=== PATIENT | male | born 1965 | race Caucasian/White ===

== ENCOUNTER 2019-05-09 04:26 | Observation (INO) | payer MEDICARE, OTHER ==
[2019-05-09 05:49] LABS: Anisocytosis Slight; HCT 40.7 % (39.0-53.0); HGB 13.9 gm/dL (13.0-17.5); MCH 30.9 pg (25.0-35.0); MCHC 34.2 g/dL (31.0-37.0); MCV 90.1 fL (80.0-100.0); Mean Platelet Volume 9.5; Poikilocytosis Slight; RBC 4.51 m/uL (4.30-5.90); RDW 16.6 % (11.5-15.5); WBC 6.9 k/uL (3.8-10.6)
[2019-05-09 05:51] LABS: ALT 21 U/L (21-72); AST 24 U/L (17-59); African American GFR (CKD) >90 (>60 ml/min/1.73 sqM); Albumin 4.3 g/dL (3.5-5.0); Alkaline Phosphatase 132 U/L (38-126); Anion Gap 19 mmol/L; Blood Urea Nitrogen 14 mg/dL (9-20); Carbon Dioxide 20 mmol/L (22-30); Chloride 96 mmol/L (98-107); Glucose 87 mg/dL (74-99); Magnesium 1.8 mg/dL (1.6-2.3); Potassium 3.7 mmol/L (3.5-5.1); Sodium 135 mmol/L (137-145); Total Bilirubin 2.3 mg/dL (0.2-1.3); Total Protein 7.3 g/dL (6.3-8.2)
[2019-05-09 05:58] LABS: INR 1.2 (<1.2); Partial Thromboplastin Time 31.3 sec (22.0-30.0); Prothrombin Time 12.1 sec (9.0-12.0)
--- NOTE | 2019-05-09 06:59 | CT ---
EXAM: CT Head Without Intravenous Contrast CLINICAL HISTORY: ITS.REASON CT Reason: right sided weakness x3 days TECHNIQUE: Axial computed tomography images of the head/brain without intravenous contrast. CTDI is 11.1 mGy and DLP is 474.2 mGy-cm. This CT exam was performed using one or more of the following dose reduction techniques: automated exposure control, adjustment of the mA and/or kV according to patient size, and/or use of iterative reconstruction technique. COMPARISON: None. FINDINGS: Brain: No abnormal extra-axial collection is noted. No hemorrhage. Midline shift: No midline shift or mass-effect Ventricles: The ventricular system is unremarkable. Bones/joints: Unremarkable. No acute fracture. Soft tissues: Unremarkable. Sinuses: Unremarkable as visualized. No acute sinusitis. Mastoid air cells: Unremarkable as visualized. No mastoid effusion. IMPRESSION: No acute intracranial pathology. If there is concern for etiology such as early acute lacunar infarct, magnetic resonance imaging of the brain with diffusion-weighted sequences should be performed for follow-up.
--- NOTE | 2019-05-09 07:05 | CT ---
EXAM: CT Angiography Chest With Intravenous Contrast CLINICAL HISTORY: Chest pain. Evaluate for pulmonary embolism. TECHNIQUE: Axial computed tomographic angiography images of the chest with intravenous contrast using pulmonary embolism protocol. CTDI is 11.1 mGy and DLP is 474.2 mGy-cm. This CT exam was performed using one or more of the following dose reduction techniques: automated exposure control, adjustment of the mA and/or kV according to patient size, and/or use of iterative reconstruction technique. MIP reconstructed images were created and reviewed. COMPARISON: None. FINDINGS: Pulmonary arteries: No central pulmonary embolism. Evaluation of the peripheral branch of the pulmonary arteries is limited but grossly unremarkable. Aorta: The thoracic aorta is unremarkable. No thoracic aortic aneurysm. Lungs: Evaluation of the right pulmonary parenchyma reveals subsegmental atelectasis at the right lung base. Left pulmonary parenchyma is unremarkable. No mass. Pleural space: Small right pleural effusion is noted. No pneumothorax. Heart: Unremarkable. No cardiomegaly. No significant pericardial effusion. No evidence of RV dysfunction. Bones/joints: Moderate degenerative disc disease of the thoracic spine is noted. No acute fracture. No dislocation. Soft tissues: Unremarkable. Lymph nodes: Unremarkable. No enlarged lymph nodes. Spleen: Evaluation of bone window images reveals findings of moderate degenerative disc disease. Small hiatal hernia is noted. Evaluation of upper abdominal viscera revealed splenomegaly. Small quantity of ascites is noted surrounding the spleen. IMPRESSION: No pulmonary embolism. Splenomegaly. Ascites. Small hiatal hernia.
[2019-05-09 08:35] LABS: Platelet Count 86 k/uL (150-450)
[2019-05-09] MEDS ORDERED: NALOXONE 0.4 MG/ML 1 ML VIAL IV PRN (08:36)
--- NOTE | 2019-05-09 08:36 | ED ---
Chest Pain HPI - General Chief Complaint: Chest Pain Stated Complaint: chest pain Time Seen by Provider: 05/09/19 04:35 Source: patient Mode of arrival: ambulatory Limitations: no limitations - History of Present Illness Initial Comments: The patient is a 54-year-old male presents to emergency room with reported chest pain. The patient states the pain has been going on for the past 3 days. He describes it as a pleuritic chest pain which is located over the left side of his chest. It is not reproducible with movement. No history of similar in the past. Denies a history of DVT or PE. No unilateral calf pain or swelling. Denies any lower extremity edema. Denies any hormone use, recent surgeries or sedentary lifestyle. The patient denies a history of cardiac disease. He has not seen a physician in 25 years. He admits to associated nausea, diaphoresis. States that he feels short of breath. He denies any fevers or chills. Does admit to a chronic cough as he does have COPD. States that he smokes a pack of cigarettes per day. The patient also reports to numbness and tingling in his right fingers and toes. He denies any headaches or visual changes. No slurred speech or confusion. The symptoms started 3 days ago as well. Admits to generalized weakness. Denies any unilateral weakness. No ripping or tearing sensation to his back. Denies a history of cardiac disease. No vomiting. Denies any changes in his bowel or bladder habits. There are no other alleviating, precipitating or modifying factors - Related Data Previous Rx's Medication Instructions Recorded Albuterol Nebulized [Ventolin 2.5 mg INHALATION RT-QID PRN nebu 05/11/19 Nebulized] Allergies Allergy/AdvReac Type Severity Reaction Status Date / Time No Known Allergies Allergy Verified 05/09/19 07:55 Review of Systems ROS Statement: Those systems with pertinent positive or pertinent negative responses have been documented in the HPI. ROS Other: All systems not noted in ROS Statement are negative. EKG Findings - EKG Comments: EKG Findings:: EKG demonstrates sinus tachycardia with a ventricular rate of 109. DC interval 142. QRS 86. QTC 441. There are ST depressions and T-wave inversions in V3 through V6. No acute ST segment elevations present Past Medical History Past Medical History: No Reported History History of Any Multi-Drug Resistant Organisms: None Reported Past Surgical History: No Surgical Hx Reported Past Psychological History: Bipolar, Depression Smoking Status: Current every day smoker Past Alcohol Use History: Occasional Past Drug Use History: Marijuana - Past Family History Mother Family Medical History: Cancer Father Additional Family Medical History / Comment(s): staph infection General Exam Limitations: no limitations General appearance: alert, in no apparent distress Head exam: Present: atraumatic, normocephalic, normal inspection Eye exam: Present: normal appearance, PERRL, EOMI. Absent: scleral icterus, conjunctival injection, periorbital swelling ENT exam: Present: normal exam, mucous membranes moist Neck exam: Present: normal inspection. Absent: tenderness, meningismus, lymphadenopathy Respiratory exam: Present: normal lung sounds bilaterally. Absent: respiratory distress, wheezes, rales, rhonchi, stridor Cardiovascular Exam: Present: regular rate, normal rhythm, normal heart sounds. Absent: systolic murmur, diastolic murmur, rubs, gallop, clicks GI/Abdominal exam: Present: soft, normal bowel sounds. Absent: distended, tenderness, guarding, rebound, rigid Extremities exam: Present: normal inspection, full ROM, normal capillary refill. Absent: tenderness, pedal edema, joint swelling, calf tenderness Back exam: Present: normal inspection Neurological exam: Present: alert, oriented X3, CN II-XII intact Psychiatric exam: Present: normal affect, normal mood Skin exam: Present: warm, dry, intact, other (jaundice). Absent: rash Course Vital Signs 05/09/19 05/09/19 05/09/19 04:32 04:35 04:50 Temperature 98.0 F Pulse Rate 61 Pulse Rate [ 101 H Clinical Trial Data Manager ] Respiratory 18 Rate Blood Pressure 134/88 144/94 O2 Sat by Pulse 100 99 Oximetry 05/09/19 05/09/19 05/09/19 05:20 05:50 06:20 Temperature Pulse Rate 102 H 102 H 101 H Pulse Rate [ Clinical Trial Data Manager ] Respiratory Rate Blood Pressure 113/70 111/68 125/70 O2 Sat by Pulse 98 97 98 Oximetry 05/09/19 07:35 Temperature Pulse Rate 91 Pulse Rate [ Clinical Trial Data Manager ] Respiratory 16 Rate Blood Pressure 118/69 O2 Sat by Pulse 97 Oximetry Chest Pain MDM - MDM Upon arrival the patient is placed into room 16. He is hooked up to continuous pulse ox and cardiac monitoring. A thorough history and physical exam was performed. Peripheral IV was established. The patient was given 4 mg of morphine for his pain. I also provided him with 324 mg of chewable aspirin. I did recommend laboratory studies and a CT of the patient's chest because it is pleuritic chest pain. The patient did agree to this. Laboratory studies demonstrated a platelet count of 86. PT 12.1, INR 1.2, PTT 31.3, d-dimer of 1.36, sodium 135, chloride 96, alk phos 132, bilirubin 2.3. First troponin is 0.012. BNP is 312. CT of the patient's brain demonstrates no acute pathology. CT of the patient's chest demonstrates no pulmonary embolism, splenomegaly, ascites and small hiatal hernia. . I did discuss his results with the patient. He continues to have chest pain. Because of the patient's chest pain with abnormal EKG I did recommend hospital admission. I did call discuss case with Dr. Prado who did accept admission for the patient. I did inform him of his possible neurologic symptoms however within negative CT of the brain and negative stroke scale with Dr. Prado did accept admission at this hospital. The patient agreed to the treatment plan and was transported to the floor in stable condition Disposition Clinical Impression: Chest pain, Abnormal EKG Disposition: ADMITTED IP TO THIS [facility] Condition: Serious Is patient prescribed a controlled substance at d/c from ED?: No Decision to Admit Reason: Admit from EC Decision Date: 05/09/19 Decision Time: 08:36
[2019-05-09 08:42] LABS: Band Neutrophils % 3 %; Lymphocytes # (M) 0.55 k/uL (1.0-4.8); Metamyelocytes # (M) 0.41 k/uL (0); Metamyelocytes % 6 %; Monocytes # (M) 2.35 k/uL (0-1.0); Myelocytes # (M) 0.14 k/uL (0); Myelocytes % 2 %; Neutrophils % (M) 49 %; Nucleated Red Blood Cells 0 /100 WBC (0-0); Total Cells Counted 200
[2019-05-09] MEDS ORDERED: ASPIRIN 81 MG PO STA (08:42)
[2019-05-09] MEDS: MORPHINE SULFATE 4 MG/ML SYRINGE IV PRN ×2 (09:04→21:20)
--- NOTE | 2019-05-09 09:43 | P.CRDCN ---
History of Present Illness Consult date: 05/09/19 History of present illness: This is a 54-year-old gentleman who claims that his is disabled because of bipolar disorder. Patient. He is to use of marijuana and also alcohol. Currently used to get chest pains in the right side of the chest below the breast intermittently. The pains usually last a day and then subside. This time the pains did not subside and he came to the hospital. He claims he did not eat anything for a few days. He lives by himself. The pain is clearly located on the right side of the chest below the breast. The pain increases on deep breathing and also movements of the chest. He also has some tenderness in that area. Blood work shows abnormal d-dimer. Computed tomography scan of the chest was negative. EKG apparently showed some abnormal findings but at this time I cannot locate it. However, his pains are very atypical and noncardiac. We'll follow his cardiac enzymes. We'll also get an echocardiogram. If the enzymes are negative and echocardiogram is normal, no further cardiac workup is necessary. As an outpatient stress test could be considered later. Review of Systems As per the chart Past Medical History Past Medical History: No Reported History History of Any Multi-Drug Resistant Organisms: None Reported Past Surgical History: No Surgical Hx Reported Past Psychological History: Bipolar, Depression Smoking Status: Current every day smoker Past Alcohol Use History: Occasional Past Drug Use History: Marijuana Medications and Allergies Home Medications Medication Instructions Recorded Confirmed Type No Known Home Medications 05/09/19 05/09/19 History Allergies Allergy/AdvReac Type Severity Reaction Status Date / Time No Known Allergies Allergy Verified 05/09/19 07:55 Physical Exam Vitals: Vital Signs Temp Pulse Pulse Pulse Resp BP BP 05/09/19 09:26 98.0 F 89 16 119/75 05/09/19 07:35 91 16 118/69 05/09/19 06:20 101 H 125/70 05/09/19 05:50 102 H 111/68 05/09/19 05:20 102 H 113/70 05/09/19 04:50 144/94 05/09/19 04:35 101 H 05/09/19 04:32 98.0 F 61 18 134/88 Pulse Ox 05/09/19 09:26 96 05/09/19 07:35 97 05/09/19 06:20 98 09/21/19 05:50 97 05/09/19 05:20 98 05/09/19 04:50 99 05/09/19 04:35 05/09/19 04:32 100 Intake and Output 05/08/19 05/09/19 05/09/19 22:59 06:59 14:59 Other: Weight 102.058 kg GENERAL EXAM: Patient is alert and oriented and doesn't appear to be in any acute distress HEENT: Normocephalic. Normal reaction of pupils, equal size, normal range of extraocular motion. No erythema or exudates in the throat. NECK: No masses, no nuchal rigidity. CHEST: No chest wall deformity. LUNGS: Equal air entry with no crackles or wheeze. HEART: S1 and S2 normal with no audible mumurs or gallops. Regular rhythm, femorals equal on both sides.. ABDOMEN: No hepatosplenomegaly, normal bowel sounds, no guarding or rigidity. SKIN: No rashes CENTRAL NERVOUS SYSTEM: No focal deficits. EXTREMITIES: No cyanosis, clubbing or edema. Results 05/09/19 05:22 05/09/19 05:22 Cardiac Enzymes 05/09/19 05/09/19 Range/Units 05:22 05:22 AST 24 (17-59) U/L Troponin I <0.012 (0.000-0.034) ng/mL Coagulation 05/09/19 Range/Units 05:22 PT 12.1 H (9.0-12.0) sec APTT 31.3 H (22.0-30.0) sec CBC 05/09/19 Range/Units 05:22 WBC 6.9 (3.8-10.6) k/uL RBC 4.51 (4.30-5.90) m/uL Hgb 13.9 (13.0-17.5) gm/dL Hct 40.7 (39.0-53.0) % Plt Count 86 L (150-450) k/uL Comprehensive Metabolic Panel 05/09/19 Range/Units 05:22 Sodium 135 L (137-145) mmol/L Potassium 3.7 (3.5-5.1) mmol/L Chloride 96 L (98-107) mmol/L Carbon Dioxide 20 L (22-30) mmol/L BUN 14 (9-20) mg/dL Creatinine 0.91 (0.66-1.25) mg/dL Glucose 87 (74-99) mg/dL Calcium 9.0 (8.4-10.2) mg/dL AST 24 (17-59) U/L ALT 21 (21-72) U/L Alkaline Phosphatase 132 H (38-126) U/L Total Protein 7.3 (6.3-8.2) g/dL Albumin 4.3 (3.5-5.0) g/dL Current Medications Generic Name Dose Route Start Last Admin Trade Name Freq PRN Reason Stop Dose Admin Morphine Sulfate 4 mg 05/09/19 08:36 05/09/19 09:04 Morphine Sulfate (Inj) IV 4 mg Q4HR PRN Administration Severe Pain Naloxone HCl 0.2 mg 05/09/19 08:36 Narcan IV Q2M PRN Opioid Reversal Intake and Output 05/08/19 05/09/19 05/09/19 22:59 06:59 14:59 Other: Weight 102.058 kg 05/09/19 05:22 05/09/19 05:22 Assessment and Plan (1) Chest pain Current Visit: Yes Status: Acute Code(s): R07.9 - CHEST PAIN, UNSPECIFIED SNOMED Code(s): 19732263 (2) Abnormal EKG Current Visit: Yes Status: Acute Code(s): R94.31 - ABNORMAL ELECTROC ARDIOGRAM [ECG] [EKG] SNOMED Code(s): 767586498 Plan: Patient chest pains are very atypical and muscular skeletal. EKG is not available pertain to get copy of that. We'll get an echocardiogram and follow cardiac enzymes. If the enzymes are negative and echo is normal, patient could be discharged
[2019-05-09 09:57] LABS: Bilirubin, Delta 0.9 mg/dL (0.0-0.2); Bilirubin,Unconjugated 1.4 mg/dL (0.0-1.1); Total Bilirubin 2.3 mg/dL (0.2-1.3)
--- NOTE | 2019-05-09 19:40 | P.HPIM ---
History of Present Illness H&P Date: 05/09/19 Chief Complaint: Chest pain Mr. Hansen is a 54-year-old gentleman with a past medical history of smoking and alcohol abuse coming into the hospital with a chief complaint of right-sided chest pain. He states that the pain started yesterday and is worse on taking a deep breath. Patient denies having any cough or difficulty in breathing. He denies having any fevers chills or rigors. No sick contacts. Patient also mentions that he has mild tenderness in that area. Patient has history of smoking almost 1 pack per day for the past 35-40 years. He also mentions that h e drinks every day. Patient denies having any orthopnea PND or lower extremity swelling. In the emergency department patient had CTA of the chest that was negative for PE. EKG and troponins within normal limits. So he has been admitted to the observation unit. In the observation unit the patient mentioned to the nurse that he has been having suicidal ideation and he has not been eating anything for the past 2 weeks. As per the discussion with the nursing staff patient had an idea of putting her posterior in the bathtub and jumping into it. Patient mentions that he has been feeling like this for the past couple of weeks because of personal issues that he does not want to disclose to me. Patient also reports feeling low for the past couple of weeks. He has low energy. He did not eat for the past 2 weeks. He lost interest in his surroundings. Patient does not have a primary care physician and he was last seen by a doctor 10 years back. He denies any past medical history is and does not take any medications on a regular basis. Review of Systems REVIEW OF SYSTEMS: PSYCH: As per HPI NEURO:No c/o weakness of the extremties, No facial droop, No speech abnormalities. VASCULAR: Peripheral nervous system within the normal limits no edema HEMATOLOGIC: No history of easy bleeding and bruising . No recent infections . RESPIRATORY: No cough, No SOB, No chest discomfort. IMMUNE: No infections INTEGUMENT: no rashes OPHTHALMOLOGIC: No blurry vision and no eye discharge : No dysuria or hematuria CARDIAC: As per HPI MUSCULOSKELETAL : No Aches or pains in the joints or muscles. GI: No abdominal pain, Nausea or vomiting. No constipation or diarrhea. All 13 review of systems are negative except for the ones mentioned above Past Medical History Past Medical History: No Reported History Additional Past Medical History / Comment(s): blindness, chronic back History of Any Multi-Drug Resistant Organisms: None Reported Past Surgical History: No Surgical Hx Reported Past Anesthesia/Blood Transfusion Reactions: No Reported Reaction Past Psychological History: Bipolar, Depression Smoking Status: Current every day smoker Past Alcohol Use History: Occasional Past Drug Use History: Marijuana - Past Family History Mother Family Medical History: Cancer Father Additional Family Medical History / Comment(s): staph infection Medications and Allergies Home Medications Medication Instructions Recorded Confirmed Type No Known Home Medications 05/09/19 05/09/19 History Allergies Allergy/AdvReac Type Severity Reaction Status Date / Time No Known Allergies Allergy Verified 05/09/19 07:55 Physical Exam Vitals: Vital Signs Temp Pulse Pulse Pulse Resp BP BP 05/09/19 16:00 102 H 145/87 05/09/19 11:10 97 123/74 05/09/19 09:26 98.0 F 89 16 119/75 05/09/19 07:35 91 16 118/69 05/09/19 06:20 101 H 125/70 05/09/19 05:50 102 H 111/68 05/09/19 05:20 102 H 113/70 05/09/19 04:50 144/94 05/09/19 04:35 101 H 05/09/19 04:32 98.0 F 61 18 134/88 Pulse Ox 05/09/19 16:00 96 05/09/19 11:10 93 L 05/09/19 09:26 96 05/09/19 07:35 97 05/09/19 06:20 98 05/09/19 05:50 97 05/09/19 05:20 98 05/09/19 04:50 99 05/09/19 04:35 05/09/19 04:32 100 Intake and Output 05/09/19 05/09/19 05/09/19 06:59 14:59 22:59 Intake Total 480 Balance 480 Intake: Oral 480 Other: Weight 102.058 kg GEN. APPEARANCE: alert, in no apparent distress HEAD EXAM: atraumatic, normocephalic, normal inspection EYE EXAM: normal appearance, PERRL, EOMI. Absent: scleral icterus, conjunctival injection, periorbital swelling ENT EXAM: normal exam, mucous membranes moist NECK EXAM: normal inspection. Absent: tenderness, meningismus, full ROM, lymphadenopathy RESPIRATORY EXAM: Bilateral breath sounds are positive. No wheezes or crackles. CARDIOVASCULAR EXAM: regular rate, normal rhythm, normal heart sounds. Absent: systolic murmur, diastolic murmur, rubs, gallop, clicks GI/ABDOMINAL EXAM: soft, normal bowel sounds. Absent: distended, tenderness, guarding, rebound, rigid EXTREMITIES EXAM: normal inspection, full ROM, normal capillary refill. Absent: tenderness, pedal edema, joint swelling, calf tenderness NEUROLOGICAL EXAM: alert, oriented X3, CN II-XII intact, motor sensory deficit PSYCHIATRIC EXAM: Patient is actively suicidal Results CBC & Chem 7: 05/09/19 05:22 05/09/19 05:22 Labs: Abnormal Lab Results - Last 24 Hours (Table) 05/09/19 05/09/19 05/09/19 Range/Units 05:22 05:22 05:22 RDW 16.6 H (11.5-15.5) % Plt Count 86 L (150-450) k/uL Lymphocytes # (Manual) 0.55 L (1.0-4.8) k/uL Monocytes # (Manual) 2.35 H (0-1.0) k/uL Metamyelocytes # (Man) 0.41 H (0) k/uL Myelocytes # (Manual) 0.14 H (0) k/uL PT 12.1 H (9.0-12.0) sec INR 1.2 H (<1.2) APTT 31.3 H (22.0-30.0) sec D-Dimer (<0.60) mg/L FEU Sodium 135 L (137-145) mmol/L Chloride 96 L (98-107) mmol/L Carbon Dioxide 20 L (22-30) mmol/L Total Bilirubin 2.3 H (0.2-1.3) mg/dL Unconjugated Bilirubin (0.0-1.1) mg/dL Delta Bilirubin (0.0-0.2) mg/dL Alkaline Phosphatase 132 H (38-126) U/L 05/09/19 05/09/19 Range/Units 05:22 09:29 RDW (11.5-15.5) % Plt Count (150-450) k/uL Lymphocytes # (Manual) (1.0-4.8) k/uL Monocytes # (Manual) (0-1.0) k/uL Metamyelocytes # (Man) (0) k/uL Myelocytes # (Manual) (0) k/uL PT (9.0-12.0) sec INR (<1.2) APTT (22.0-30.0) sec D-Dimer 1.36 H (<0.60) mg/L FEU Sodium (137-145) mmol/L Chloride (98-107) mmol/L Carbon Dioxide (22-30) mmol/L Total Bilirubin 2.3 H (0.2-1.3) mg/dL Unconjugated Bilirubin 1.4 H (0.0-1.1) mg/dL Delta Bilirubin 0.9 H (0.0-0.2) mg/dL Alkaline Phosphatase (38-126) U/L Thrombosis Risk Factor Assmnt - Choose All That Apply Any of the Below Risk Factors Present?: Yes Each Factor Represents 1 point: Age 41-60 years, Obesity (BMI >25) Other congenital or acquired thrombophilia - If yes, enter type in comment: No Thrombosis Risk Factor Assessment Total Risk Factor Score: 2 Thrombosis Risk Factor Assessment Level: Low Risk Assessment and Plan Assessment: ASSESSMENT Chest pain- rule out ACS Depression with active suicidal ideation Nicotine dependence Alcohol dependence Marijuana use PLAN: Patient had CT of the chest that was negative for PE. EKGs and troponins 3 within normal limits. Cardiology is clear the patient. Patient has chest pain on taking a deep breath, unlikely it would be cardiac. He doesn't have any fevers or cough. So it would most likely be a musculoskeletal chest pain. The patient has active suicidal ideation so psychiatric services has been consulted. Patient has a sitter at the bedside. Patient has been petitioned. Further recommendations to follow depending on the progress of the patient.
[2019-05-10 06:01] LABS: HCT 38.6 % (39.0-53.0); HGB 13.3 gm/dL (13.0-17.5); MCH 31.6 pg (25.0-35.0); MCHC 34.4 g/dL (31.0-37.0); Mean Platelet Volume 9.1; RDW 15.1 % (11.5-15.5); WBC 5.1 k/uL (3.8-10.6)
[2019-05-10 06:10] LABS: African American GFR (CKD) >90 (>60 ml/min/1.73 sqM); Anion Gap 8 mmol/L; Blood Urea Nitrogen 12 mg/dL (9-20); Calcium 8.8 mg/dL (8.4-10.2); Carbon Dioxide 32 mmol/L (22-30); Chloride 96 mmol/L (98-107); Glucose 85 mg/dL (74-99); Potassium 3.5 mmol/L (3.5-5.1); Sodium 136 mmol/L (137-145)
[2019-05-10 06:13] LABS: Platelet Count 76 k/uL (150-450)
[2019-05-10] MEDS: MORPHINE SULFATE 4 MG/ML SYRINGE IV PRN ×2 (08:19→20:20)
--- NOTE | 2019-05-10 13:21 | P.PN ---
Subjective Progress Note Date: 05/10/19 Principal diagnosis: Suicidal ideation Mr. Hansen is a 54-year-old gentleman with a past medical history of smoking and alcohol abuse coming into the hospital with a chief complaint of right-sided chest pain. In the emergency department patient had CTA of the chest that was negative for PE. EKG and troponins within normal limits. So he has been admitted to the observation unit. In the observation unit the patient mentioned to the nurse that he has been having suicidal ideation and he has not been eating anything for the past 2 weeks. As per the discussion with the nursing staff patient had an idea of putting her posterior in the bathtub and jumping into it. Patient mentions that he has been feeling like this for the past couple of weeks because of personal issues that he does not want to disclose to me. On 05/10/2019- patient is in the room with a sitter at the bedside. He still reports that he has suicidal ideation. He does have an active plan, he does not want to disclose that to me. He also complains of pain in the right side of the chest below his ribs or taking a deep breath. He states that morphine has been helping him with the pain. Patient denies having any fever or chest pain. No difficulty in breathing. No palpitations. He denies having abdominal pain nausea vomiting or diarrhea. No dysuria or hematuria. No joint aches or swellings. Active Medications Morphine Sulfate (Morphine Sulfate (Inj)) 4 mg IV Q4HR PRN PRN Reason: Severe Pain Last Admin: 05/10/19 08:19 Dose: 4 mg Documented by: Naloxone HCl (Narcan) 0.2 mg IV Q2M PRN PRN Reason: Opioid Reversal Objective - Vital Signs Vital signs: Vital Signs Temp 98.2 F 05/10/19 11:55 Pulse 85 05/10/19 11:55 Resp 16 05/10/19 11:55 BP 99/59 05/10/19 11:55 Pulse Ox 97 05/10/19 11:55 Intake & Output 05/09/19 05/10/19 05/10/19 18:59 06:59 18:59 Intake Total 480 180 Balance 480 180 Weight 88 kg Intake: Oral 480 180 Other: # Voids 2 2 - Exam GEN. APPEARANCE: alert, in no apparent distress HEAD EXAM: atraumatic, normocephalic, normal inspection EYE EXAM: No pallor. No distress. ENT EXAM: normal exam, mucous membranes moist NECK EXAM: No thyromegaly. No JVD. RESPIRATORY EXAM: Bilateral breath sounds are positive. No wheezes or crackles. CARDIOVASCULAR EXAM: S1 and S2. Nausea and sounds. GI/ABDOMINAL EXAM: soft, normal bowel sounds. Absent: distended, tenderness, guarding, rebound, rigid EXTREMITIES EXAM: No pedal edema. NEUROLOGICAL EXAM: alert, oriented X3, no focal neurological deficits PSYCHIATRIC EXAM: Patient is actively suicidal - Labs CBC & Chem 7: 05/10/19 04:57 05/10/19 04:57 Labs: Abnormal Lab Results - Last 24 Hours (Table) 05/10/19 05/10/19 Range/Units 04:57 04:57 RBC 4.20 L (4.30-5.90) m/uL Hct 38.6 L (39.0-53.0) % Plt Count 76 L (150-450) k/uL Sodium 136 L (137-145) mmol/L Chloride 96 L (98-107) mmol/L Carbon Dioxide 32 H (22-30) mmol/L Assessment and Plan Assessment: ASSESSMENT Chest pain- rule out ACS Depression with active suicidal ideation Nicotine dependence Alcohol dependence Marijuana use PLAN: Patient had CT of the chest that was negative for PE. EKGs and troponins 3 within normal limits. Patient has chest pain on taking a deep breath, unlikely it would be cardiac. He doesn't have any fevers or cough. So it would most likely be a musculoskeletal chest pain. He mentions that morphine has been helping him with the pain. Patient's labs have been reviewed and within normal limits. The patient has active suicidal ideation so psychiatric services has been consulted. Patient has a sitter at the bedside. Patient has been petitioned. Further recommendations to follow depending on the progress of the patient. Awaiting for inpatient psychiatric placement.
[2019-05-11] MEDS: MORPHINE SULFATE 4 MG/ML SYRINGE IV PRN (08:38)
[2019-05-11 08:43] VITALS: RESP 16
[2019-05-11] MEDS ORDERED: ALBUTEROL NEBULIZED 2.5 MG/3 ML INHALATION PRN (10:45)
--- NOTE | 2019-05-11 13:58 | XR ---
EXAMINATION TYPE: XR chest 1V DATE OF EXAM: 05/11/2019 COMPARISON: NONE HISTORY: 54-year-old male with chest pain TECHNIQUE: Single frontal view of the chest is obtained. FINDINGS: Heart normal size. Aorta and pulmonary vasculature within normal limits. Some strandy right mid lung atelectasis. No significant pleural effusion. IMPRESSION: Some strandy atelectasis at the right midlung. Otherwise, no acute process seen.
[2019-05-11 14:42] VITALS: BP 104/67; PULSE 89; TEMP 98.8
--- NOTE | 2019-05-11 16:02 | P.DS ---
Providers Date of admission: 05/09/19 08:36 Expected date of discharge: 05/11/19 Attending physician: Renee Prado Consults: 05/09/19 08:37 Consult Physician Urgent Consulting Provider: [facility] Consult Reason/Comments: acute chest pain, abn ekg Do you want consulting provider notified?: Yes 05/09/19 10:42 Consult Physician Urgent Consulting Provider: Vasquez Meyer Consult Reason/Comments: suicide ideation Do you want consulting provider notified?: Yes Primary care physician: Stated None Hospital Course: Mr. Hansen is a 54-year-old gentleman with a past medical history of smoking and alcohol abuse coming into the hospital with a chief complaint of right-sided chest pain. He states that the pain started yesterday and is worse on taking a deep breath. Patient denies having any cough or difficulty in breathing. He denies having any fevers chills or rigors. No sick contacts. Patient also mentions that he has mild tenderness in that area. Patient has history of smoking almost 1 pack per day for the past 35-40 years. He also mentions that he drinks every day. Patient denies having any orthopnea PND or lower extremity swelling. Patient does not have a primary care physician and he was last seen by a doctor 10 years back. He denies any past medical history is and does not take any medications on a regular basis. In the emergency department patient had CTA of the chest that was negative for PE. EKG and troponins within normal limits. So he has been admitted to the observation unit. In the observation unit the patient mentioned to the nurse that he has been having suicidal ideation and he has not been eating anything for the past 2 weeks. As per the discussion with the nursing staff patient had an idea of putting her posterior in the bathtub and jumping into it. Patient mentions that he has been feeling like this for the past couple of weeks because of personal issues that he does not want to disclose to me. Patient also reports feeling low for the past couple of weeks. He has low energy. He did not eat for the past 2 weeks. He lost interest in his surroundings. Hospital course- because of his suicidal ideation and active suicidal intention, he had a sitter at bedside. He was put on suicide precautions. He was petitioned. As the patient was complaining of right-sided chest pain chest x- ray was obtained on the day of discharge. It showed some right lung atelectasis. Patient was given couple of breathing treatments and he felt better. Patient was advised to stop smoking. He was advised to continue using incentive spirometry. Patient had an inpatient psychiatric hospital availability and so he is being transferred there in stable condition. Patient's vitals and labs within normal limits. Vital Signs 05/11/19 05/11/19 10:34 13:10 Temperature 97.9 F 98.8 F Pulse Rate [ 85 89 Pulse Oximetery ] Respiratory 16 16 Rate Blood Pressure 94/56 104/67 [Left Arm] O2 Sat by Pulse 95 96 Oximetry GEN. APPEARANCE: alert, in no apparent distress HEAD EXAM: atraumatic, normocephalic, normal inspection EYE EXAM: No pallor. No distress. ENT EXAM: normal exam, mucous membranes moist NECK EXAM: No thyromegaly. No JVD. RESPIRATORY EXAM: Bilateral breath sounds are positive. No wheezes or crackles. CARDIOVASCULAR EXAM: S1 and S2. Nausea and sounds. GI/ABDOMINAL EXAM: soft, normal bowel sounds. Absent: distended, tenderness, guarding, rebound, rigid EXTREMITIES EXAM: No pedal edema. NEUROLOGICAL EXAM: alert, oriented X3, no focal neurological deficits PSYCHIATRIC EXAM: Patient is actively suicidal DISCHARGE DIAGNOSIS Chest pain- rule out ACS Depression with active suicidal ideation Nicotine dependence Alcohol dependence Marijuana use PLAN: Patient is being transferred to an inpatient Psychiatric facility. Patient Condition at Discharge: Serious Plan - Discharge Summary Discharge Rx Participant: Yes New Discharge Prescriptions: New Albuterol Nebulized [Ventolin Nebulized] 2.5 mg INHALATION RT-QID PRN nebu PRN Reason: Shortness Of Breath Or Wheezing Discharge Medication List Albuterol Nebulized [Ventolin Nebulized] 2.5 mg INHALATION RT-QID PRN nebu 05/11/19 [Rx] Follow up Appointment(s)/Referral(s): None,Stated [Primary Care Provider] - 1-2 days Discharge Disposition: TRANSFER TO PSYCH HOSP/UNIT
== END 2019-05-11 17:22 ==
LOC: EC 04:26 → 1SOBS 08:36 → 3SCARD 11:02 → 4MS4W 05-11 10:01
PROVIDERS: ADMIT Internal Medicine; ATTEND Internal Medicine
DX: R07.89 Other chest pain (principal); R45.851 Suicidal ideations; R17 Unspecified jaundice; R18.8 Other ascites; J98.11 Atelectasis; R53.1 Weakness; R61 Generalized hyperhidrosis; R11.0 Nausea; J44.9 Chronic obstructive pulmonary disease, unspecified; R20.0 Anesthesia of skin; R20.2 Paresthesia of skin; R94.31 Abnormal electrocardiogram [ECG] [EKG]; F31.9 Bipolar disorder, unspecified; F10.20 Alcohol dependence, uncomplicated; F12.90 Cannabis use, unspecified, uncomplicated; F17.210 Nicotine dependence, cigarettes, uncomplicated; E66.9 Obesity, unspecified; Z68.26 Body mass index [BMI] 26.0-26.9, adult; H54.7 Unspecified visual loss; K44.9 Diaphragmatic hernia without obstruction or gangrene; Z83.1 Family history of other infectious and parasitic diseases; Z80.9 Family history of malignant neoplasm, unspecified
CPT/HCPCS: 96376 ×3; 96374; 99285; 36415; 94760; 93005; 85379; 83880; 80053; 80048; 82248; 83735; 84484; 85025; 85027; 85610; 85730; 71045; 70450; 71275; G0378 ×4; J2270 ×3; Q9967

== ENCOUNTER 2020-08-30 10:45 | Inpatient (IN) | payer MEDICARE, OTHER ==
--- NOTE | 2020-08-30 11:17 | ED ---
General Adult HPI - General Chief complaint: Chest Pain Stated complaint: chest & abd pain Time Seen by Provider: 08/30/20 10:58 Source: patient, RN notes reviewed, old records reviewed Mode of arrival: ambulatory Limitations: no limitations - History of Present Illness Initial comments: 55-year-old male presenting with multiple complaints including chest pain, abdominal pain, abdominal distention and nausea. He states he has no medical problems admits to previous alcohol consumption but states that he has been abstinent for the past one year. He admits to current smoking. He is not on any daily medications. He's had symptoms for at least 2 weeks including increased abdominal distention, generalized abdominal pain, chest pain and no dyspnea. He denies fever. He does report lower extremity edema which is also chronic in nature. - Related Data Home Medications Medication Instructions Recorded Confirmed No Known Home Medications 08/30/20 08/30/20 Allergies Allergy/AdvReac Type Severity Reaction Status Date / Time No Known Allergies Allergy Verified 08/30/20 12:13 Review of Systems ROS Statement: Those systems with pertinent positive or pertinent negative responses have been documented in the HPI. ROS Other: All systems not noted in ROS Statement are negative. Past Medical History Past Medical History: No Reported History Additional Past Medical History / Comment(s): blindness, chronic back History of Any Multi-Drug Resistant Organisms: None Reported Past Surgical History: No Surgical Hx Reported Past Anesthesia/Blood Transfusion Reactions: No Reported Reaction Past Psychological History: Bipolar, Depression Past Alcohol Use History: Occasional Past Drug Use History: Marijuana - Past Family History Mother Family Medical History: Cancer Father Additional Family Medical History / Comment(s): staph infection General Exam Limitations: no limitations General appearance: alert, in no apparent distress Head exam: Present: atraumatic, normocephalic Eye exam: Present: normal appearance ENT exam: Present: normal exam, mucous membranes moist Respiratory exam: Present: rales, decreased breath sounds. Absent: respiratory distress Cardiovascular Exam: Present: regular rate, normal rhythm GI/Abdominal exam: Present: distended, tenderness (Minimally tender), organomeg gia. Absent: guarding, rebound Extremities exam: Present: pedal edema Neurological exam: Present: alert. Absent: motor sensory deficit Skin exam: Present: warm, dry, intact Course Vital Signs 08/30/20 08/30/20 08/30/20 10:46 12:06 13:00 Temperature 97.8 F 97.5 F L Pulse Rate 102 H 98 107 H Respiratory 18 16 22 Rate Blood Pressure 116/78 110/70 110/70 O2 Sat by Pulse 98 99 97 Oximetry EKG Findings - EKG Comments: EKG Findings:: EKG: Sinus tachycardia, rate of 101, IN interval 150, QRS duration 90, QTC 459 T-wave inversion throughout the precordium. Medical Decision Making - Medical Decision Making 55-year-old with severe abdominal distention, minimal pain, this is being to compromise the patient's breathing. He states this has progressed over the course of weeks. No reported fever. He's afebrile in the emergency department with stable blood pressure. Chest x-ray showing some mild bilateral effusions, ultrasound of the abdomen shows no organomegaly and moderate to severe ascites. He does have a white blood cell count 19.9, sodium 126, elevated creatinine elevated BNP. He is given pain control and diuresis in the emergency department additionally started on Rocephin although I have a very low suspicion for spo ntaneous bacterial peritonitis. He's admitted with both gastroenterology and interventional radiology on consult. Case is been discussed with Dr. Prado who will admit. - Lab Data Result diagrams: 08/30/20 11:25 08/30/20 11:25 Lab Results 08/30/20 08/30/20 08/30/20 Range/Units 11:25 11:25 11:25 WBC 19.9 H (3.8-10.6) k/uL RBC 5.63 (4.30-5.90) m/uL Hgb 15.0 (13.0-17.5) gm/dL Hct 45.6 (39.0-53.0) % MCV 81.0 (80.0-100.0) fL MCH 26.7 (25.0-35.0) pg MCHC 32.9 (31.0-37.0) g/dL RDW 16.3 H (11.5-15.5) % Plt Count 126 L (150-450) k/uL MPV 8.3 Neutrophils % (Manual) 65 % Band Neuts % (Manual) 1 % Lymphocytes % (Manual) 5 % Monocytes % (Manual) 29 % Myelocytes % 1 % Neutrophils # (Manual) 13.10 H (1.3-7.7) k/uL Lymphocytes # (Manual) 1.00 (1.0-4.8) k/uL Monocytes # (Manual) 5.77 H (0-1.0) k/uL Myelocytes # (Manual) 0.20 H (0) k/uL Nucleated RBCs 0 (0-0) /100 WBC Manual Slide Review Performed Poikilocytosis Moderate Poikilocytosis (manual Present Anisocytosis Slight PT 13.2 H (9.0-12.0) sec INR 1.3 H (<1.2) APTT 24.5 (22.0-30.0) sec Sodium 126 L (137-145) mmol/L Potassium 5.2 H (3.5-5.1) mmol/L Chloride 93 L (98-107) mmol/L Carbon Dioxide 18 L (22-30) mmol/L Anion Gap 15 mmol/L BUN 38 H (9-20) mg/dL Creatinine 1.96 H (0.66-1.25) mg/dL Est GFR (CKD-EPI)AfAm 43 (>60 ml/min/1.73 sqM) Est GFR (CKD-EPI)NonAf 37 (>60 ml/min/1.73 sqM) Glucose 96 (74-99) mg/dL Calcium 8.5 (8.4-10.2) mg/dL Magnesium 2.4 H (1.6-2.3) mg/dL Total Bilirubin 4.3 H (0.2-1.3) mg/dL AST 38 (17-59) U/L ALT 19 (4-49) U/L Alkaline Phosphatase 117 (38-126) U/L Ammonia (<30) umol/L Troponin I (0.000-0.034) ng/mL NT-Pro-B Natriuret Pep pg/mL Total Protein 7.6 (6.3-8.2) g/dL Albumin 3.4 L (3.5-5.0) g/dL Lipase 182 (23-300) U/L 08/30/20 08/30/20 08/30/20 Range/Units 11:25 11:25 12:06 WBC (3.8-10.6) k/uL RBC (4.30-5.90) m/uL Hgb (13.0-17.5) gm/dL Hct (39.0-53.0) % MCV (80.0-100.0) fL MCH (25.0-35.0) pg MCHC (31.0-37.0) g/dL RDW (11.5-15.5) % Plt Count (150-450) k/uL MPV Neutrophils % (Manual) % Band Neuts % (Manual) % Lymphocytes % (Manual) % Monocytes % (Manual) % Myelocytes % % Neutrophils # (Manual) (1.3-7.7) k/uL Lymphocytes # (Manual) (1.0-4.8) k/uL Monocytes # (Manual) (0-1.0) k/uL Myelocytes # (Manual) (0) k/uL Nucleated RBCs (0-0) /100 WBC Manual Slide Review Poikilocytosis Poikilocytosis (manual Anisocytosis PT (9.0-12.0) sec INR (<1.2) APTT (22.0-30.0) sec Sodium (137-145) mmol/L Potassium (3.5-5.1) mmol/L Chloride (98-107) mmol/L Carbon Dioxide (22-30) mmol/L Anion Gap mmol/L BUN (9-20) mg/dL Creatinine (0.66-1.25) mg/dL Est GFR (CKD-EPI)AfAm (>60 ml/min/1.73 sqM) Est GFR (CKD-EPI)NonAf (>60 ml/min/1.73 sqM) Glucose (74-99) mg/dL Calcium (8.4-10.2) mg/dL Magnesium (1.6-2.3) mg/dL Total Bilirubin (0.2-1.3) mg/dL AST (17-59) U/L ALT (4-49) U/L Alkaline Phosphatase (38-126) U/L Ammonia 12 (<30) umol/L Troponin I <0.012 (0.000-0.034) ng/mL NT-Pro-B Natriuret Pep 3580 pg/mL Total Protein (6.3-8.2) g/dL Albumin (3.5-5.0) g/dL Lipase (23-300) U/L Disposition Clinical Impression: Abdominal ascites, Liver failure Disposition: ADMITTED IP TO THIS HOSP Condition: Stable Is patient prescribed a controlled substance at d/c from ED?: No Referrals: None,Stated [Primary Care Provider] - 1-2 days Decision to Admit Reason: Admit from EC Decision Date: 08/30/20 Decision Time: 14:05
[2020-08-30 12:25] LABS: INR 1.3 (<1.2); Partial Thromboplastin Time 24.5 sec (22.0-30.0); Prothrombin Time 13.2 sec (9.0-12.0)
[2020-08-30 12:28] LABS: Albumin 3.4 g/dL (3.5-5.0); Calcium 8.5 mg/dL (8.4-10.2); Magnesium 2.4 mg/dL (1.6-2.3); Potassium 5.2 mmol/L (3.5-5.1); Total Bilirubin 4.3 mg/dL (0.2-1.3); Total Protein 7.6 g/dL (6.3-8.2)
[2020-08-30 12:29] LABS: Anisocytosis Slight; HCT 45.6 % (39.0-53.0); MCH 26.7 pg (25.0-35.0); MCHC 32.9 g/dL (31.0-37.0); Mean Platelet Volume 8.3; Platelet Count 126 k/uL (150-450); Poikilocytosis Moderate; RBC 5.63 m/uL (4.30-5.90); RDW 16.3 % (11.5-15.5); WBC 19.9 k/uL (3.8-10.6)
--- NOTE | 2020-08-30 12:49 | XR ---
EXAMINATION TYPE: XR chest 2V DATE OF EXAM: 08/30/2020 COMPARISON: Chest x-ray 05/11/2019, CT 05/09/2019 HISTORY: Chest pain TECHNIQUE: Frontal and lateral views of the chest are obtained. FINDINGS: The patient is rotated. There is increased AP diameter of the chest. There is blunting of t he posterior costophrenic angles. Suspect some paravertebral density on the frontal exam. The cardiac silhouette size is within normal limits. The osseous structures are intact, there is thoracic spon dylosis. IMPRESSION: Suspect bilateral pleural effusions and associated atelectasis, correlate to exclude pne umonia. Hiatal hernia.
[2020-08-30 13:01] LABS: Band Neutrophils % 1 %; Monocytes # (M) 5.77 k/uL (0-1.0); Myelocytes % 1 %; Neutrophils % (M) 65 %; Nucleated Red Blood Cells 0 /100 WBC (0-0); Total Cells Counted 200
[2020-08-30 13:02] LABS: Poikilocytosis (M) Present
--- NOTE | 2020-08-30 13:38 | US ---
EXAMINATION TYPE: US abdomen complete DATE OF EXAM: 08/30/2020 COMPARISON: NONE CLINICAL HISTORY: 55-year-old male with abdominal pain and distention. TECHNIQUE: Multiple sonographic images of the abdomen are obtained. FINDINGS: EXAM MEASUREMENTS: Liver Length: 20.2 cm Gallbladder Wall: 0.2 cm CBD: 0.4 cm Spleen: 26.1 cm Right Kidney: 11.3 x 4.0 x 4.8 cm Left Kidney: 11.0 x 4.5 x 4.8 cm Silo Painter notes:Difficult and limited study due to abdominal distension and overlying bowel gas Pancreas: obscured by overlying midline bowel gas Liver: enlarged. Some images suggest slight nodular hepatic contour. No focal lesion is seen. Gallbladder: wnl Evidence for sonographic Peterson's sign: no CBD: visualized portions wnl, limited by overlying bowel gas Spleen: enlarged Right Kidney: wnl Left Kidney: wnl Upper IVC: wnl Abd Aorta: obscured by overlying midline bowel gas Moderate to large amount of abdominal ascites seen in all 4 quadrants IMPRESSION: 1. Moderate to large abdominal ascites throughout the abdomen. 2. Hepatomegaly (20.2 cm) with cirrhotic morphology of the liver. No focal lesion identified. 3. No gallstones or biliary ductal dilatation. 4. Note severe splenomegaly at 26.1 cm.
[2020-08-30] MEDS ORDERED: FUROSEMIDE 10 MG/ML 4 ML VIAL IV STA (13:46)
[2020-08-30] MEDS ORDERED: ASPIRIN 325 MG TAB PO STA (13:47)
[2020-08-30] MEDS ORDERED: NALOXONE 0.4 MG/ML 1 ML VIAL IV PRN (13:47)
[2020-08-30] MEDS: MORPHINE SULFATE 4 MG/ML SYRINGE IV PRN (14:32)
[2020-08-30] MEDS: ALBUMIN HUMAN 25% 50 ML in EMPTY BAG 1 BAG IVPB SCH ×4 (16:48→17:46)
--- NOTE | 2020-08-30 17:51 | US ---
EXAMINATION TYPE: US paracentesis abd w/image DATE OF EXAM: 08/30/2020 COMPARISON: NONE HISTORY: Ascites. PROCEDURE: Maximal barrier technique was utilized. The skin overlying a suitable pocket of fluid was localized with ultrasound and the overlying skin was prepped and draped. Ultrasound was utilized with sterile technique. Lidocaine was used for local anesthesia and a skin arie made with a scalpel. Catheter was advanced under direct ultrasound guidance into a suitable pocket of fluid and approximately 8.7 liter s of serous fluid were removed. Catheter was withdrawn and hemostasis achieved. There is no immedia te complication; the patient is discharged in stable condition. IMPRESSION: STATUS POST ULTRASOUND GUIDED PARACENTESIS FOR PALLIATION OF ASCITES. THIS PROCEDURE WA S PERFORMED BY THE UNDERSIGNED.
[2020-08-30 21:42] LABS: Appearance,BF Clear; Color,BF Yellow; Nucleated Cells, Body Fluid 275 /uL; RBC, Body Fluid 2105 /uL
[2020-08-30] MEDS: FUROSEMIDE 10 MG/ML 4 ML VIAL IV SCH (22:03)
[2020-08-30 22:39] LABS: Mononuclear WBC,Body Fluid 86 %; Polynuclear WBC,Body Fluid 14 %
[2020-08-31] MEDS: MORPHINE SULFATE 4 MG/ML SYRINGE IV PRN ×2 (01:12→08:38)
[2020-08-31 04:16] LABS: Total Protein, Body Fluid 2450 mg/dL
[2020-08-31 04:34] LABS: Glucose, BF Source Ascites; Glucose, Body Fluid 56 mg/dL; LDH, Body Fluid Source Ascites
[2020-08-31 07:24] LABS: Albumin 2.3 g/dL (3.5-5.0); Calcium 7.7 mg/dL (8.4-10.2); Potassium 4.9 mmol/L (3.5-5.1); Total Bilirubin 2.5 mg/dL (0.2-1.3); Total Protein 5.2 g/dL (6.3-8.2)
[2020-08-31 07:31] LABS: Anisocytosis Slight; HCT 34.9 % (39.0-53.0); MCH 26.5 pg (25.0-35.0); MCHC 32.7 g/dL (31.0-37.0); MCV 81.2 fL (80.0-100.0); Mean Platelet Volume 8.8; Poikilocytosis Moderate; RDW 16.4 % (11.5-15.5)
[2020-08-31 07:41] LABS: HGB 11.4 gm/dL (13.0-17.5); Platelet Count 99 k/uL (150-450)
[2020-08-31] MEDS: FUROSEMIDE 10 MG/ML 4 ML VIAL IV SCH (08:38)
[2020-08-31 10:03] LABS: Eosinophils # (M) 0.15 k/uL (0-0.7); Lymphocytes # (M) 1.05 k/uL (1.0-4.8); Metamyelocytes # (M) 0.15 k/uL (0); Metamyelocytes % 1 %; Myelocytes % 2 %; Neutrophils # (M) 6.45 k/uL (1.3-7.7); Neutrophils % (M) 43 %; Nucleated Red Blood Cells 0 /100 WBC (0-0); Promyelocytes % 2 %; Total Cells Counted 200
--- NOTE | 2020-08-31 10:52 | P.HPIM ---
History of Present Illness H&P Date: 08/30/20 Chief Complaint: Increased abdominal girth Patient is a 55-year-old male with a known history of alcohol abuse currently not drinking, everyday smoker, blindness and chronic back pain presents ER with complaints of shortness of breath, abdominal pain and increased girth. Patient was drinking heavily and has been abstinent for the past 1 year. Denied any complaints of fever or chills. No chest pain. No recent illnesses. Patient is also complaining of increased lower action to swelling. Chest x-ray showed suspected bilateral pleural effusions and associated atelectasis, correlate to exclude pneumonia. Hyperlipidemia. Ultrasound of the abdomen showed moderate to large abdominal ascites throughout the abdomen. Hepatomegaly with cirrhotic morphology of the liver. No focal lesion identified. No gallstones or biliary ductal dilatation. Severe splenomegaly. Laboratory data showed no obesity 19.9, hemoglobin 15.0 and platelets 126 INR 1.3 Sodium 126, potassium 5.2, chloride 93, BUN 38 and creatinine 1.96 ProBNP 3480, all within 3.4 Patient is status post paracentesis with 8.9 L of fluid removal. Patient was given a dose of ceftriaxone in the ER. Ascites fluid analysis showed 275 nucleated cells with 14 polynuclear WBCs. Review of Systems Constitutional: Patient denies any fever or chills . No generalized weakness or weight loss. Abdomen: Patient denied nausea vomiting and diarrhea and abdominal pain. Patient does have increased abdominal girth. Cardiovascular: Patient denies any chest pain or short of breath no palpitations. Respiratory: patient denied any cough is from production. Positive shortness of breath Neurologic: Patient denied any numbness or tingling headache. Musculoskeletal: Patient denies any complaints of joint swelling or deformity. Skin: Negative Psychiatric: Negative Endocrine: No heat or cold intolerance. No recent weight gain. Genitourinary: No dysuria or hematuria. All other 14 point ROS negative except the above Past Medical History Past Medical History: No Reported History Additional Past Medical History / Comment(s): blindness, chronic back History of Any Multi-Drug Resistant Organisms: None Reported Past Surgical History: No Surgical Hx Reported Past Anesthesia/Blood Transfusion Reactions: No Reported Reaction Smoking Status: Current every day smoker - Past Family History Mother Family Medical History: Cancer Father Additional Family Medical History / Comment(s): staph infection Medications and Allergies Home Medications Medication Instructions Recorded Confirmed Type No Known Home Medications 08/30/20 08/30/20 History Allergies Allergy/AdvReac Type Severity Reaction Status Date / Time No Known Allergies Allergy Verified 08/30/20 12:13 Physical Exam Vitals: Vital Signs Temp Pulse Pulse Resp BP BP Pulse Ox 08/30/20 18:05 97.3 F L 100 20 91/53 100 08/30/20 17:00 98.3 F 93 20 99/62 100 08/30/20 16:31 98.0 F 96 20 98/52 99 08/30/20 16:10 99 16 93/63 99 08/30/20 15:51 101 H 16 101/62 99 08/30/20 15:28 99 18 104/64 99 08/30/20 15:15 98 16 104/68 100 08/30/20 15:00 104 H 20 122/78 99 08/30/20 14:50 99 16 110/74 100 08/30/20 14:00 96 20 110/70 98 08/30/20 13:00 107 H 22 110/70 97 08/30/20 12:06 97.5 F L 98 16 110/70 99 08/30/20 10:46 97.8 F 102 H 18 116/78 98 Intake and Output 08/30/20 08/30/20 08/30/20 06:59 14:59 22:59 Intake Total 240 Balance 240 Intake: Oral 240 Other: Weight 117.934 kg 117.934 kg PHYSICAL EXAMINATION: Patient is lying in the bed comfortably, no acute distress, awake alert and oriented.. HEENT: Normocephalic. Neck is supple. Pupils reactive. Nostrils clear. Oral cavity is moist. Ears reveal no drainage. Neck reveals no JVD, carotid bruits, or thyromegaly. CHEST EXAMINATION: Trachea is central. Symmetrical expansion. Bibasilar diminished air entry, no wheezing.. CARDIAC: Normal S1, S2 with no gallops. No murmurs ABDOMEN: Soft. Severely distended with ascites and fluid thrill, nontender. Bowel sounds present. Organomegaly could not be assessed. No abdominal bruits. Extremities: 3+ bilateral pedal edema. No clubbing or cyanosis Neurologically awake, alert, oriented x3 with well-coordinated movements. No focal deficits noted Skin: No rash or skin lesions. Psychiatric: Coperative. Nonsuicidal Musculoskeletal: No joint swelling or deformity. Normal range of motion. Results CBC & Chem 7: 08/31/20 06:38 08/31/20 06:38 Labs: Abnormal Lab Results - Last 24 Hours (Table) 08/30/20 08/30/20 08/30/20 Range/Units 11:25 11:25 11:25 WBC 19.9 H (3.8-10.6) k/uL RDW 16.3 H (11.5-15.5) % Plt Count 126 L (150-450) k/uL Neutrophils # (Manual) 13.10 H (1.3-7.7) k/uL Monocytes # (Manual) 5.77 H (0-1.0) k/uL Myelocytes # (Manual) 0.20 H (0) k/uL PT 13.2 H (9.0-12.0) sec INR 1.3 H (<1.2) Sodium 126 L (137-145) mmol/L Potassium 5.2 H (3.5-5.1) mmol/L Chloride 93 L (98-107) mmol/L Carbon Dioxide 18 L (22-30) mmol/L BUN 38 H (9-20) mg/dL Creatinine 1.96 H (0.66-1.25) mg/dL Magnesium 2.4 H (1.6-2.3) mg/dL Total Bilirubin 4.3 H (0.2-1.3) mg/dL Albumin 3.4 L (3.5-5.0) g/dL Thrombosis Risk Factor Assmnt - DVT/VTE Prophylaxis DVT/VTE Prophylaxis: Mechanical Prophylaxis ordered - Choose All That Apply Each Factor Represents 1 point: Age 41-60 years Thrombosis Risk Factor Assessment Total Risk Factor Score: 1 Thrombosis Risk Factor Assessment Level: Low Risk Assessment and Plan Assessment: Shortness of breath secondary to tense ascites Ascites status post paracentesis with 8.9 L fluid removal. Leukocytosis History of severe alcohol abuse and has been abstinent for the past 1 year Liver cirrhosis likely alcoholic Hypervolemic hyponatremia Acute kidney injury with possible underlying CK D/hepatorenal syndrome Hypoalbuminemia Thrombocytopenia due to liver cirrhosis Severe splenomegaly DVT prophylaxis Plan: Patient is status post paracentesis and fluid removal. Continue to monitor blood pressure and patient was started on Lasix IV twice daily and will add Aldactone as blood pressure tolerates. Monitor renal function. Gastroenterology was consulted. We will check hepatitis panel and Alpha fetoprotein level. Follow-up fluid culture report. Prognosis is guarded at this time. Time with Patient: Greater than 30
[2020-08-31] MEDS: PANTOPRAZOLE 40 MG/10 ML VIAL IVP SCH ×2 (12:42→21:13)
[2020-08-31] MEDS: ONDANSETRON 4 MG/2 ML VIAL IVP PRN ×2 (12:51→17:48)
[2020-08-31 13:29] LABS: Hepatitis A Antibody IgM Non-Reactive (Non-Reactive); Hepatitis B Core IgM Non-Reactive (Non-Reactive); Hepatitis B Surface Antigen Non-Reactive (Non-Reactive); Hepatitis C IgG Antibody Non-Reactive (Non-Reactive)
[2020-08-31] MEDS ORDERED: SODIUM CHLORIDE 0.9% 500 ML 500 ML IV ONE ×3 (14:19→23:06)
[2020-08-31] MEDS: SODIUM CHLORIDE 0.9% 1,000 ML IV SCH ×2 (15:13→23:10)
[2020-08-31 16:16] LABS: Alpha Fetoprotein, Tumor Mkr 5.1 ng/mL (0.0-7.9)
[2020-08-31] MEDS ORDERED: traMADol 50 MG TAB PO PRN (20:34)
[2020-08-31] MEDS: LACTULOSE 20 GM/30 ML CUP PO SCH ×2 (21:13→22:52)
--- NOTE | 2020-08-31 22:04 | P.PN ---
Subjective Progress Note Date: 08/31/20 Principal diagnosis: Ascites Patient is a 55-year-old male with a known history of alcohol abuse currently not drinking, everyday smoker, blindness and chronic back pain presents ER with complaints of shortness of breath, abdominal pain and increased girth. Patient was drinking heavily and has been abstinent for the past 1 year. Denied any complaints of fever or chills. No chest pain. No recent illnesses. Patient is also complaining of increased lower action to swelling. Chest x-ray showed suspected bilateral pleural effusions and associated atelectasis, correlate to exclude pneumonia. Hyperlipidemia. Ultrasound of the abdomen showed moderate to large abdominal ascites throughout the abdomen. Hepatomegaly with cirrhotic morphology of the liver. No focal lesion identified. No gallstones or biliary ductal dilatation. Severe splenomegaly. Laboratory data showed no obesity 19.9, hemoglobin 15.0 and platelets 126 INR 1.3 Sodium 126, potassium 5.2, chloride 93, BUN 38 and creatinine 1.96 ProBNP 3480, all within 3.4 Patient is status post paracentesis with 8.9 L of fluid removal. Patient was given a dose of ceftriaxone in the ER. Ascites fluid analysis showed 275 nucleated cells with 14 polynuclear WBCs. 08/31/2020 Patient is currently lying in the bed. Complains of generalized weakness and dizzy. SBP in the 80s. Patient was given 500 cc of normal saline fluid bolus. Patient has been afebrile. No complaints of chest pain. Shortness of breath is better. Laboratory data showed WBC 15.0 improved from 9.9 yesterday. Hemoglobin 11.4 and platelets 99 Sodium level dropped to 121 and chloride 91, BUN 48 and increase it to creatinine 2.84. Lasix has been discontinued. Patient has been afebrile. No nausea or vomiting. Started on low-salt diet. GI is following. Current medications reviewed. Objective - Vital Signs Vital signs: Vital Signs Temp 97.5 F L 08/31/20 04:00 Pulse 93 08/31/20 17:17 Resp 16 08/31/20 17:17 BP 86/50 08/31/20 17:17 Pulse Ox 98 08/31/20 17:17 Intake & Output 08/30/20 08/31/20 08/31/20 18:59 06:59 18:59 Intake Total 240 480 Output Total 100 Balance 240 -100 480 Weight 117.934 kg 98.7 kg Intake: Oral 240 480 Output: Urine 100 Other: Voiding Method Toilet Toilet Urinal Urinal # Voids 2 1 - Exam PHYSICAL EXAMINATION: Patient is lying in the bed comfortably, no acute distress, awake alert and oriented.. HEENT: Normocephalic. Neck is supple. Pupils reactive. Nostrils clear. Oral cavity is moist. Ears reveal no drainage. Neck reveals no JVD, carotid bruits, or thyromegaly. CHEST EXAMINATION: Trachea is central. Symmetrical expansion. Bibasilar diminished air entry, no wheezing.. CARDIAC: Normal S1, S2 with no gallops. No murmurs ABDOMEN: Soft. Severely distended with ascites and fluid thrill, nontender. Bowel sounds present. Organomegaly could not be assessed. No abdominal bruits. Extremities: 3+ bilateral pedal edema. No clubbing or cyanosis Neurologically awake, alert, oriented x3 with well-coordinated movements. No focal deficits noted Skin: No rash or skin lesions. Psychiatric: Coperative. Nonsuicidal Musculoskeletal: No joint swelling or deformity. Normal range of motion. - Labs CBC & Chem 7: 08/31/20 06:38 08/31/20 06:38 Labs: Abnormal Lab Results - Last 24 Hours (Table) 08/31/20 08/31/20 Range/Units 06:38 06:38 WBC 15.0 H (3.8-10.6) k/uL Hgb 11.4 L D (13.0-17.5) gm/dL Hct 34.9 L (39.0-53.0) % RDW 16.4 H (11.5-15.5) % Plt Count 99 L (150-450) k/uL Monocytes # (Manual) 6.90 H (0-1.0) k/uL Metamyelocytes # (Man) 0.15 H (0) k/uL Myelocytes # (Manual) 0.30 H (0) k/uL Promyelocytes # (Man) 0.30 H (0) k/uL Sodium 121 L (137-145) mmol/L Chloride 91 L (98-107) mmol/L Carbon Dioxide 21 L (22-30) mmol/L BUN 48 H (9-20) mg/dL Creatinine 2.84 H (0.66-1.25) mg/dL Calcium 7.7 L (8.4-10.2) mg/dL Total Bilirubin 2.5 H (0.2-1.3) mg/dL Total Protein 5.2 L (6.3-8.2) g/dL Albumin 2.3 L (3.5-5.0) g/dL Microbiology - Last 24 Hours (Table) 08/30/20 15:15 Gram Stain - Preliminary Ascites Fluid Body Fluid Culture - Preliminary 08/30/20 15:15 Anaerobic Culture - Preliminary Ascites Fluid Assessment and Plan Assessment: Shortness of breath secondary to tense ascites Ascites status post paracentesis with 8.9 L fluid removal. Leukocytosis. Possible SBP History of severe alcohol abuse and has been abstinent for the past 1 year Liver cirrhosis likely alcoholic Hypervolemic hyponatremia Acute kidney injury with possible underlying CK D/hepatorenal syndrome Hypoalbuminemia Thrombocytopenia due to liver cirrhosis Severe splenomegaly DVT prophylaxis Plan: Patient is status post paracentesis and fluid removal. Continue to monitor blood pressure and Gentle IV hydration.. Monitor renal function. Gastroenterology and Nephrology was consulted. negative hepatitis panel. ordered Alpha fetoprotein level. Follow-up fluid culture report. Prognosis is guarded at this time. Time with Patient: Greater than 30
[2020-09-01 01:27] LABS: Glucose,Whole Blood 120 mg/dL (75-99)
[2020-09-01] MEDS: NOREPINEPHRINE 4 MG in SODIUM CHLORIDE 0.9% 250 ML IV SCH ×4 (01:40→17:36)
[2020-09-01] MEDS: ONDANSETRON 4 MG/2 ML VIAL IVP PRN ×2 (03:32→10:14)
[2020-09-01] MEDS: MORPHINE SULFATE 4 MG/ML SYRINGE IV PRN ×2 (03:43→10:41)
[2020-09-01 05:11] LABS: Anisocytosis Slight; HCT 32.8 % (39.0-53.0); HGB 11.4 gm/dL (13.0-17.5); MCH 28.3 pg (25.0-35.0); MCHC 34.7 g/dL (31.0-37.0); MCV 81.5 fL (80.0-100.0); Mean Platelet Volume 9.3; Poikilocytosis Moderate; RBC 4.02 m/uL (4.30-5.90); RDW 16.3 % (11.5-15.5)
[2020-09-01 05:12] LABS: Platelet Count 84 k/uL (150-450)
[2020-09-01 05:19] LABS: INR 1.3 (<1.2); Prothrombin Time 13.2 sec (9.0-12.0)
[2020-09-01 05:21] LABS: Albumin 2.4 g/dL (3.5-5.0); Calcium 7.6 mg/dL (8.4-10.2); Potassium 5.1 mmol/L (3.5-5.1); Total Bilirubin 2.3 mg/dL (0.2-1.3); Total Protein 5.3 g/dL (6.3-8.2)
--- NOTE | 2020-09-01 06:52 | XR ---
EXAMINATION TYPE: XR chest 1V portable DATE OF EXAM: 09/01/2020 CLINICAL HISTORY: Difficulty breathing progress study. TECHNIQUE: Single AP portable upright view of the chest is obtained. COMPARISON: Chest x-ray from 2 days earlier and older studies FINDINGS: Tiny bilateral pleural effusions are felt to remain present and associated bibasilar atele ctasis and/or infiltrate. Upper lungs remain clear. Background low lung volumes redemonstrated. Cardi ac silhouette size stable and within normal limits. Underlying scoliotic curvature. IMPRESSION: Low lung volumes with small tiny bilateral pleural effusions and associated patchy bibasi lar atelectasis and/or infiltrate. No significant change from most recent x-ray.
[2020-09-01] MEDS: LACTULOSE 20 GM/30 ML CUP PO SCH ×2 (08:20→21:46)
[2020-09-01] MEDS: PANTOPRAZOLE 40 MG/10 ML VIAL IVP SCH ×2 (08:20→21:46)
--- NOTE | 2020-09-01 09:49 | US ---
EXAMINATION TYPE: US abdomen limited DATE OF EXAM: 09/01/2020 COMPARISON: Ultrasound abdomen Limited 2 days ago CLINICAL HISTORY: please assess for fluid pocket. Ascites Large amount of fluid visualized. IMPRESSION: Moderate to large amount of intraperitoneal ascites redemonstrated on 3 images saved.
--- NOTE | 2020-09-01 10:35 | P.CNPUL ---
History of Present Illness Consult date: 09/01/20 Reason for consult: other Chief complaint: Hypotension, weakness. History of present illness: 55-year-old male who apparently does not see a doctor on a regular basis. The patient presented to the emergency room on August 30 at 1045, with multiple complaints including chest pain, abdominal pain, abdominal distention, nausea, lower extremity edema, and shortness of breath. The patient is a recovering alcoholic and states she's not had anything to drink in one year. He does admit to smoking on a daily basis. He apparently does not take any medications on a regular basis although one point, he was on Abilify, and Zoloft. He has not been feeling well for a couple weeks or so prior to this admission. On this admission, he was seen by interventional radiology and had a high volume paracentesis. On August 30, 8 L was removed. He did have albumin replacement therapy. The patient came to the intensive care unit on August 31 for low blood pressure. An "A" was called last night and the patient was transferred down after one of the ICU nurses, Teresa Beckett, evaluated the patient. Currently, the patient is on O2 at 2 L by nasal cannula saline at 75 mL an hour, and norepinephrine at 13 mcg/m. We will ask interventional radiology to repeat the paracentesis. His transduced bladder pressure was 13. Currently, he apparently takes no medications at home. Review of Systems REVIEW OF SYSTEMS: CONSTITUTIONAL: Weakness. NEUROLOGIC: [ Negative.] HEENT: [ Negative.] CARDIAC: [Negative.] PULMONARY: Shortness of breath. GI: Abdominal distention, abdominal pain, and nausea. : [Negative.] RHEUMATOLOGIC: [ Negative.] IMMUNOLOGIC: [ Negative.] ENDOCRINE: [Negative. ] DERMATOLOGIC: [Negative.] Past Medical History Past Medical History: No Reported History Additional Past Medical History / Comment(s): blindness, chronic back History of Any Multi-Drug Resistant Organisms: None Reported Past Surgical History: No Surgical Hx Reported Past Anesthesia/Blood Transfusion Reactions: No Reported Reaction Smoking Status: Current every day smoker - Past Family History Mother Family Medical History: Cancer Father Additional Family Medical History / Comment(s): staph infection Medications and Allergies Home Medications Medication Instructions Recorded Confirmed Type No Known Home Medications 08/30/20 08/30/20 History Allergies Allergy/AdvReac Type Severity Reaction Status Date / Time No Known Allergies Allergy Verified 08/30/20 12:13 Physical Exam Osteopathic Statement: *. No significant issues noted on an osteopathic structural exam other than those noted in the History and Physical/Consult. Vitals: Vital Signs Temp Pulse Pulse Resp BP BP Pulse Ox 09/01/20 09:30 98 16 92/50 98 09/01/20 09:15 96 13 91/52 98 09/01/20 09:00 95 18 92/52 97 09/01/20 08:45 98 13 82/62 98 09/01/20 08:30 96 23 95/50 99 09/01/20 08:15 90 14 95/55 99 09/01/20 08:00 98 20 99/55 98 09/01/20 07:45 97.8 F 95 16 91/53 99 09/01/20 07:30 93 12 96/50 98 09/01/20 07:15 92 11 L 91/58 98 09/01/20 07:00 90 12 93/55 97 09/01/20 06:50 89 15 93/55 99 09/01/20 06:40 90 15 97/59 98 09/01/20 06:30 98 21 102/59 97 09/01/20 06:20 96 19 102/59 98 09/01/20 06:10 96 20 89/51 99 09/01/20 06:00 96 11 L 96/59 97 09/01/20 05:50 94 11 L 96/59 97 09/01/20 05:40 96 18 91/50 98 09/01/20 05:30 91 10 L 89/55 98 09/01/20 05:20 85 11 L 89/55 97 09/01/20 05:10 97 16 93/59 97 09/01/20 05:00 95 15 88/54 98 09/01/20 04:50 98 17 98 09/01/20 04:40 92 11 L 90/56 97 09/01/20 04:30 86 13 90/47 98 09/01/20 04:20 91 18 90/47 98 09/01/20 04:10 93 12 97/60 98 09/01/20 04:00 98.6 F 102 H 96 25 H 92/55 97 09/01/20 03:50 100 21 92/55 98 09/01/20 03:40 95 10 L 98/47 99 09/01/20 03:30 92 25 H 99 09/01/20 03:20 94 26 H 98 09/01/20 03:10 89 18 93/52 98 09/01/20 03:00 91 15 84/52 99 09/01/20 02:50 89 18 84/52 98 09/01/20 02:40 90 12 88/52 97 09/01/20 02:30 17 101/79 98 09/01/20 02:20 91 22 101/79 97 09/01/20 02:10 85 19 88/47 98 09/01/20 02:00 86 25 H 89/51 97 09/01/20 01:50 92 15 89/51 98 09/01/20 01:40 96 22 96 09/01/20 01:30 100 23 98 09/01/20 01:23 88 17 09/01/20 00:59 73/44 09/01/20 00:51 80/40 09/01/20 00:45 88/53 09/01/20 00:33 74/36 09/01/20 00:28 81/41 09/01/20 00:15 76/48 09/01/20 00:06 81/42 08/31/20 23:59 97.4 F L 91 19 77/41 99 08/31/20 23:45 83/53 08/31/20 23:33 83/44 08/31/20 23:22 76/38 08/31/20 23:17 85/45 08/31/20 23:13 77/43 08/31/20 23:07 82/45 08/31/20 23:00 59/27 08/31/20 22:54 75/50 08/31/20 22:51 85/49 08/31/20 22:46 77/38 08/31/20 20:00 97.6 F 96 18 93/57 99 08/31/20 17:17 93 16 86/50 98 08/31/20 16:00 90 17 90/50 98 08/31/20 14:00 93 16 08/31/20 12:00 94 16 82/49 94 L Intake and Output 08/31/20 09/01/20 09/01/20 22:59 06:59 14:59 Intake Total 1540 1000 150 Output Total 10 53 Balance 1540 990 97 Intake: IV 300 150 .9 @ 75mL/hr 300 150 Intake, IV Titration 1300 650 Amount Sodium Chloride 0.9% 1, 200 150 000 ml @ 75 mls/hr IV . [id number] [facility] Rx#:[id number] Sodium Chloride 0.9% 500 500 ml 500 ml @ 999 mls/hr IV .Q31M ONE Rx#:[id number] Sodium Chloride 0.9% 500 500 ml 500 ml @ 999 mls/hr IV .Q31M ONE Rx#:[id number] Sodium Chloride 0.9% 500 500 ml 500 ml @ 999 mls/hr IV .Q31M ONE Rx#:[id number] cefTRIAXone 1 gm In 100 Sodium Chloride 0.9% 50 ml @ 100 mls/hr IVPB Q24HR [facility] Rx#:[id number] Oral 240 50 Output: Urine 10 53 Other: Voiding Method Indwelling Catheter Indwelling Catheter Indwelling Catheter # Voids 1 Weight 101.7 kg No acute distress, oriented 3. Nasal O2 in place. The patient appears pale. HEENT examination is grossly unremarkable. Mucous membranes are moist. No oral lesions. Neck supple. Full range of motion. No adenopathy thyromegaly or neck vein distention. Cardiovascular examination reveals regular rhythm rate. S1-S2 normal. No S3 or S4. No discernible murmur noted. Heart rate is 98 bpm. Lungs reveal clear breath sounds. Her sounds are equal bilaterally. No adventitious lung sounds including wheezes rhonchi or crackles. Abdomen is tender on palpation. Abdomen is quite distended. There appears to be a fluid wave. No masses. Extremities reveal 1-2+ edema. No cyanosis or clubbing. Skin is without rash or lesion. Neurologic examination is brief but nonfocal. Results - Laboratory Findings CBC and BMP: 09/01/20 04:50 09/01/20 04:50 PT/INR, D-dimer PT 13.2 sec (9.0-12.0) H 09/01/20 04:50 INR 1.3 (<1.2) H 09/01/20 04:50 Abnormal lab findings: Abnormal Labs 08/30/20 08/30/20 08/30/20 11:25 11:25 11:25 WBC 19.9 H RBC Hgb Hct RDW 16.3 H Plt Count 126 L Neutrophils # (Manual) 13.10 H Monocytes # (Manual) 5.77 H Metamyelocytes # (Man) Myelocytes # (Manual) 0.20 H Promyelocytes # (Man) PT 13.2 H INR 1.3 H Sodium 126 L Potassium 5.2 H Chloride 93 L Carbon Dioxide 18 L BUN 38 H Creatinine 1.96 H Glucose POC Glucose (mg/dL) Calcium Magnesium 2.4 H Total Bilirubin 4.3 H Total Protein Albumin 3.4 L 08/31/20 08/31/20 09/01/20 06:38 06:38 01:25 WBC 15.0 H RBC Hgb 11.4 L D Hct 34.9 L RDW 16.4 H Plt Count 99 L Neutrophils # (Manual) Monocytes # (Manual) 6.90 H Metamyelocytes # (Man) 0.15 H Myelocytes # (Manual) 0.30 H Promyelocytes # (Man) 0.30 H PT INR Sodium 121 L Potassium Chloride 91 L Carbon Dioxide 21 L BUN 48 H Creatinine 2.84 H Glucose POC Glucose (mg/dL) 120 H Calcium 7.7 L Magnesium Total Bilirubin 2.5 H Total Protein 5.2 L Albumin 2.3 L 09/01/20 09/01/20 09/01/20 04:50 04:50 04:50 WBC 23.0 H RBC 4.02 L Hgb 11.4 L Hct 32.8 L RDW 16.3 H Plt Count 84 L Neutrophils # (Manual) Monocytes # (Manual) Metamyelocytes # (Man) Myelocytes # (Manual) Promyelocytes # (Man) PT 13.2 H INR 1.3 H Sodium 123 L Potassium Chloride 96 L Carbon Dioxide 17 L BUN 55 H Creatinine 3.73 H Glucose 108 H POC Glucose (mg/dL) Calcium 7.6 L Magnesium Total Bilirubin 2.3 H Total Protein 5.3 L Albumin 2.4 L - Diagnostic Findings CT scan - chest: image reviewed Assessment and Plan Assessment: Chronic alcoholic liver disease with alcoholic cirrhosis. Previous history of heavy alcohol consumption, although patient states he has not had anything to drink in one year. Severe abdominal ascites, status post high volume paracentesis on 08/30/2020. Anemia of chronic disease. 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 Mild alcohol induced coagulopathy. Hyponatremia. Chronic kidney disease. Non-anion gap metabolic acidosis. Hyperbilirubinemia. Chronic constipation. Plan: Plan dated 09/01/2020. The patient remains on norepinephrine at 13 mcg/m. The patient may have a component of abdominal compartment syndrome. His transduced bladder pressure was not particularly high. The patient will have interventional radiology see him again today for another high-volume paracentesis. The patient apparently has not had anything to drink for year. He will also be seen by gastroenterology. His prognosis is poor. Additional recommendations and suggestions are forthcoming. I will add some midodrine to improve his blood pressure at 10 mg 3 times a day. Time with Patient: Greater than 30
[2020-09-01] MEDS: MIDODRINE 5 MG TAB PO SCH ×2 (12:12→17:35)
--- NOTE | 2020-09-01 13:43 | P.CONS ---
History of Present Illness - Reason for Consult Consult date: 08/31/20 Ascites, cirrhosis Requesting physician: Renee Prado - Chief Complaint Abdominal distention, decreased oral and - History of Present Illness 55-year-old male with a medical history significant for alcohol abuse in the past, tobacco abuse, visual impairment and chronic back pain who presented to the hospital complaints of abdominal pain and distention and shortness of breath. The patient was found to have a large amount of ascites and is status post paracentesis with 8.6 L of ascitic fluid removed from the abdomen. He reports symptoms of abdominal pain and distention which has been worsening over the past month. He reports decreased oral intake secondary to this. He's had episodes of vomiting in association with his symptoms and reports that he has felt short of breath. He is a long-standing history of daily alcohol use for 40 years but has been sober for 1 year. Patient denies any prior history of hepatic encephalopathy, GI bleed or a ascites or paracentesis. No prior colonoscopy or EGD. He denies any signs or symptoms of GI bleeding. On pres entation patient had elevated creatinine at 2.8 with total bilirubin 2.5, alkaline phosphatase 62, AST 23 and ALTs 13. Lipase 182, amylase 12. Platelet count 99,000 with WBC of 15, hemoglobin 11.4 and INR 1.3. Patient's sodium was markedly depressed. Review of Systems REVIEW OF SYSTEMS: CONSTITUTIONAL: Denies any fevers, chills, weight change or fatigue. CARDIOVASCULAR: Denies any chest pain, palpitations high or low blood pressures RESPIRATORY: Denies any shortness of breath, hemoptysis or cough, shortness of breath improved after paracentesis. GENITOURINARY: No dysuria or hematuria. MUSCULOSKELETAL: No weakness reported. SKIN: Denies any new rashes or lesions, jaundice or pallor. PSYCHIATRIC: Denies any depression or anxiety. NEUROLOGY: Denies headache, denies any new focal deficits. EARS/NOSE/THROAT: No recent hearing change, congestion, nasal discharge or sore throat. EYES: No pain in eyes, discharge or change in vision. GASTROINTESTINAL: As per HPI. Past Medical History Past Medical History: No Reported History Additional Past Medical History / Comment(s): blindness, chronic back History of Any Multi-Drug Resistant Organisms: None Reported Past Surgical History: No Surgical Hx Reported Past Anesthesia/Blood Transfusion Reactions: No Reported Reaction Smoking Status: Current every day smoker - Past Family History Mother Family Medical History: Cancer Father Additional Family Medical History / Comment(s): staph infection Medications and Allergies Home Medications Medication Instructions Recorded Confirmed Type No Known Home Medications 08/30/20 08/30/20 History Allergies Allergy/AdvReac Type Severity Reaction Status Date / Time No Known Allergies Allergy Verified 08/30/20 12:13 Physical Exam Vitals: Vital Signs Temp Pulse Pulse Resp BP BP Pulse Ox 08/31/20 04:00 97.5 F L 97 17 87/51 100 08/31/20 02:00 17 08/31/20 00:00 97.4 F L 87 17 92/58 100 08/30/20 20:00 97.6 F 87 18 87/55 100 08/30/20 18:05 97.3 F L 100 20 91/53 100 08/30/20 17:00 98.3 F 93 20 99/62 100 08/30/20 16:31 98.0 F 96 20 98/52 99 08/30/20 16:10 99 16 93/63 99 08/30/20 15:51 101 H 16 101/62 99 08/30/20 15:28 99 18 104/64 99 08/30/20 15:15 98 16 104/68 100 08/30/20 15:00 104 H 20 122/78 99 08/30/20 14:50 99 16 110/74 100 Intake and Output 08/30/20 08/31/20 08/31/20 22:59 06:59 14:59 Intake Total 240 120 Output Total 100 Balance 140 120 Intake: Oral 240 120 Output: Urine 100 Other: Voiding Method Toilet Toilet Urinal Urinal # Voids 2 Weight 117.934 kg 98.7 kg On physical examination, patient appears comfortable in no apparent distress. HEAD: Normocephalic, atraumatic. EYES: No scleral icterus. No conjunctival injection. MOUTH: No lesions, tongue midline. NECK: Trachea midline, no gross abnormalities. CHEST: Clear to auscultation with no wheezing or rhonchi appreciated. HEART: Regular rate and rhythm. ABDOMEN: Soft, moderately distended with positive fluid wave. Bowel sounds are positive. No organomegaly. No guarding or rigidity. EXTREMITIES: Bilateral pedal edema. SKIN: No rashes, no jaundice. NEUROLOGIC: Alert and oriented x3. Results CBC & Chem 7: 09/01/20 04:50 09/01/20 04:50 Labs: Abnormal Lab Results - Last 24 Hours (Table) 08/31/20 08/31/20 Range/Units 06:38 06:38 WBC 15.0 H (3.8-10.6) k/uL Hgb 11.4 L D (13.0-17.5) gm/dL Hct 34.9 L (39.0-53.0) % RDW 16.4 H (11.5-15.5) % Plt Count 99 L (150-450) k/uL Monocytes # (Manual) 6.90 H (0-1.0) k/uL Metamyelocytes # (Man) 0.15 H (0) k/uL Myelocytes # (Manual) 0.30 H (0) k/uL Promyelocytes # (Man) 0.30 H (0) k/uL Sodium 121 L (137-145) mmol/L Chloride 91 L (98-107) mmol/L Carbon Dioxide 21 L (22-30) mmol/L BUN 48 H (9-20) mg/dL Creatinine 2.84 H (0.66-1.25) mg/dL Calcium 7.7 L (8.4-10.2) mg/dL Total Bilirubin 2.5 H (0.2-1.3) mg/dL Total Protein 5.2 L (6.3-8.2) g/dL Albumin 2.3 L (3.5-5.0) g/dL Microbiology - Last 24 Hours (Table) 08/30/20 15:15 Gram Stain - Preliminary Ascites Fluid Body Fluid Culture - Preliminary 08/30/20 15:15 Anaerobic Culture - Preliminary Ascites Fluid US - abdomen: report reviewed (Ultrasound-guided paracentesis of the abdomen with a 0.7 L of ascitic fluid removed.) Assessment and Plan (1) Decompensated hepatic cirrhosis Narrative/Plan: 55-year-old male with a medical history significant for significant alcohol abuse for 40 years for which she has been sober for 1 year presented to the hospital due to abdominal distention, decreased oral intake and shortness of breath. Paracentesis was performed with 8.7 L of ascitic fluid removed. Suspicion is for decompensated alcoholic cirrhosis of the liver with new onset ascites. No prior history of encephalopathy or GI bleed. Patient's care is somewhat complicated as he is hyponatremic with elevated creatinine. Current Visit: Yes Status: Acute Code(s): K72.90 - HEPATIC FAILURE, UNSPECIFIED WITHOUT COMA; K74.60 - UNSPECIFIED CIRRHOSIS OF LIVER SNOMED Code(s): 242725189 (2) Abdominal ascites Current Visit: Yes Status: Acute Code(s): R18.8 - OTHER ASCITES SNOMED Code(s): 435227550 Plan: Supportive care Okay for sodium restricted diet as tolerated Continue alcohol abstinence Currently patient is receiving Lasix twice daily, however in the setting of elevated creatinine and hyponatremia this may need to be discontinued and nephrology has been consult for further management and help in the care of this patient Sodium restricted diet discussed with the patient at length This patient has further paracentesis will need albumin if greater than 5 L are removed Patient will need continued follow up with GI after discharge Lactulose has been started empirically, ammonia normal, as the patient does report some difficulty sleeping Continue empiric ceftriaxone although fluid studies were not suggestive of SBP Thank you for allowing us to participate in the care of the patient
[2020-09-01] MEDS ORDERED: ALBUMIN HUMAN 25% 50 ML in EMPTY BAG 1 BAG IVPB ONE (14:39)
[2020-09-01] MEDS: OCTREOTIDE 100 MCG/ML INJ SQ SCH (15:09)
--- NOTE | 2020-09-01 15:57 | US ---
Ultrasound-guided paracentesis. DATE OF EXAM: 09/01/2020 CLINICAL HISTORY: Ascites The procedure was discussed with the patient. The risks, complications, benefits, and alternatives we re discussed and any questions were answered. Informed consent was obtained. The patient was placed s upine on the ultrasound table and prepped and draped in the usual sterile fashion. All elements of maximal barrier technique were utilized. Under ultrasound guidance, access into the left lower quadrant was obtained, via the paracentesis catheter system and direct ultrasound guidance . Approximately 12 liters of straw-colored fluid was removed. The patient was stable throughout the pro cedure and remained stable upon discharge from Department of Radiology. IMPRESSION: Successful paracentesis under ultrasound guidance.
[2020-09-01] MEDS ORDERED: FUROSEMIDE 10 MG/ML 4 ML VIAL IV STA (16:11)
[2020-09-01 16:15] LABS: Appearance,Urine Turbid (Clear); Bacteria,Urine Few /hpf; Bilirubin,Urine 1+ (Negative); Blood,Urine Large (Negative); Color,Urine Light Red; Glucose,Urine (UA) Negative (Negative); Granular Casts,Urine 8 /lpf (0); Hyaline Casts,Urine 148 /lpf (0-2); Ketones,Urine Negative (Negative); Leukocyte Esterase,Urine Large (Negative); Mucus,Urine Few /hpf; Nitrite,Urine Negative (Negative); Protein,Urine 2+ (Negative); RBC,Urine >182 /hpf (0-5); Specific Gravity,Urine 1.018 (1.001-1.035); Sperm,Urine Moderate /hpf; Squamous Epithelial Cell,Urine 2 /hpf (0-4); Urobilinogen,Urine <2.0 mg/dL (<2.0); WBC,Urine 111 /hpf (0-5)
[2020-09-01] MEDS: ALBUMIN HUMAN 25% 50 ML in EMPTY BAG 1 BAG IVPB SCH ×4 (16:15→18:00)
--- NOTE | 2020-09-01 16:24 | CONS ---
CONSULTATION REASON FOR CONSULT: Hyponatremia and acute kidney injury. HISTORY OF PRESENT ILLNESS: Patient is a 55-year-old male with history of chronic liver disease secondary to EtOH abuse. He was admitted to the hospital with abdominal pain and discomfort, worsening abdominal distention, increased weakness. He denied any fever, chills or cough. The patient developed significant hypotension after paracentesis which was done on 08/30/2020. He had about 8 L of fluid removed. The patient was subsequently transferred to the ICU and has been maintained on Levophed. Currently, Levophed is at about 13 mcg. Serum creatinine was 1.96 on initial admission. It has increased to 3.73 today. Urine output at about 30 mL an hour. The patient is scheduled for paracentesis again today. Serum sodium was 126 on initial admission, it decreased to 121 and today it is at 123. The patient received a couple of liters of normal saline bolus yesterday when he was hypotensive and is currently maintained on normal saline at 75 mL an hour. Previous sodium on 05/10/2019 was 136. The patient received a dose of Lasix as well post admission. At home, he was not on any specific medications. Patient states he has not been eating much for about 4 weeks now as he feels full and has been nauseated. AST, ALT are not elevated. Total bilirubin is 2.5. No active GI bleed noted at this time. PAST MEDICAL HISTORY: Significant for chronic liver disease, recently diagnosed. MEDICATIONS: No medications at home. SOCIAL HISTORY: Positive for smoking. No history of drug abuse. Patient has history of EtOH abuse. However, he has been sober for about a year. MEDICATIONS: None. ALLERGIES: None. REVIEW OF SYSTEMS: As per HPI. Other systems negative. PHYSICAL EXAMINATION: Patient is awake, comfortable. His blood pressure is on the lower side about 92/50, heart rate is 98 per minute. Patient is afebrile. EXAMINATION OF THE HEART: S1, S2. EXAMINATION OF LUNGS: Decreased breath sounds at bases. Abdomen is distended with ascites, nontender. Examination of lower extremities shows chronic skin changes with chronic edema about 2+ bilaterally. [employer]MAIL [employer] exam grossly intact. LABS: Labs show sodium 123, potassium 5.1, CO2 of 17, BUN 55 serum creatinine 3.73, albumin 2.4. UA is not available. Hemoglobin was 11.4, white cell count 23. ASSESSMENT: 1. Acute kidney injury, currently nonoliguric. Urine output is borderline. It is decreasing possible hepatorenal syndrome. I will maintain patient on midodrine. He will be given albumin and we will also add Sandostatin. 2. Hyponatremia which is hypervolemic. Patient has significant edema however he is severely hypotensive, particularly given the large volume paracentesis. He is maintained on IV fluids. Sodium has not worsened. However, I will check another serum sodium this afternoon. I will probably give him a dose of IV Lasix depending on his sodium this afternoon. Continue with the pressors for now. 3. Portal hypertension, ascites secondary to liver cirrhosis. 4. Liver cirrhosis, most likely alcoholic, being followed by GI. 5. Gastroesophageal reflux disease, maintained on Protonix. 6. Metabolic acidosis associated with renal failure. PLAN: Repeat sodium this evening, add IV Lasix depending on the repeat sodium. If his acidosis worsens, I will change the IV fluids to bicarb drip, add albumin. Continue with the midodrine and add Sandostatin as well for possible hepatorenal syndrome. Repeat labs in a.m. Overall prognosis is guarded. Thank you for this consultation. Will continue to follow the patient with you during his hospitalization. MMODL / IJN: [id number] /
--- NOTE | 2020-09-01 17:40 | P.PN ---
Subjective Progress Note Date: 09/01/20 Principal diagnosis: Abdominal distention, decreased oral intake, Ascites Patient was seen and examined sitting up in bed in the ICU. He did not appear in any acute distress at this time. He was transferred to the ICU through the middle of the night for hypotensive events. He is currently on Levaquin 5. He continues to complain of abdominal discomfort with abdominal distention. He is status post paracentesis 2 days ago with removal of 8.6 L of fluid. Fluid studies were not consistent with spontaneous bacterial peritonitis. Objective - Vital Signs Vital signs: Vital Signs Temp 97.8 F 09/01/20 07:45 Pulse 98 09/01/20 11:00 Resp 10 L 09/01/20 11:00 BP 89/45 09/01/20 11:00 Pulse Ox 98 09/01/20 11:00 Intake & Output 08/31/20 09/01/20 09/01/20 18:59 06:59 18:59 Intake Total 1900 1000 517.899 Output Total 10 135 Balance 1900 990 382.899 Weight 101.7 kg Intake: IV 300 375 .9 @ 75mL/hr 300 375 Intake, IV Titration 1300 650 142.899 Amount Norepinephrine 4 mg In 142.899 Sodium Chloride 0.9% 250 ml @ 0.05 MCG/KG/MIN 18. 802 mls/hr IV .[id number] [facility] Rx#:[id number] Sodium Chloride 0.9% 1, 200 150 000 ml @ 75 mls/hr IV . [id number] [facility] Rx#:[id number] Sodium Chloride 0.9% 500 500 ml 500 ml @ 999 mls/hr IV .Q31M ONE Rx#:[id number] Sodium Chloride 0.9% 500 500 ml 500 ml @ 999 mls/hr IV .Q31M ONE Rx#:[id number] Sodium Chloride 0.9% 500 500 ml 500 ml @ 999 mls/hr IV .Q31M ONE Rx#:[id number] cefTRIAXone 1 gm In 100 Sodium Chloride 0.9% 50 ml @ 100 mls/hr IVPB Q24HR [facility] Rx#:[id number] Oral 600 50 Output: Urine 10 135 Other: Voiding Method Toilet Indwelling Catheter Indwelling Catheter Urinal # Voids 1 - Exam General appearance: The patient is alert, oriented, in no acute distress. HET: Head is normocephalic and atraumatic. Conjunctiva pink. Sclera anicteric. Neck: Supple without lymphadenopathy. Abdomen: Diffuse tenderness, Distended with bowel sounds. No guarding or rigidity. Extremities: Normal skin color and turgor. Bilateral lower extremity pitting edema. Neurological: No focal deficits. Alert and oriented 3. - Labs CBC & Chem 7: 09/01/20 04:50 09/01/20 14:37 Labs: Abnormal Lab Results - Last 24 Hours (Table) 09/01/20 09/01/20 09/01/20 Range/Units 01:25 04:50 04:50 WBC 23.0 H (3.8-10.6) k/uL RBC 4.02 L (4.30-5.90) m/uL Hgb 11.4 L (13.0-17.5) gm/dL Hct 32.8 L (39.0-53.0) % RDW 16.3 H (11.5-15.5) % Plt Count 84 L (150-450) k/uL PT 13.2 H (9.0-12.0) sec INR 1.3 H (<1.2) Sodium (137-145) mmol/L Chloride (98-107) mmol/L Carbon Dioxide (22-30) mmol/L BUN (9-20) mg/dL Creatinine (0.66-1.25) mg/dL Glucose (74-99) mg/dL POC Glucose (mg/dL) 120 H (75-99) mg/dL Calcium (8.4-10.2) mg/dL Total Bilirubin (0.2-1.3) mg/dL Total Protein (6.3-8.2) g/dL Albumin (3.5-5.0) g/dL 09/01/20 Range/Units 04:50 WBC (3.8-10.6) k/uL RBC (4.30-5.90) m/uL Hgb (13.0-17.5) gm/dL Hct (39.0-53.0) % RDW (11.5-15.5) % Plt Count (150-450) k/uL PT (9.0-12.0) sec INR (<1.2) Sodium 123 L (137-145) mmol/L Chloride 96 L (98-107) mmol/L Carbon Dioxide 17 L (22-30) mmol/L BUN 55 H (9-20) mg/dL Creatinine 3.73 H (0.66-1.25) mg/dL Glucose 108 H (74-99) mg/dL POC Glucose (mg/dL) (75-99) mg/dL Calcium 7.6 L (8.4-10.2) mg/dL Total Bilirubin 2.3 H (0.2-1.3) mg/dL Total Protein 5.3 L (6.3-8.2) g/dL Albumin 2.4 L (3.5-5.0) g/dL Microbiology - Last 24 Hours (Table) 08/30/20 14:45 Blood Culture - Preliminary Blood No Growth after 24 hours 08/30/20 14:30 Blood Culture - Preliminary Blood No Growth after 24 hours 08/30/20 15:15 Gram Stain - Preliminary Ascites Fluid Body Fluid Culture - Preliminary Assessment and Plan (1) Decompensated hepatic cirrhosis Narrative/Plan: Is is a 55-year-old male with a past medical history with significant alcohol abuse for over 40 years for which he states he was drinking a case of beer to a fifth a day. He now states that he has been sober for 1 year. He presented to the hospital due to abdominal distention, decreased oral intake and shortness of breath. A paracentesis was performed with 8.7 L of ascitic fluid removed. Suspicious is for decompensated alcoholic cirrhosis of the liver with new onset ascites. No prior history of encephalopathy or GI bleed. Patient's care somewhat complicated as he is hyponatremic with elevated creatinine. Nephrology is on consult. Patient is scheduled for repeat paracentesis today. Current Visit: Yes Status: Acute Code(s): K72.90 - HEPATIC FAILURE, UNSPECIFIED WITHOUT COMA; K74.60 - UNSPECIFIED CIRRHOSIS OF LIVER SNOMED Code(s): 676993571 (2) Abdominal ascites Current Visit: Yes Status: Acute Code(s): R18.8 - OTHER ASCITES SNOMED Code(s): 214966871 Plan: Supportive care Daily CBC and BMP Low-sodium diet Continue alcohol abstinence Nephrology on consult for recommendation of diuretics related to elevated creatinine and hyponatremia Patient is status post paracentesis, paracentesis ordered for today and would recommend albumin for greater than 5 L removed Continue lactulose titrate to have no more than 2-3 bowel movements a day Continue empiric ceftriaxone We'll continue to follow closely, and patient will need close follow-up with gastroenterology after discharge. Dr. Bradford I agree with the dictator's note, documented as a scribe by Monique Roman.
[2020-09-02] MEDS: MORPHINE SULFATE 4 MG/ML SYRINGE IV PRN ×4 (01:55→19:58)
[2020-09-02] MEDS: OCTREOTIDE 100 MCG/ML INJ SQ SCH ×3 (01:56→17:00)
[2020-09-02 05:33] LABS: Anisocytosis Slight; HCT 33.3 % (39.0-53.0); Hypochromasia Slight; MCHC 33.1 g/dL (31.0-37.0); MCV 84.4 fL (80.0-100.0); Mean Platelet Volume 9.2; Poikilocytosis Slight; RBC 3.94 m/uL (4.30-5.90); RDW 16.6 % (11.5-15.5); WBC 33.9 k/uL (3.8-10.6)
[2020-09-02 05:43] LABS: Albumin 2.5 g/dL (3.5-5.0); Calcium 7.4 mg/dL (8.4-10.2); Potassium 5.2 mmol/L (3.5-5.1); Total Bilirubin 2.6 mg/dL (0.2-1.3); Total Protein 5.2 g/dL (6.3-8.2)
[2020-09-02 05:57] LABS: Platelet Count 91 k/uL (150-450)
[2020-09-02 06:24] LABS: Basophils # (M) 0.34 k/uL (0-0.2); Eosinophils # (M) 0.34 k/uL (0-0.7); Lymphocytes # (M) 0.68 k/uL (1.0-4.8); Metamyelocytes % 5 %; Monocytes # (M) 12.54 k/uL (0-1.0); Myelocytes # (M) 1.36 k/uL (0); Myelocytes % 4 %; Neutrophils # (M) 16.61 k/uL (1.3-7.7); Neutrophils % (M) 49 %; Nucleated Red Blood Cells 0 /100 WBC (0-0); Promyelocytes # (M) 0.34 k/uL (0); Promyelocytes % 1 %; Total Cells Counted 100
[2020-09-02 06:25] LABS: Polychromasia Present; Toxic Vacuolation Present
[2020-09-02 06:30] LABS: Albumin, Fluid Source Ascites
[2020-09-02] MEDS: SODIUM CHLORIDE 0.9% 1,000 ML IV SCH ×3 (07:02→20:00)
--- NOTE | 2020-09-02 07:14 | XR ---
EXAMINATION TYPE: XR chest 1V portable DATE OF EXAM: 09/02/2020 Comparison: 09/01/2020 Clinical History: 55-year-old male continued ICU management Findings: Heart borderline in size. Mild interstitial prominence is unchanged. Some strandy right basilar atele ctasis. Mild patchy density at the peripheral left base persists. Prominent skin folds projecting ove r both hemithoraces. Impression: Strandy bibasilar atelectasis. Prominent skinfolds projecting over both sides of the chest. Continue d trace effusion suspected.
[2020-09-02] MEDS: NOREPINEPHRINE 4 MG in SODIUM CHLORIDE 0.9% 250 ML IV SCH ×3 (08:12→21:16)
[2020-09-02] MEDS ORDERED: HYDROCORTISONE SUCCINATE 100 MG/2 ML VIAL IV STA (08:13)
[2020-09-02] MEDS: PANTOPRAZOLE 40 MG/10 ML VIAL IVP SCH (08:19)
[2020-09-02] MEDS: ONDANSETRON 4 MG/2 ML VIAL IVP PRN ×2 (08:19→21:46)
[2020-09-02] MEDS: ALBUMIN HUMAN 25% 50 ML in EMPTY BAG 1 BAG IVPB SCH ×2 (09:06→19:58)
[2020-09-02] MEDS: MIDODRINE 5 MG TAB PO SCH ×3 (09:06→17:00)
--- NOTE | 2020-09-02 10:22 | P.PN ---
Subjective Progress Note Date: 09/02/20 Principal diagnosis: Liver failure 55-year-old male who apparently does not see a doctor on a regular basis. The patient presented to the emergency room on August 30 at 1045, with multiple complaints including chest pain, abdominal pain, abdominal distention, nausea, lower extremity edema, and shortness of breath. The patient is a recovering alcoholic and states she's not had anything to drink in one year. He does admit to smoking on a daily basis. He apparently does not take any medications on a regular basis although one point, he was on Abilify, and Zoloft. He has not been feeling well for a couple weeks or so prior to this admission. On this admission, he was seen by interventional radiology and had a high volume paracentesis. On August 30, 8 L was removed. He did have albumin replacement therapy. The patient came to the intensive care unit on August 31 for low blood pressure. An "A" was called last night and the patient was transferred down after one of the ICU nurses, Teresa Beckett, evaluated the patient. Currently, the patient is on O2 at 2 L by nasal cannula saline at 75 mL an hour, and norepinephrine at 13 mcg/m. We will ask interventional radiology to repeat the paracentesis. His transduced bladder pressure was 13. Currently, he bhaskar arently takes no medications at home. Progress note dated 09/02/2020. 55-year-old male who is a recovering alcoholic. The patient has alcoholic liver disease and liver cirrhosis. He came into the hospital on August 30, complaining of chest pain, abdominal pain, abdominal distention, nausea, april rtness of breath, and lower extremity edema. On August 30, he had a large- volume paracentesis, with 8.7 L removed. Yesterday, he also had another paracentesis abdominis, with 12 L removed. Currently, the patient remains on norepinephrine for hypotension at 21 mcg/m. He is getting saline at 75 mL an hour. The patient will get 1 dose of hydrocortisone today. It will be 100 mg, IV push. His cortisol level was 38. TSH was normal. In addition, we'll increase his fluids up to 150 mL an hour, and given 12-1/2 g of 25% albumin for a couple of days. He is hyponatremic. We believe he has hypovolemic hyponatremia. We'll hoping that the albumin and increased saline will expand his intravascular volume. Currently, his white count is 33.9, hemoglobin 11, hematocrit 33.3, and platelet count 91,000. His sodium is 123, potassium 5.2, chloride 95, CO2 17, anion gap 11, BUN and creatinine 58 and 3.60. His albumin is only 2.5. Objective - Vital Signs Vital signs: Vital Signs Temp 97.4 F L 09/02/20 08:00 Pulse 90 09/02/20 10:00 Resp 16 09/02/20 10:00 BP 100/54 09/02/20 10:00 Pulse Ox 99 09/02/20 10:00 Intake & Output 09/01/20 09/02/20 09/02/20 18:59 06:59 18:59 Intake Total 1426.842 903 7568.744 Output Total 359 690 520 Balance 1067.091 285 491.744 Weight 97.6 kg Intake: IV 825 975 625 .9 @ 75mL/hr 675 825 75 Albumin Human 25% 50 ml 150 150 50 In Empty Bag 1 bag @ 50 mls/hr IVPB ONCE ONE Rx#: [id number] Sodium Chloride 0.9% 1, 450 000 ml @ 150 mls/hr IV . Q6H40M [facility] Rx#:[id number] cefTRIAXone 1 gm In 50 Sodium Chloride 0.9% 50 ml @ 100 mls/hr IVPB Q24HR [facility] Rx#:[id number] Intake, IV Titration 601.091 386.744 Amount Norepinephrine 4 mg In 601.091 386.744 Sodium Chloride 0.9% 250 ml @ 0.05 MCG/KG/MIN 18. 802 mls/hr IV .[id number] [facility] Rx#:[id number] Output: Urine 359 690 520 Other: Voiding Method Indwelling Catheter Indwelling Catheter - Exam No acute distress, oriented 3. Patient on nasal O2 at 2 L/m. HEENT examination is grossly unremarkable. Mucous membranes are moist. No oral lesions. Neck supple. Full range of motion. No adenopathy thyromegaly or neck vein distention. Cardiovascular examination reveals regular rhythm rate. S1-S2 normal. No S3 or S4. No discernible murmur noted. Heart sounds are distant. Heart rate 90 bpm. Lungs reveal clear breath sounds. Her sounds are equal bilaterally. No adventitious lung sounds including wheezes rhonchi or crackles. Abdomen distended, but less so than yesterday. Bowel sounds are not noted. No tenderness. No mass. Extremities are intact. No cyanosis or clubbing. There is 1+ edema. It is pitting. Skin is without rash or lesion. Neurologic examination is brief but nonfocal. - Labs CBC & Chem 7: 09/02/20 05:14 09/02/20 05:14 Labs: Abnormal Lab Results - Last 24 Hours (Table) 09/01/20 09/01/20 09/01/20 Range/Units 14:37 16:00 19:57 WBC (3.8-10.6) k/uL RBC (4.30-5.90) m/uL Hgb (13.0-17.5) gm/dL Hct (39.0-53.0) % RDW (11.5-15.5) % Plt Count (150-450) k/uL Neutrophils # (Manual) (1.3-7.7) k/uL Lymphocytes # (Manual) (1.0-4.8) k/uL Monocytes # (Manual) (0-1.0) k/uL Basophils # (Manual) (0-0.2) k/uL Metamyelocytes # (Man) (0) k/uL Myelocytes # (Manual) (0) k/uL Promyelocytes # (Man) (0) k/uL Sodium 124 L 123 L (137-145) mmol/L Potassium (3.5-5.1) mmol/L Chloride (98-107) mmol/L Carbon Dioxide (22-30) mmol/L BUN (9-20) mg/dL Creatinine (0.66-1.25) mg/dL Glucose (74-99) mg/dL Calcium (8.4-10.2) mg/dL Total Bilirubin (0.2-1.3) mg/dL Total Protein (6.3-8.2) g/dL Albumin (3.5-5.0) g/dL Urine Protein 2+ H (Negative) Urine Blood Large H (Negative) Urine Bilirubin 1+ H (Negative) Ur Leukocyte Esterase Large H (Negative) Urine RBC >182 H (0-5) /hpf Urine WBC 111 H (0-5) /hpf Urine Bacteria Few H (None) /hpf Hyaline Casts 148 H (0-2) /lpf Urine Mucus Few H (None) /hpf Urine Sperm Moderate H (None) /hpf 09/02/20 09/02/20 Range/Units 05:14 05:14 WBC 33.9 H (3.8-10.6) k/uL RBC 3.94 L (4.30-5.90) m/uL Hgb 11.0 L (13.0-17.5) gm/dL Hct 33.3 L (39.0-53.0) % RDW 16.6 H (11.5-15.5) % Plt Count 91 L (150-450) k/uL Neutrophils # (Manual) 16.61 H (1.3-7.7) k/uL Lymphocytes # (Manual) 0.68 L (1.0-4.8) k/uL Monocytes # (Manual) 12.54 H (0-1.0) k/uL Basophils # (Manual) 0.34 H (0-0.2) k/uL Metamyelocytes # (Man) 1.70 H (0) k/uL Myelocytes # (Manual) 1.36 H (0) k/uL Promyelocytes # (Man) 0.34 H (0) k/uL Sodium 123 L (137-145) mmol/L Potassium 5.2 H (3.5-5.1) mmol/L Chloride 95 L (98-107) mmol/L Carbon Dioxide 17 L (22-30) mmol/L BUN 58 H (9-20) mg/dL Creatinine 3.60 H (0.66-1.25) mg/dL Glucose 107 H (74-99) mg/dL Calcium 7.4 L (8.4-10.2) mg/dL Total Bilirubin 2.6 H (0.2-1.3) mg/dL Total Protein 5.2 L (6.3-8.2) g/dL Albumin 2.5 L (3.5-5.0) g/dL Urine Protein (Negative) Urine Blood (Negative) Urine Bilirubin (Negative) Ur Leukocyte Esterase (Negative) Urine RBC (0-5) /hpf Urine WBC (0-5) /hpf Urine Bacteria (None) /hpf Hyaline Casts (0-2) /lpf Urine Mucus (None) /hpf Urine Sperm (None) /hpf Microbiology - Last 24 Hours (Table) 08/30/20 15:15 Anaerobic Culture - Preliminary Ascites Fluid 08/30/20 14:30 Blood Culture - Preliminary Blood No Growth after 48 hours 08/30/20 14:45 Blood Culture - Preliminary Blood No Growth after 48 hours 08/30/20 15:15 Gram Stain - Preliminary Ascites Fluid Body Fluid Culture - Preliminary Assessment and Plan Assessment: Chronic alcoholic liver disease with alcoholic cirrhosis. Previous history of heavy alcohol consumption, although patient states he has not had anything to drink in one year. Severe abdominal ascites, status post high volume paracentesis on 08/30/2020. Repeat paracentesis abdominis, on 09/01/2020, with 12 L being removed. Anemia of chronic disease. 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 Mild alcohol induced coagulopathy. Hypovolemic hyponatremia. Chronic kidney disease. Non-anion gap metabolic acidosis. Hyperbilirubinemia. Chronic constipation. Plan: Plan dated 09/02/2020. Currently, the patient remains on norepinephrine at 21 mcg/m. His saline IV will be increased from 75 mL an hour to 150 mL an hour. His TSH is normal. His cortisol level my opinion is a bit low for somebody is so critically ill. 100 mg of hydrocortisone IV push, and the nurse will observe his blood pressure to see if it changes. He had a large-volume recent cases done yesterday. We'll give him some albumin today. We will give him: Half grams at 25% albumin for a couple of days. We hope to move his interstitial edema and abdominal cavity edema into the vascular space, and expand it. His overall prognosis remains guarded. He has end-stage liver disease. Medications are reviewed. Prognosis is very guarded. Time with Patient: Greater than 30
--- NOTE | 2020-09-02 10:35 | CDI ---
Documentation Clarification Form Date: 09/02/2020 1032 CDS: Jennifer Lizarraga RN, CCDS Admit Date: 08/30/2020 1347 Patient Name: Marty Hansen ATTENTION: The Clinical Documentation Specialists (CDI) and [facility] Coding Staff appreciate your assistance in clarifying documentation. Please respond to the clarification below the line at the bottom and electronically sign. The CDI & [facility] Coding staff will review the response and follow-up if needed. Please note: Queries are made part of the Legal Health Record. If you have any questions, please contact the author of this message via ITS. Dr. Lamar CKD is documented in the H&P and Pulmonary consult and requires further specificity. History/Risk Factors: 05/10/19 Patients Historical BUN/CR/GFR: 86/>90 Chronic ETOH liver disease with cirrhosis and ascites, Clinical Indicators: 08/30-09/02 Current BUN: 38/48/55/58 CR: 1.96/2.84/3.73/3.6 GFR: 37/24/17/18 09/01 Nephrology Consult: "The patient developed significant hypotension after paracentesis which was done on 08/30/2020.He had about 8 L of fluid removed. The patient was subsequently transferred to the ICU and has been maintained on Levophed. Currently, Levophed is at about 13 mcg. Acute kidney injury, currently nonoliguric. Urine output is borderline. It is decreasing possible hepatorenal syndrome." 09/01 Pulmonary Consult: "Chronic kidney disease." 08/30-08/31 H&P and Attending Progress note: "Acute kidney injury with possible underlying CKD/hepatorenal syndrome " Serum creatinine was 1.96 on initial admission. It has increased to 3.73 today. Urine output at about 30 mL an hour." Treatment: Levophed Gtt titrate for B/P Albumin 50 ML x 4 bags IVPB OT 08/30-08/31 Lasix 40 mg IVP Q 12 hrs. 08/31 500 CC 0.9% NS IVF Bolus x 3 followed by 150 ml/hr 09/01 Midodrine 10 mg PO AC TID 09/01 Albumin 50ml IVPB 09/01 Lasix 40 mg IVP x 1 dose 09/02 Solu-Cortef 100 mg IVP x 1 dose 09/02 Albumin 50 ml IVPB x 1 dose In order to capture the severity of condition, please clarify the stage of the CKD, if known: CKD Stage 1 (GFR > 90) CKD Stage 2 (GFR 60-89) CKD Stage 3a (GFR 45-59) CKD Stage 3b (GFR 30-44) CKD Stage 4 (GFR 15-29) CKD Stage 5 (GFR <15) ESRD Other, please specify Unable to determine Please continue to document in your progress notes and discharge summary in order to capture severity of illness and risk of mortality. Include clinical findings that support your diagnosis. MTDD
[2020-09-02] MEDS ORDERED: TOLVAPTAN 15 MG 1/2 TABLET PO ONE (10:45)
--- NOTE | 2020-09-02 11:09 | CDI ---
Documentation Clarification Form Date: 09/02/2020 1106 CDS: Jennifer Lizarraga RN, CCDS Admit Date: 08/30/2020 0147 Patient Name: Marty Hansen ATTENTION: The Clinical Documentation Specialists (CDI) and [facility] Coding Staff appreciate your assistance in clarifying documentation. Please respond to the clarification below the line at the bottom and electronically sign. The CDI & [facility] Coding staff will review the response and follow-up if needed. Please note: Queries are made part of the Legal Health Record. If you have any questions, please contact the author of this message via ITS. Dr. Prado The patient has been noted to be on vasopressors, receiving IVF boluses, and volume expanders, s/p 2 paracentesis with 20L of fluid removed. Patient history/risk factors: ETOH Liver Cirrhosis with ascites, hepatorenal syndrome, [place] on CKD d/t hepatorenal syndrome, hypovolemia, thrombocytopenia Clinical Indicators: 09/01 Nephrology Consult: "The patient developed significant hypotension after paracentesis which was done on 08/30/2020. He had about 8 L of fluid removed. The patient was subsequently transferred to the ICU and has been maintained on Levophed. Currently, Levophed is at about 13 mcg. The patient received a couple of liters of normal saline bolus yesterday when he was hypotensive and is currently maintained on normal saline at 75 mL an hour. Acute kidney injury, currently nonoliguric. Urine output is borderline. It is decreasing possible hepatorenal syndrome. I will maintain patient on midodrine. He will be given albumin and we will also add Sandostatin." 09/01 Paracentesis: 12L straw colored fluid removed 08/31 2639 Vitals: temp 97.4, HR 91, RR 19, B/P 77/41, Spo2 99% 2L Treatment: 09/01 Levophed Gtt titrate for B/P 08/30Albumin 50 ML x 4 bags IVPB OT 08/30-08/31 Lasix 40 mg IVP Q 12 hrs. 08/31 500 CC 0.9% NS IVF Bolus x 3 followed by 150 ml/hr 09/01 Midodrine 10 mg PO AC TID 09/01 Albumin 50ml IVPB 09/01 Lasix 40 mg IVP x 1 dose 1/15 Solu-Cortef 100 mg IVP x 1 dose 09/02 Albumin 50 ml IVPB x 1 dose 09/01 Sandostatin 100mcg SQ Q 8 hrs. In your professional opinion, can you please specify a diagnosis for the above noted treatments, if known? Hypovolemic Shock Cause Other, please specify Unable to determine Please continue to document in your progress notes and discharge summary in order to capture severity of illness and risk of mortality. Include clinical findings that support your diagnosis. Hypovolemic Shock MTDD
[2020-09-02] MEDS: LACTULOSE 20 GM/30 ML CUP PO SCH (12:32)
[2020-09-02] MEDS: polyethylene glycoL 3350 17 GM POWD.PACK PO SCH (12:38)
--- NOTE | 2020-09-02 13:03 | P.PN ---
Subjective Progress Note Date: 09/02/20 Principal diagnosis: Abdominal distention, decreased oral intake, Ascites Patient was seen and examined sitting up in his recliner in the ICU. States he has back pain. He denies any chest pain or shortness of breath. States he has had some relief in his abdomen. He is refusing to take his lactulose, states that it makes him feel nauseous and he will vomit it up. He states he has not had a bowel movement in one month. Nephrology following patient closely. Patient was started on midodrine and Sandostatin. Patient is status post 2 large-volume paracentesis, is status post albumin. Patient now has albumin ordered every 12 hours per ICU management. He also remains on levophed. No acute changes through the night. Objective - Vital Signs Vital signs: Vital Signs Temp 97.5 F L 09/02/20 12:00 Pulse 82 09/02/20 12:45 Resp 17 09/02/20 12:45 BP 96/63 09/02/20 12:45 Pulse Ox 100 09/02/20 12:45 Intake & Output 09/01/20 09/02/20 09/02/20 18:59 06:59 18:59 Intake Total 1426.396 062 0991.697 Output Total 359 690 795 Balance 1067.091 285 739.697 Weight 97.6 kg Intake: IV 153 874 3204 .9 @ 75mL/hr 675 825 75 Albumin Human 25% 50 ml 150 150 50 In Empty Bag 1 bag @ 50 mls/hr IVPB ONCE ONE Rx#: [id number] Sodium Chloride 0.9% 1, 900 000 ml @ 150 mls/hr IV . Q6H40M [facility] Rx#:[id number] cefTRIAXone 1 gm In 50 Sodium Chloride 0.9% 50 ml @ 100 mls/hr IVPB Q24HR [facility] Rx#:[id number] Intake, IV Titration 601.091 459.697 Amount Norepinephrine 4 mg In 601.091 459.697 Sodium Chloride 0.9% 250 ml @ 0.05 MCG/KG/MIN 18. 802 mls/hr IV .[id number] [facility] Rx#:[id number] Output: Urine 359 690 795 Other: Voiding Method Indwelling Catheter Indwelling Catheter - Exam General appearance: The patient is alert, oriented, in no acute distress. HET: Head is normocephalic and atraumatic. Conjunctiva pink. Sclera anicteric. Neck: Supple without lymphadenopathy. Abdomen: Nontender, Distended, but improved with bowel sounds. No guarding or rigidity. Extremities: Normal skin color and turgor. Bilateral lower extremity pitting edema. Neurological: No focal deficits. Alert and oriented 3. - Labs CBC & Chem 7: 09/02/20 05:14 09/02/20 05:14 Labs: Abnormal Lab Results - Last 24 Hours (Table) 09/01/20 09/01/20 09/01/20 Range/Units 14:37 16:00 19:57 WBC (3.8-10.6) k/uL RBC (4.30-5.90) m/uL Hgb (13.0-17.5) gm/dL Hct (39.0-53.0) % RDW (11.5-15.5) % Plt Count (150-450) k/uL Neutrophils # (Manual) (1.3-7.7) k/uL Lymphocytes # (Manual) (1.0-4.8) k/uL Monocytes # (Manual) (0-1.0) k/uL Basophils # (Manual) (0-0.2) k/uL Metamyelocytes # (Man) (0) k/uL Myelocytes # (Manual) (0) k/uL Promyelocytes # (Man) (0) k/uL Sodium 124 L 123 L (137-145) mmol/L Potassium (3.5-5.1) mmol/L Chloride (98-107) mmol/L Carbon Dioxide (22-30) mmol/L BUN (9-20) mg/dL Creatinine (0.66-1.25) mg/dL Glucose (74-99) mg/dL Calcium (8.4-10.2) mg/dL Total Bilirubin (0.2-1.3) mg/dL Total Protein (6.3-8.2) g/dL Albumin (3.5-5.0) g/dL Urine Protein 2+ H (Negative) Urine Blood Large H (Negative) Urine Bilirubin 1+ H (Negative) Ur Leukocyte Esterase Large H (Negative) Urine RBC >182 H (0-5) /hpf Urine WBC 111 H (0-5) /hpf Urine Bacteria Few H (None) /hpf Hyaline Casts 148 H (0-2) /lpf Urine Mucus Few H (None) /hpf Urine Sperm Moderate H (None) /hpf 09/02/20 09/02/20 Range/Units 05:14 05:14 WBC 33.9 H (3.8-10.6) k/uL RBC 3.94 L (4.30-5.90) m/uL Hgb 11.0 L (13.0-17.5) gm/dL Hct 33.3 L (39.0-53.0) % RDW 16.6 H (11.5-15.5) % Plt Count 91 L (150-450) k/uL Neutrophils # (Manual) 16.61 H (1.3-7.7) k/uL Lymphocytes # (Manual) 0.68 L (1.0-4.8) k/uL Monocytes # (Manual) 12.54 H (0-1.0) k/uL Basophils # (Manual) 0.34 H (0-0.2) k/uL Metamyelocytes # (Man) 1.70 H (0) k/uL Myelocytes # (Manual) 1.36 H (0) k/uL Promyelocytes # (Man) 0.34 H (0) k/uL Sodium 123 L (137-145) mmol/L Potassium 5.2 H (3.5-5.1) mmol/L Chloride 95 L (98-107) mmol/L Carbon Dioxide 17 L (22-30) mmol/L BUN 58 H (9-20) mg/dL Creatinine 3.60 H (0.66-1.25) mg/dL Glucose 107 H (74-99) mg/dL Calcium 7.4 L (8.4-10.2) mg/dL Total Bilirubin 2.6 H (0.2-1.3) mg/dL Total Protein 5.2 L (6.3-8.2) g/dL Albumin 2.5 L (3.5-5.0) g/dL Urine Protein (Negative) Urine Blood (Negative) Urine Bilirubin (Negative) Ur Leukocyte Esterase (Negative) Urine RBC (0-5) /hpf Urine WBC (0-5) /hpf Urine Bacteria (None) /hpf Hyaline Casts (0-2) /lpf Urine Mucus (None) /hpf Urine Sperm (None) /hpf Microbiology - Last 24 Hours (Table) 08/30/20 15:15 Anaerobic Culture - Preliminary Ascites Fluid 08/30/20 14:30 Blood Culture - Preliminary Blood No Growth after 48 hours 08/30/20 14:45 Blood Culture - Preliminary Blood No Growth after 48 hours 08/30/20 15:15 Gram Stain - Preliminary Ascites Fluid Body Fluid Culture - Preliminary Assessment and Plan (1) Decompensated hepatic cirrhosis Narrative/Plan: This is a 55-year-old male with a past medical history with significant alcohol abuse for over 40 years for which he states he was drinking a case of beer to a fifth a day. He now states that he has been sober for 1 year. He presented to the hospital due to abdominal distention, decreased oral intake and shortness of breath. A paracentesis was performed with 8.7 L of ascitic fluid removed. Suspicious is for decompensated alcoholic cirrhosis of the liver with new onset ascites. No prior history of encephalopathy or GI bleed. Patient's care somewhat complicated as he is hyponatremic with elevated creatinine. Nephrology is on consult. Patient status post 2 large volume paracentesis. He is status post albumin. Current Visit: Yes Status: Acute Code(s): K72.90 - HEPATIC FAILURE, U NSPECIFIED WITHOUT COMA; K74.60 - UNSPECIFIED CIRRHOSIS OF LIVER SNOMED Code(s): 427671837 (2) Abdominal ascites Narrative/Plan: Nephrology on consult following patient closely. Appreciate recommendations from nephrology for diuretics. Current Visit: Yes Status: Acute Code(s): R18.8 - OTHER ASCITES SNOMED Code(s): 220106455 Plan: Supportive care Daily CBC and BMP Low-sodium diet Continue alcohol abstinence Nephrology on consult for recommendation of diuretics related to elevated creatinine and hyponatremia Patient is status two large volume paracentesis May discontinue lactulose as patient is refusing, ammonia levels have been normal Miralax daily, can increase to twice a day for constipation Continue empiric ceftriaxone Very guarded prognosis, may need to consider transfer to tertiary center for higher level of care We'll continue to follow closely, and patient will need close follow-up with gastroenterology after discharge. Dr. Bradford I agree with the dictator's note, documented as a scribe by Monique Roman.
--- NOTE | 2020-09-02 14:53 | PN ---
PROGRESS NOTE Patient is seen for followup for hyponatremia and acute kidney injury. The patient remains on Levophed. He has been receiving albumin after the paracentesis yesterday where he had about 12 L of fluid taken out yesterday. Urine output has been at about 100 to 130 mL an hour. Levophed is down. IV fluids were increased to 150 ml/hour. The patient's sodium staying at about 123. It has not worsened with the saline. Urine osmolality was 346. PHYSICAL EXAMINATION: On examination today, patient is lying in bed. He is comfortable. Blood pressure was 101/63. He is afebrile. EXAMINATION OF THE HEART: S1, S2. EXAMINATION OF THE LUNGS: Bilateral breath sounds are heard. Decreased breath sounds at bases. Abdomen is soft, nontender. Some ascites noted again. Examination of the lower extremities shows edema 2+ bilaterally. [employer] exam grossly intact. LABS: Labs show hemoglobin 11.0, sodium of 123, potassium 5.2, CO2 is 17, chloride 95, BUN 58, creatinine 3.6. ASSESSMENT: 1. Acute kidney injury, acute tubular necrosis versus hepatorenal syndrome currently maintained on treatment for hepatorenal syndrome. The patient has been quite hypotensive. He is on Levophed. The dose of which has been decreasing. The patient is also maintained on IV fluids which we can continue as we are able to decrease the Levophed. As long as the serum sodium does not worsen, we can continue with saline for now. A UA showed significant protein, blood as well as cells. It does not look like a urine culture was sent. 2. Pyuria, rule out urinary tract infection. Check urine culture. The patient is maintained on Rocephin. 3. Hyponatremia. Patient is currently hypervolemic. However, he has liver cirrhosis and the serum sodium has not worsened with the saline. Therefore, I will continue with the saline for now, but I will give him a dose of tolvaptan. Liver enzymes are currently stable and patient does not have significant hyperbilirubinemia. We will try 1 dose today. 4. Pyuria, rule out urinary tract infection. Check urine culture. 5. Ascites, pulmonary hypertension, most likely secondary to liver cirrhosis, which is secondary to EtOH, currently being followed by GI. 6. Hypotension with normal cortisol level, maintained on pressors currently with decreasing dose of Levophed. May continue with the saline for now. Chest x-ray from today does not show any worsening of the lungs. PLAN: May continue with the fluids. Tolvaptan p.o. x1. Continue the Sandostatin, midodrine and albumin and repeat labs in a.m. Continue to avoid nephrotoxic agents. MMRHIANNONL / ZBIGNIEWN: [id number] /
[2020-09-02] MEDS: PANTOPRAZOLE 40 MG TABLET PO SCH (17:00)
[2020-09-03] MEDS: OCTREOTIDE 100 MCG/ML INJ SQ SCH ×4 (00:24→23:23)
[2020-09-03] MEDS: SODIUM CHLORIDE 0.9% 1,000 ML IV SCH ×3 (04:28→17:24)
[2020-09-03] MEDS: ONDANSETRON 4 MG/2 ML VIAL IVP PRN ×2 (05:05→22:15)
[2020-09-03] MEDS: MORPHINE SULFATE 4 MG/ML SYRINGE IV PRN ×4 (05:05→23:22)
[2020-09-03 05:15] LABS: Albumin 1.7 g/dL (3.5-5.0); Potassium 3.8 mmol/L (3.5-5.1); Total Bilirubin 2.6 mg/dL (0.2-1.3); Total Protein 3.8 g/dL (6.3-8.2)
[2020-09-03 05:29] LABS: Calcium 5.9 mg/dL (8.4-10.2)
[2020-09-03 05:53] LABS: Anisocytosis Slight; HCT 23.8 % (39.0-53.0); Hypochromasia Slight; MCH 28.2 pg (25.0-35.0); MCHC 33.3 g/dL (31.0-37.0); MCV 84.7 fL (80.0-100.0); Mean Platelet Volume 11.4; Poikilocytosis Slight; RBC 2.81 m/uL (4.30-5.90); RDW 16.7 % (11.5-15.5)
[2020-09-03 06:07] LABS: HGB 7.9 gm/dL (13.0-17.5); Platelet Count 73 k/uL (150-450)
[2020-09-03 06:41] LABS: Metamyelocytes % 2 %; Myelocytes % 10 %; Neutrophils % (M) 51 %
[2020-09-03] MEDS: PANTOPRAZOLE 40 MG TABLET PO SCH ×2 (06:41→17:24)
[2020-09-03] MEDS: MIDODRINE 5 MG TAB PO SCH ×3 (06:41→17:19)
[2020-09-03 06:45] LABS: Blast Cells # (M) 1.12 k/uL (0); Metamyelocytes # (M) 1.12 k/uL (0); Monocytes # (M) 17.36 k/uL (0-1.0); Neutrophils # (M) 28.56 k/uL (1.3-7.7); Nucleated Red Blood Cells 1 /100 WBC (0-0); Total Cells Counted 200; Toxic Vacuolation Present
--- NOTE | 2020-09-03 07:25 | XR ---
EXAMINATION TYPE: XR chest 1V portable DATE OF EXAM: 09/03/2020 COMPARISON: Chest x-ray 09/02/2020 HISTORY: Abnormal chest x-ray, assess lungs TECHNIQUE: Single frontal view of the chest is obtained. FINDINGS: Lung volumes are low. Patient is rotated. Subsegmental basilar atelectatic changes are aga in noted. No evident pneumothorax or pleural effusion. Cardiac mediastinal silhouette is stable, retr ocardiac density likely represents hiatal hernia. IMPRESSION: Expiratory rotated exam. Subsegmental basilar atelectatic changes. Hiatal hernia. Correl ate to exclude pneumonia. Follow-up PA and lateral chest x-ray may be of benefit.
[2020-09-03] MEDS: ALBUMIN HUMAN 25% 50 ML in EMPTY BAG 1 BAG IVPB SCH ×2 (08:02→20:00)
[2020-09-03] MEDS: polyethylene glycoL 3350 17 GM POWD.PACK PO SCH (08:03)
--- NOTE | 2020-09-03 08:27 | P.PN ---
Subjective Patient is seen in follow-up for acute kidney injury and hyponatremia. He received a dose of Samsca September 02. Sodium level 130 today. Renal function better. Nonoliguric. Maintained on about 6 mics of Levophed. Also on normal saline at 1 50 mL an hour. Quite lethargic. Not a reliable historian. Vital signs are stable. On Levophed. General: On nasal cannula. HEENT: Head exam is unremarkable. Neck is without jugular venous distension. LUNGS: Breath sounds decreased. HEART: Rate and Rhythm are regular. ABDOMEN: Soft, nontender. EXTREMITITES: 1+ edema. Objective - Vital Signs Vital signs: Vital Signs Temp 97.8 F 09/03/20 04:00 Pulse 85 09/03/20 07:00 Resp 15 09/03/20 07:00 BP 103/56 09/03/20 07:00 Pulse Ox 98 09/03/20 07:00 Intake & Output 09/02/20 09/03/20 09/03/20 18:59 06:59 18:59 Intake Total 2373.048 2504.859 150 Output Total 1810 1520 100 Balance 563.048 984.859 50 Weight 98.2 kg Intake: IV 1825 1800 150 .9 @ 75mL/hr 75 Albumin Human 25% 50 ml 50 In Empty Bag 1 bag @ 50 mls/hr IVPB ONCE ONE Rx#: [id number] Sodium Chloride 0.9% 1, 1650 1800 150 000 ml @ 150 mls/hr IV . Q6H40M [facility] Rx#:[id number] cefTRIAXone 1 gm In 50 Sodium Chloride 0.9% 50 ml @ 100 mls/hr IVPB Q24HR [facility] Rx#:[id number] Intake, IV Titration 548.048 224.859 Amount Albumin Human 25% 50 ml 50 In Empty Bag 1 bag @ 50 mls/hr IVPB Q12HR [facility] Rx# :[id number] Norepinephrine 4 mg In 548.048 174.859 Sodium Chloride 0.9% 250 ml @ 0.05 MCG/KG/MIN 18. 802 mls/hr IV .[id number] [facility] Rx#:[id number] Oral 480 Output: Urine 1810 1520 100 Other: Voiding Method Indwelling Catheter Indwelling Catheter - Labs CBC & Chem 7: 09/03/20 05:35 09/03/20 04:23 Labs: Abnormal Lab Results - Last 24 Hours (Table) 09/03/20 09/03/20 Range/Units 04:23 05:35 WBC 56.0 H* (3.8-10.6) k/uL RBC 2.81 L (4.30-5.90) m/uL Hgb 7.9 L D (13.0-17.5) gm/dL Hct 23.8 L (39.0-53.0) % RDW 16.7 H (11.5-15.5) % Plt Count 73 L (150-450) k/uL Blast Cells % 2 H* % Neutrophils # (Manual) 28.56 H (1.3-7.7) k/uL Monocytes # (Manual) 17.36 H (0-1.0) k/uL Metamyelocytes # (Man) 1.12 H (0) k/uL Myelocytes # (Manual) 5.60 H (0) k/uL Blast Cells # (Man) 1.12 H (0) k/uL Nucleated RBCs 1 H (0-0) /100 WBC Sodium 130 L (137-145) mmol/L Chloride 108 H (98-107) mmol/L Carbon Dioxide 18 L (22-30) mmol/L BUN 46 H (9-20) mg/dL Creatinine 2.41 H (0.66-1.25) mg/dL Calcium 5.9 L* (8.4-10.2) mg/dL Total Bilirubin 2.6 H (0.2-1.3) mg/dL AST 64 H (17-59) U/L Total Protein 3.8 L (6.3-8.2) g/dL Albumin 1.7 L (3.5-5.0) g/dL Microbiology - Last 24 Hours (Table) 08/30/20 14:30 Blood Culture - Preliminary Blood No Growth after 72 hours 08/30/20 14:45 Blood Culture - Preliminary Blood No Growth after 72 hours 08/30/20 15:15 Gram Stain - Preliminary Ascites Fluid Body Fluid Culture - Preliminary Assessment and Plan Plan: Assessment: 1. Acute kidney injury secondary to ATN secondary to hypotension/shock. Also concern for hepatorenal syndrome. Renal function better. Creatinine 2.41 today. 2. Hypervolemic hyponatremia. Status post sent for September 02. Improved. 3. Ascites secondary to liver cirrhosis. Status post paracentesis on August 30 to September 01 with total 20 L removed. 4. Hypocalcemia secondary to acute kidney injury. Corrected calcium near 7.6. 5. Metabolic acidosis secondary to acute kidney injury and IV fluids. Plan: Maintain IV albumin 25 g twice daily. Decreased to normal saline to 75 mL an hour. Wean vasopressors. 1 g IV calcium gluconate. Maintain midodrine. Continue to monitor renal function and urine output.
[2020-09-03] MEDS ORDERED: CALCIUM GLUCONATE 1 GM in SODIUM CHLORIDE 0.9% 100 ML IVPB ONE (09:00)
[2020-09-03] MEDS: NOREPINEPHRINE 4 MG in SODIUM CHLORIDE 0.9% 250 ML IV SCH ×2 (09:11→21:50)
--- NOTE | 2020-09-03 09:59 | P.PN ---
Subjective Progress Note Date: 09/01/20 Principal diagnosis: Ascites Patient is a 55-year-old male with a known history of alcohol abuse currently not drinking, everyday smoker, blindness and chronic back pain presents ER with complaints of shortness of breath, abdominal pain and increased girth. Patient was drinking heavily and has been abstinent for the past 1 year. Denied any complaints of fever or chills. No chest pain. No recent illnesses. Patient is also complaining of increased lower action to swelling. Chest x-ray showed suspected bilateral pleural effusions and associated atelectasis, correlate to exclude pneumonia. Hyperlipidemia. Ultrasound of the abdomen showed moderate to large abdominal ascites throughout the abdomen. Hepatomegaly with cirrhotic morphology of the liver. No focal lesion identified. No gallstones or biliary ductal dilatation. Severe splenomegaly. Laboratory data showed no obesity 19.9, hemoglobin 15.0 and platelets 126 INR 1.3 Sodium 126, potassium 5.2, chloride 93, BUN 38 and creatinine 1.96 ProBNP 3480, all within 3.4 Patient is status post paracentesis with 8.9 L of fluid removal. Patient was given a dose of ceftriaxone in the ER. Ascites fluid analysis showed 275 nucleated cells with 14 polynuclear WBCs. 08/31/2020 Patient is currently lying in the bed. Complains of generalized weakness and dizzy. SBP in the 80s. Patient was given 500 cc of normal saline fluid bolus. Patient has been afebrile. No complaints of chest pain. Shortness of breath is better. Laboratory data showed WBC 15.0 improved from 9.9 yesterday. Hemoglobin 11.4 and platelets 99 Sodium level dropped to 121 and chloride 91, BUN 48 and increase it to creatinine 2.84. Lasix has been discontinued. Patient has been afebrile. No nausea or vomiting. Started on low-salt diet. GI is following. 09/01/2020 Patient was transferred to MICU last night due to hypotension with blood pressure not improving with fluid boluses. Patient is awake alert and oriented but feels very weak. Ultrasound of the abdomen showed moderate to large ascites and repeat paracentesis was ordered. Patient is undergoing to be paracentesis now. Monitor blood pressure closely and GI is following. Current medications reviewed. Objective - Vital Signs Vital signs: Vital Signs Temp 98 F 09/01/20 16:00 Pulse 92 09/01/20 17:00 Resp 8 L 09/01/20 17:00 BP 94/54 09/01/20 17:00 Pulse Ox 99 09/01/20 17:00 Intake & Output 08/31/20 09/01/20 09/01/20 18:59 06:59 18:59 Intake Total 1900 1000 1326.091 Output Total 10 269 Balance 2574 237 9207.091 Weight 101.7 kg Intake: IV 300 725 .9 @ 75mL/hr 300 675 Albumin Human 25% 50 ml 50 In Empty Bag 1 bag @ 50 mls/hr IVPB ONCE ONE Rx#: [id number] Intake, IV Titration 1300 650 601.091 Amount Norepinephrine 4 mg In 601.091 Sodium Chloride 0.9% 250 ml @ 0.05 MCG/KG/MIN 18. 802 mls/hr IV .[id number] [facility] Rx#:[id number] Sodium Chloride 0.9% 1, 200 150 000 ml @ 75 mls/hr IV . [id number] [facility] Rx#:[id number] Sodium Chloride 0.9% 500 500 ml 500 ml @ 999 mls/hr IV .Q31M [facility] Rx#:[id number] Sodium Chloride 0.9% 500 500 ml 500 ml @ 999 mls/hr IV .Q31M [facility] Rx#:[id number] Sodium Chloride 0.9% 500 500 ml 500 ml @ 999 mls/hr IV .Q31M [facility] Rx#:[id number] cefTRIAXone 1 gm In 100 Sodium Chloride 0.9% 50 ml @ 100 mls/hr IVPB Q24HR [facility] Rx#:[id number] Oral 600 50 Output: Urine 10 269 Other: Voiding Method Toilet Indwelling Catheter Indwelling Catheter Urinal # Voids 1 - Exam PHYSICAL EXAMINATION: Patient is lying in the bed comfortably, no acute distress, awake alert and oriented.. HEENT: Normocephalic. Neck is supple. Pupils reactive. Nostrils clear. Oral cavity is moist. Ears reveal no drainage. Neck reveals no JVD, carotid bruits, or thyromegaly. CHEST EXAMINATION: Trachea is central. Symmetrical expansion. Bibasilar diminished air entry, no wheezing.. CARDIAC: Normal S1, S2 with no gallops. No murmurs ABDOMEN: Soft. Severely distended with ascites and fluid thrill, nontender. Bowel sounds present. Organomegaly could not be assessed. No abdominal bruits. Extremities: 3+ bilateral pedal edema. No clubbing or cyanosis Neurologically awake, alert, oriented x3 with well-coordinated movements. No focal deficits noted Skin: No rash or skin lesions. Psychiatric: Coperative. Nonsuicidal Musculoskeletal: No joint swelling or deformity. Normal range of motion. - Labs CBC & Chem 7: 09/03/20 05:35 09/03/20 04:23 Labs: Abnormal Lab Results - Last 24 Hours (Table) 09/01/20 09/01/20 09/01/20 Range/Units 01:25 04:50 04:50 WBC 23.0 H (3.8-10.6) k/uL RBC 4.02 L (4.30-5.90) m/uL Hgb 11.4 L (13.0-17.5) gm/dL Hct 32.8 L (39.0-53.0) % RDW 16.3 H (11.5-15.5) % Plt Count 84 L (150-450) k/uL PT 13.2 H (9.0-12.0) sec INR 1.3 H (<1.2) Sodium (137-145) mmol/L Chloride (98-107) mmol/L Carbon Dioxide (22-30) mmol/L BUN (9-20) mg/dL Creatinine (0.66-1.25) mg/dL Glucose (74-99) mg/dL POC Glucose (mg/dL) 120 H (75-99) mg/dL Calcium (8.4-10.2) mg/dL Total Bilirubin (0.2-1.3) mg/dL Total Protein (6.3-8.2) g/dL Albumin (3.5-5.0) g/dL Urine Protein (Negative) Urine Blood (Negative) Urine Bilirubin (Negative) Ur Leukocyte Esterase (Negative) Urine RBC (0-5) /hpf Urine WBC (0-5) /hpf Urine Bacteria (None) /hpf Hyaline Casts (0-2) /lpf Urine Mucus (None) /hpf Urine Sperm (None) /hpf 09/01/20 09/01/20 09/01/20 Range/Units 04:50 14:37 16:00 WBC (3.8-10.6) k/uL RBC (4.30-5.90) m/uL Hgb (13.0-17.5) gm/dL Hct (39.0-53.0) % RDW (11.5-15.5) % Plt Count (150-450) k/uL PT (9.0-12.0) sec INR (<1.2) Sodium 123 L 124 L (137-145) mmol/L Chloride 96 L (98-107) mmol/L Carbon Dioxide 17 L (22-30) mmol/L BUN 55 H (9-20) mg/dL Creatinine 3.73 H (0.66-1.25) mg/dL Glucose 108 H (74-99) mg/dL POC Glucose (mg/dL) (75-99) mg/dL Calcium 7.6 L (8.4-10.2) mg/dL Total Bilirubin 2.3 H (0.2-1.3) mg/dL Total Protein 5.3 L (6.3-8.2) g/dL Albumin 2.4 L (3.5-5.0) g/dL Urine Protein 2+ H (Negative) Urine Blood Large H (Negative) Urine Bilirubin 1+ H (Negative) Ur Leukocyte Esterase Large H (Negative) Urine RBC >182 H (0-5) /hpf Urine WBC 111 H (0-5) /hpf Urine Bacteria Few H (None) /hpf Hyaline Casts 148 H (0-2) /lpf Urine Mucus Few H (None) /hpf Urine Sperm Moderate H (None) /hpf Microbiology - Last 24 Hours (Table) 08/30/20 15:15 Gram Stain - Preliminary Ascites Fluid Body Fluid Culture - Preliminary 08/30/20 14:45 Blood Culture - Preliminary Blood No Growth after 24 hours 08/30/20 14:30 Blood Culture - Preliminary Blood No Growth after 24 hours Assessment and Plan Assessment: Shortness of breath secondary to tense ascites Ascites status post paracentesis with 8.9 L fluid removal. Hypotension likely due to large volume paracentesis and hypoalbuminemia. Leukocytosis. Possible SBP History of severe alcohol abuse and has been abstinent for the past 1 year Liver cirrhosis likely alcoholic Hypervolemic hyponatremia Acute kidney injury with possible underlying CK D/hepatorenal syndrome Hypoalbuminemia Thrombocytopenia due to liver cirrhosis Severe splenomegaly DVT prophylaxis Plan: Patient is status post paracentesis and fluid removal. Repeat paracentesis was done today. Continue to monitor blood pressure and Gentle IV hydration.. Monitor renal function. Gastroenterology and Nephrology is following. negative hepatitis panel. ordered Alpha fetoprotein level. Follow-up fluid culture report. Prognosis is guarded at this time. Time with Patient: Greater than 30
--- NOTE | 2020-09-03 10:04 | P.PN ---
Subjective Progress Note Date: 09/02/20 Principal diagnosis: Ascites Patient is a 55-year-old male with a known history of alcohol abuse currently not drinking, everyday smoker, blindness and chronic back pain presents ER with complaints of shortness of breath, abdominal pain and increased girth. Patient was drinking heavily and has been abstinent for the past 1 year. Denied any complaints of fever or chills. No chest pain. No recent illnesses. Patient is also complaining of increased lower action to swelling. Chest x-ray showed suspected bilateral pleural effusions and associated atelectasis, correlate to exclude pneumonia. Hyperlipidemia. Ultrasound of the abdomen showed moderate to large abdominal ascites throughout the abdomen. Hepatomegaly with cirrhotic morphology of the liver. No focal lesion identified. No gallstones or biliary ductal dilatation. Severe splenomegaly. Laboratory data showed no obesity 19.9, hemoglobin 15.0 and platelets 126 INR 1.3 Sodium 126, potassium 5.2, chloride 93, BUN 38 and creatinine 1.96 ProBNP 3480, all within 3.4 Patient is status post paracentesis with 8.9 L of fluid removal. Patient was given a dose of ceftriaxone in the ER. Ascites fluid analysis showed 275 nucleated cells with 14 polynuclear WBCs. 08/31/2020 Patient is currently lying in the bed. Complains of generalized weakness and dizzy. SBP in the 80s. Patient was given 500 cc of normal saline fluid bolus. Patient has been afebrile. No complaints of chest pain. Shortness of breath is better. Laboratory data showed WBC 15.0 improved from 9.9 yesterday. Hemoglobin 11.4 and platelets 99 Sodium level dropped to 121 and chloride 91, BUN 48 and increase it to creatinine 2.84. Lasix has been discontinued. Patient has been afebrile. No nausea or vomiting. Started on low-salt diet. GI is following. 09/01/2020 Patient was transferred to MICU last night due to hypotension with blood pressure not improving with fluid boluses. Patient is awake alert and oriented but feels very weak. Ultrasound of the abdomen showed moderate to large ascites and repeat paracentesis was ordered. Patient is undergoing to be paracentesis now. Monitor blood pressure closely and GI is following. 09/02/2020 Patient is currently in the MICU and resting in the bed comfortably. Patient was given morphine for abdominal pain.. Otherwise still requiring pressor support. Started on albumin dose. Patient has been afebrile. Currently requiring 2 L oxygen with another cannula. Laboratory data showed WBC 33.9, hemoglobin 11.0 and platelets 91 sodium level is 123 and potassium 5.2 and BUN 58 and creatinine 3.6. Patient was given a dose of Tolvapan due to hyponatremia. Nephrology and GI is on board. Current medications reviewed. Objective - Vital Signs Vital signs: Vital Signs Temp 97.5 F L 09/02/20 12:00 Pulse 82 09/02/20 14:00 Resp 12 09/02/20 14:00 BP 101/61 09/02/20 14:00 Pulse Ox 98 09/02/20 14:00 Intake & Output 09/01/20 09/02/20 09/02/20 18:59 06:59 18:59 Intake Total 1426.307 623 4119.769 Output Total 153 887 5438 Balance 1067.091 285 684.769 Weight 97.6 kg Intake: IV 102 356 8896 .9 @ 75mL/hr 675 825 75 Albumin Human 25% 50 ml 150 150 50 In Empty Bag 1 bag @ 50 mls/hr IVPB ONCE ONE Rx#: [id number] Sodium Chloride 0.9% 1, 1050 000 ml @ 150 mls/hr IV . Q6H40M [facility] Rx#:[id number] cefTRIAXone 1 gm In 50 Sodium Chloride 0.9% 50 ml @ 100 mls/hr IVPB Q24HR [facility] Rx#:[id number] Intake, IV Titration 601.091 514.769 Amount Norepinephrine 4 mg In 601.091 514.769 Sodium Chloride 0.9% 250 ml @ 0.05 MCG/KG/MIN 18. 802 mls/hr IV .[id number] [facility] Rx#:[id number] Output: Urine 094 380 5613 Other: Voiding Method Indwelling Catheter Indwelling Catheter Indwelling Catheter - Exam PHYSICAL EXAMINATION: Patient is lying in the bed comfortably, no acute distress, awake alert and oriented.. HEENT: Normocephalic. Neck is supple. Pupils reactive. Nostrils clear. Oral cavity is moist. Ears reveal no drainage. Neck reveals no JVD, carotid bruits, or thyromegaly. CHEST EXAMINATION: Trachea is central. Symmetrical expansion. Bibasilar diminished air entry, no wheezing.. CARDIAC: Normal S1, S2 with no gallops. No murmurs ABDOMEN: Soft. Severely distended with ascites and fluid thrill, nontender. Bowel sounds present. Organomegaly could not be assessed. No abdominal bruits. Extremities: 3+ bilateral pedal edema. No clubbing or cyanosis Neurologically awake, alert, oriented x3 with well-coordinated movements. No focal deficits noted Skin: No rash or skin lesions. Psychiatric: Coperative. Nonsuicidal Musculoskeletal: No joint swelling or deformity. Normal range of motion. - Labs CBC & Chem 7: 09/03/20 05:35 09/03/20 04:23 Labs: Abnormal Lab Results - Last 24 Hours (Table) 09/01/20 09/01/20 09/01/20 Range/Units 14:37 16:00 19:57 WBC (3.8-10.6) k/uL RBC (4.30-5.90) m/uL Hgb (13.0-17.5) gm/dL Hct (39.0-53.0) % RDW (11.5-15.5) % Plt Count (150-450) k/uL Neutrophils # (Manual) (1.3-7.7) k/uL Lymphocytes # (Manual) (1.0-4.8) k/uL Monocytes # (Manual) (0-1.0) k/uL Basophils # (Manual) (0-0.2) k/uL Metamyelocytes # (Man) (0) k/uL Myelocytes # (Manual) (0) k/uL Promyelocytes # (Man) (0) k/uL Sodium 124 L 123 L (137-145) mmol/L Potassium (3.5-5.1) mmol/L Chloride (98-107) mmol/L Carbon Dioxide (22-30) mmol/L BUN (9-20) mg/dL Creatinine (0.66-1.25) mg/dL Glucose (74-99) mg/dL Calcium (8.4-10.2) mg/dL Total Bilirubin (0.2-1.3) mg/dL Total Protein (6.3-8.2) g/dL Albumin (3.5-5.0) g/dL Urine Protein 2+ H (Negative) Urine Blood Large H (Negative) Urine Bilirubin 1+ H (Negative) Ur Leukocyte Esterase Large H (Negative) Urine RBC >182 H (0-5) /hpf Urine WBC 111 H (0-5) /hpf Urine Bacteria Few H (None) /hpf Hyaline Casts 148 H (0-2) /lpf Urine Mucus Few H (None) /hpf Urine Sperm Moderate H (None) /hpf 09/02/20 09/02/20 Range/Units 05:14 05:14 WBC 33.9 H (3.8-10.6) k/uL RBC 3.94 L (4.30-5.90) m/uL Hgb 11.0 L (13.0-17.5) gm/dL Hct 33.3 L (39.0-53.0) % RDW 16.6 H (11.5-15.5) % Plt Count 91 L (150-450) k/uL Neutrophils # (Manual) 16.61 H (1.3-7.7) k/uL Lymphocytes # (Manual) 0.68 L (1.0-4.8) k/uL Monocytes # (Manual) 12.54 H (0-1.0) k/uL Basophils # (Manual) 0.34 H (0-0.2) k/uL Metamyelocytes # (Man) 1.70 H (0) k/uL Myelocytes # (Manual) 1.36 H (0) k/uL Promyelocytes # (Man) 0.34 H (0) k/uL Sodium 123 L (137-145) mmol/L Potassium 5.2 H (3.5-5.1) mmol/L Chloride 95 L (98-107) mmol/L Carbon Dioxide 17 L (22-30) mmol/L BUN 58 H (9-20) mg/dL Creatinine 3.60 H (0.66-1.25) mg/dL Glucose 107 H (74-99) mg/dL Calcium 7.4 L (8.4-10.2) mg/dL Total Bilirubin 2.6 H (0.2-1.3) mg/dL Total Protein 5.2 L (6.3-8.2) g/dL Albumin 2.5 L (3.5-5.0) g/dL Urine Protein (Negative) Urine Blood (Negative) Urine Bilirubin (Negative) Ur Leukocyte Esterase (Negative) Urine RBC (0-5) /hpf Urine WBC (0-5) /hpf Urine Bacteria (None) /hpf Hyaline Casts (0-2) /lpf Urine Mucus (None) /hpf Urine Sperm (None) /hpf Microbiology - Last 24 Hours (Table) 08/30/20 15:15 Anaerobic Culture - Preliminary Ascites Fluid 08/30/20 14:30 Blood Culture - Preliminary Blood No Growth after 48 hours 08/30/20 14:45 Blood Culture - Preliminary Blood No Growth after 48 hours 08/30/20 15:15 Gram Stain - Preliminary Ascites Fluid Body Fluid Culture - Preliminary Assessment and Plan Assessment: Shortness of breath secondary to tense ascites Ascites status post paracentesis with 8.9 L fluid removal. Hypotension likely due to large volume paracentesis and hypoalbuminemia. Acute kidney injury secondary to ATN, hypotension with possible underlying CK D/hepatorenal syndrome Metabolic acidosis secondary to acute kidney injury Leukocytosis. Possible SBP History of severe alcohol abuse and has been abstinent for the past 1 year Liver cirrhosis likely alcoholic Hypervolemic hyponatremia Hypoalbuminemia Thrombocytopenia due to liver cirrhosis Severe splenomegaly DVT prophylaxis Plan: Patient is status post paracentesis and fluid removal 2 started on albuterol and. Continue with pressor support.. Continue to monitor blood pressure and Gentle IV hydration.. Monitor renal function. Continue with antibiotics in the form of ceftriaxone. Monitor renal function. Gastroenterology and Nephrology is following. negative hepatitis panel. ordered Alpha fetoprotein level. Follow-up fluid culture report. Prognosis is guarded at this time. Time with Patient: Greater than 30
--- NOTE | 2020-09-03 12:35 | P.PN ---
Subjective Progress Note Date: 09/03/20 Principal diagnosis: Liver failure 55-year-old male who apparently does not see a doctor on a regular basis. The patient presented to the emergency room on August 30 at 1045, with multiple complaints including chest pain, abdominal pain, abdominal distention, nausea, lower extremity edema, and shortness of breath. The patient is a recovering alcoholic and states she's not had anything to drink in one year. He does admit to smoking on a daily basis. He apparently does not take any medications on a regular basis although one point, he was on Abilify, and Zoloft. He has not been feeling well for a couple weeks or so prior to this admission. On this admission, he was seen by interventional radiology and had a high volume paracentesis. On August 30, 8 L was removed. He did have albumin replacement therapy. The patient came to the intensive care unit on August 31 for low blood pressure. An "A" was called last night and the patient was transferred down after one of the ICU nurses, Teresa Beckett, evaluated the patient. Currently, the patient is on O2 at 2 L by nasal cannula saline at 75 mL an hour, and norepinephrine at 13 mcg/m. We will ask interventional radiology to repeat the paracentesis. His transduced bladder pressure was 13. Currently, he bhaskar arently takes no medications at home. Progress note dated 09/02/2020. 55-year-old male who is a recovering alcoholic. The patient has alcoholic liver disease and liver cirrhosis. He came into the hospital on August 30, complaining of chest pain, abdominal pain, abdominal distention, nausea, april rtness of breath, and lower extremity edema. On August 30, he had a large- volume paracentesis, with 8.7 L removed. Yesterday, he also had another paracentesis abdominis, with 12 L removed. Currently, the patient remains on norepinephrine for hypotension at 21 mcg/m. He is getting saline at 75 mL an hour. The patient will get 1 dose of hydrocortisone today. It will be 100 mg, IV push. His cortisol level was 38. TSH was normal. In addition, we'll increase his fluids up to 150 mL an hour, and given 12-1/2 g of 25% albumin for a couple of days. He is hyponatremic. We believe he has hypovolemic hyponatremia. We'll hoping that the albumin and increased saline will expand his intravascular volume. Currently, his white count is 33.9, hemoglobin 11, hematocrit 33.3, and platelet count 91,000. His sodium is 123, potassium 5.2, chloride 95, CO2 17, anion gap 11, BUN and creatinine 58 and 3.60. His albumin is only 2.5. Progress note dated 09/03/2020. 55-year-old male who is a recovering alcoholic. Unfortunately, he developed alcoholic liver disease, alcoholic cirrhosis. The patient has had severe and profound ascites, and now has required paracentesis 3. Today, we were kim enough to have Dr. Chaidez come in and do his third paracentesis abdominis. His previous 2 procedures, -8.7, and 12 L of fluid. This will continue to be a problem though. Currently, the patient's on O2 at 2 L by nasal cannula, getting saline at 75 mL an hour, and also getting norepinephrine at 6 mcg/m. The patient is on IV Rocephin. The patient has significant nausea, and also has significant hypotension, when the ascitic fluid builds up suggesting abdominal compartment syndrome. His current white blood count is 56,000, hemoglobin 7.9, hematocrit 23.8, and platelet count 73,000. His sodium is 1:30, potassium 3.8, chlorides 108, CO2 18, anion gap is 4, and BUN and creatinine were 46 and 2.41. He has a non-anion gap metabolic acidosis. It secondary to renal failure. His calcium is 5.9. The chest x-ray today suggests a hiatal hernia, and bibasilar atelectasis. His overall prognosis is very poor. Even though the patient's only 55, I'm not sure what else to do for this patient. It might be a good idea to transfer him to a liver center. The patient's MELD score is 19, with a 6% estimated 3 month mortality. Objective - Vital Signs Vital signs: Vital Signs Temp 97.7 F 09/03/20 08:00 Pulse 98 09/03/20 12:00 Resp 17 09/03/20 12:00 BP 82/49 09/03/20 12:00 Pulse Ox 98 09/03/20 12:00 Intake & Output 01/15/21 01/16/21 01/16/21 18:59 06:59 18:59 Intake Total 2373.048 2504.859 584.04 Output Total 1810 1520 405 Balance 563.048 984.859 179.04 Weight 98.2 kg Intake: IV 1825 1800 525 .9 @ 75mL/hr 75 Albumin Human 25% 50 ml 50 In Empty Bag 1 bag @ 50 mls/hr IVPB ONCE ONE Rx#: [id number] Sodium Chloride 0.9% 1, 1650 1800 525 000 ml @ 75 mls/hr IV . [id number] COUNTS INCLUDE 234 BEDS AT THE [facility] Rx#:[id number] cefTRIAXone 1 gm In 50 Sodium Chloride 0.9% 50 ml @ 100 mls/hr IVPB Q24HR COUNTS INCLUDE 234 BEDS AT THE [facility] Rx#:[id number] Intake, IV Titration 548.048 224.859 59.04 Amount Albumin Human 25% 50 ml 50 In Empty Bag 1 bag @ 50 mls/hr IVPB Q12HR COUNTS INCLUDE 234 BEDS AT THE [facility] Rx# :[id number] Norepinephrine 4 mg In 548.048 174.859 59.04 Sodium Chloride 0.9% 250 ml @ 0.05 MCG/KG/MIN 18. 802 mls/hr IV .[id number] COUNTS INCLUDE 234 BEDS AT THE [facility] Rx#:[id number] Oral 480 Output: Urine 1810 1520 400 Emesis 5 Other: Voiding Method Indwelling Catheter Indwelling Catheter Indwelling Catheter - Exam No acute distress, oriented 3. Patient on nasal O2 at 2 L/m. HEENT examination is grossly unremarkable. Mucous membranes are moist. No oral lesions. Neck supple. Full range of motion. No adenopathy thyromegaly or neck vein distention. Cardiovascular examination reveals regular rhythm rate. S1-S2 normal. No S3 or S4. No discernible murmur noted. Heart sounds are distant. Heart rate 98 bpm. Lungs reveal clear breath sounds. Her sounds are equal bilaterally. No adventitious lung sounds including wheezes rhonchi or crackles. Abdomen very distended, more so, then yesterday. Bowel sounds are not noted. Mild abdominal tenderness. No mass. Extremities are intact. No cyanosis or clubbing. There is 1+ edema. It is pitting. Skin is without rash or lesion. Neurologic examination is brief but nonfocal. - Labs CBC & Chem 7: 09/03/20 05:35 09/03/20 04:23 Labs: Abnormal Lab Results - Last 24 Hours (Table) 09/03/20 09/03/20 Range/Units 04:23 05:35 WBC 56.0 H* (3.8-10.6) k/uL RBC 2.81 L (4.30-5.90) m/uL Hgb 7.9 L D (13.0-17.5) gm/dL Hct 23.8 L (39.0-53.0) % RDW 16.7 H (11.5-15.5) % Plt Count 73 L (150-450) k/uL Blast Cells % 2 H* % Neutrophils # (Manual) 28.56 H (1.3-7.7) k/uL Monocytes # (Manual) 17.36 H (0-1.0) k/uL Metamyelocytes # (Man) 1.12 H (0) k/uL Myelocytes # (Manual) 5.60 H (0) k/uL Blast Cells # (Man) 1.12 H (0) k/uL Nucleated RBCs 1 H (0-0) /100 WBC Sodium 130 L (137-145) mmol/L Chloride 108 H (98-107) mmol/L Carbon Dioxide 18 L (22-30) mmol/L BUN 46 H (9-20) mg/dL Creatinine 2.41 H (0.66-1.25) mg/dL Calcium 5.9 L* (8.4-10.2) mg/dL Total Bilirubin 2.6 H (0.2-1.3) mg/dL AST 64 H (17-59) U/L Total Protein 3.8 L (6.3-8.2) g/dL Albumin 1.7 L (3.5-5.0) g/dL Microbiology - Last 24 Hours (Table) 08/30/20 14:30 Blood Culture - Preliminary Blood No Growth after 72 hours 08/30/20 14:45 Blood Culture - Preliminary Blood No Growth after 72 hours 08/30/20 15:15 Gram Stain - Preliminary Ascites Fluid Body Fluid Culture - Preliminary Assessment and Plan Assessment: Chronic alcoholic liver disease with alcoholic cirrhosis. Previous history of heavy alcohol consumption, although patient states he has not had anything to drink in one year. Severe abdominal ascites, status post high volume paracentesis on 08/30/2020. Repeat paracentesis abdominis, on 09/01/2020, with 12 L being removed. Third paracentesis performed on 09/03/2020. Anemia of chronic disease. Abdominal compartment syndrome (ACS). 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 Mild alcohol induced coagulopathy. Hypovolemic hyponatremia. Chronic kidney disease. Non-anion gap metabolic acidosis. Hyperbilirubinemia. Chronic constipation. MELD score is 19, suggesting a 6%, 3 month mortality. Plan: Plan dated 09/03/2020. The patient required a third paracentesis today. Every time his ascitic fluid builds up, he develops hypotension and profound nausea and early satiety. In essence, he develops a abdominal compartment syndrome. His MELD score today was 19, suggesting a 6% 3 month mortality. The patient should be considered for transfer to a liver center. He apparently has not had anything to drink for one year. He will continue to develop ascites, and require every couple day paracentesis. His overall prognosis is poor. He remains on Rocephin. In addition, he remains on norepinephrine at 6 mcg/m. Time with Patient: Greater than 30
--- NOTE | 2020-09-03 13:30 | P.PN ---
Subjective Progress Note Date: 09/03/20 Principal diagnosis: Decompensated alcoholic cirrhosis, ascites, suspected hepatorenal syndrome Patient seen lying in bed with no acute complaints. Tolerating diet. He feels less distended today after paracentesis. Objective - Vital Signs Vital signs: Vital Signs Temp 97.7 F 09/03/20 08:00 Pulse 98 09/03/20 12:00 Resp 17 09/03/20 12:00 BP 82/49 09/03/20 12:00 Pulse Ox 98 09/03/20 12:00 Intake & Output 09/02/20 09/03/20 09/03/20 18:59 06:59 18:59 Intake Total 2373.048 2504.859 659.04 Output Total 1810 1520 3705 Balance 563.048 984.859 -3045.96 Weight 98.2 kg Intake: IV 1825 1800 600 .9 @ 75mL/hr 75 Albumin Human 25% 50 ml 50 In Empty Bag 1 bag @ 50 mls/hr IVPB ONCE ONE Rx#: [id number] Sodium Chloride 0.9% 1, 1650 1800 600 000 ml @ 75 mls/hr IV . [id number] [facility] Rx#:[id number] cefTRIAXone 1 gm In 50 Sodium Chloride 0.9% 50 ml @ 100 mls/hr IVPB Q24HR [facility] Rx#:[id number] Intake, IV Titration 548.048 224.859 59.04 Amount Albumin Human 25% 50 ml 50 In Empty Bag 1 bag @ 50 mls/hr IVPB Q12HR [facility] Rx# :[id number] Norepinephrine 4 mg In 548.048 174.859 59.04 Sodium Chloride 0.9% 250 ml @ 0.05 MCG/KG/MIN 18. 802 mls/hr IV .[id number] [facility] Rx#:[id number] Oral 480 Output: Urine 1810 1520 500 Emesis 5 Other 3200 Other: Voiding Method Indwelling Catheter Indwelling Catheter Indwelling Catheter - Exam On physical examination, patient appears comfortable in no apparent distress. HEAD: Normocephalic, atraumatic. EYES: No scleral icterus. No conjunctival injection. MOUTH: No lesions, tongue midline. NECK: Trachea midline, no gross abnormalities. CHEST: Decreased air entry in all lung gross. ABDOMEN: Soft, mildly distended. Bowel sounds are positive. Pronounced splenomegaly. No guarding or rigidity. EXTREMITIES: No pedal edema. SKIN: No rashes, no jaundice. NEUROLOGIC: Alert and oriented x3, no asterixis. No focal deficits. - Labs CBC & Chem 7: 09/03/20 05:35 09/03/20 04:23 Labs: Abnormal Lab Results - Last 24 Hours (Table) 09/03/20 09/03/20 Range/Units 04:23 05:35 WBC 56.0 H* (3.8-10.6) k/uL RBC 2.81 L (4.30-5.90) m/uL Hgb 7.9 L D (13.0-17.5) gm/dL Hct 23.8 L (39.0-53.0) % RDW 16.7 H (11.5-15.5) % Plt Count 73 L (150-450) k/uL Blast Cells % 2 H* % Neutrophils # (Manual) 28.56 H (1.3-7.7) k/uL Monocytes # (Manual) 17.36 H (0-1.0) k/uL Metamyelocytes # (Man) 1.12 H (0) k/uL Myelocytes # (Manual) 5.60 H (0) k/uL Blast Cells # (Man) 1.12 H (0) k/uL Nucleated RBCs 1 H (0-0) /100 WBC Sodium 130 L (137-145) mmol/L Chloride 108 H (98-107) mmol/L Carbon Dioxide 18 L (22-30) mmol/L BUN 46 H (9-20) mg/dL Creatinine 2.41 H (0.66-1.25) mg/dL Calcium 5.9 L* (8.4-10.2) mg/dL Total Bilirubin 2.6 H (0.2-1.3) mg/dL AST 64 H (17-59) U/L Total Protein 3.8 L (6.3-8.2) g/dL Albumin 1.7 L (3.5-5.0) g/dL Microbiology - Last 24 Hours (Table) 08/30/20 14:30 Blood Culture - Preliminary Blood No Growth after 72 hours 08/30/20 14:45 Blood Culture - Preliminary Blood No Growth after 72 hours 08/30/20 15:15 Gram Stain - Preliminary Ascites Fluid Body Fluid Culture - Preliminary Assessment and Plan (1) Decompensated hepatic cirrhosis Narrative/Plan: 55-year-old male with a medical history significant for significant alcohol abuse for 40 years for which she has been sober for 1 year presented to the hospital due to abdominal distention, decreased oral intake and shortness of breath. Paracentesis was performed with 8.7 L of ascitic fluid removed, he is subsequently had 2 additional paracentesis. Suspicion is for decompensated alcoholic cirrhosis of the liver with new onset ascites. No prior history of encephalopathy or GI bleed. Patient's care is somewhat complicated as he is hyponatremic with elevated creatinine, which are improving today. Nephrology service following the patient in treating for possible hepatorenal syndrome. Current Visit: Yes Status: Acute Code(s): K72.90 - HEPATIC FAILURE, UNSPECIFIED WITHOUT COMA; K74.60 - UNSPECIFIED CIRRHOSIS OF LIVER SNOMED Code(s): 737984209 (2) Abdominal ascites Current Visit: Yes Status: Acute Code(s): R18.8 - OTHER ASCITES SNOMED Code(s): 458492344 Plan: Supportive care Okay for sodium restricted diet as tolerated Continue alcohol abstinence Nephrology service consulted and managing fluid status Continue Midodrine, octreotide and albumin for suspected hepatorenal syndrome Sodium restricted diet discussed with the patient at length Patient will need continued follow up with GI after discharge Continue empiric ceftriaxone although fluid studies were not suggestive of SBP Overall poor prognosis given complex medical problems, if patient's labs and clinical picture do not improve may consider transfer to tertiary center for evaluation by hepatology service Thank you for allowing us to participate in the care of the patient
[2020-09-04] MEDS: MORPHINE SULFATE 4 MG/ML SYRINGE IV PRN ×4 (03:51→22:56)
[2020-09-04] MEDS: SODIUM CHLORIDE 0.9% 1,000 ML IV SCH ×2 (03:52→08:00)
[2020-09-04 05:16] LABS: Albumin 2.4 g/dL (3.5-5.0); Potassium 5.2 mmol/L (3.5-5.1); Total Bilirubin 4.9 mg/dL (0.2-1.3)
[2020-09-04 05:37] LABS: Anisocytosis Slight; HCT 22.3 % (39.0-53.0); Hypochromasia Marked; MCH 27.6 pg (25.0-35.0); MCHC 30.7 g/dL (31.0-37.0); Mean Platelet Volume 13.4; Platelet Count 100 k/uL (150-450); Poikilocytosis Slight; RBC 2.49 m/uL (4.30-5.90); RDW 19.1 % (11.5-15.5)
[2020-09-04 05:47] LABS: MCV 89.7 fL (80.0-100.0)
[2020-09-04 05:50] LABS: HGB 6.9 gm/dL (13.0-17.5)
[2020-09-04] MEDS: PANTOPRAZOLE 40 MG TABLET PO SCH ×2 (06:31→16:20)
[2020-09-04] MEDS: MIDODRINE 5 MG TAB PO SCH ×3 (06:31→16:17)
[2020-09-04 06:45] LABS: Band Neutrophils % 9 %; Metamyelocytes % 5 %; Myelocytes % 7 %; Neutrophils % (M) 53 %; Nucleated Red Blood Cells 4 /100 WBC (0-0); Promyelocytes % 2 %; Total Cells Counted 200
[2020-09-04 06:46] LABS: Large Platelets Present
[2020-09-04 06:47] LABS: Eosinophils # (M) 1.07 k/uL (0-0.7); Lymphocytes # (M) 1.07 k/uL (1.0-4.8); Metamyelocytes # (M) 5.35 k/uL (0); Monocytes # (M) 25.68 k/uL (0-1.0); Myelocytes # (M) 7.49 k/uL (0); Promyelocytes # (M) 2.14 k/uL (0)
--- NOTE | 2020-09-04 07:16 | US ---
EXAMINATION TYPE: US paracentesis abd w/image DATE OF EXAM: 09/03/2020 COMPARISON: NONE HISTORY: Ascites. PROCEDURE: Maximal barrier technique was utilized. The skin overlying a suitable pocket of fluid was localized with ultrasound and the overlying skin was prepped and draped. Ultrasound was utilized with sterile technique. Lidocaine was used for local anesthesia and a skin arie made with a scalpel. Catheter was advanced under direct ultrasound guidance into a suitable pocket of fluid and approximately 3.2 liter s of serous sanguinous fluid were removed. Catheter was withdrawn and hemostasis achieved. There is no immediate complication; the patient is discharged in stable condition. IMPRESSION: STATUS POST ULTRASOUND GUIDED PARACENTESIS FOR PALLIATION OF ASCITES. THIS PROCEDURE WA S PERFORMED BY THE UNDERSIGNED.
[2020-09-04] MEDS: NOREPINEPHRINE 4 MG in SODIUM CHLORIDE 0.9% 250 ML IV SCH ×3 (07:20→20:00)
[2020-09-04] MEDS ORDERED: FUROSEMIDE 10 MG/ML 10 ML VIAL IV STA (07:57)
--- NOTE | 2020-09-04 08:15 | P.PN ---
Subjective Patient is seen in follow-up for acute kidney injury and hyponatremia. He received a dose of Samsca September 02. Sodium level 127 today. Renal function worse. He is also on higher dose of Levophed compared to yesterday. Nonoliguric. Receiving normal saline at 70 mL an hour. Vital signs are stable. On Levophed. General: On nasal cannula. HEENT: Head exam is unremarkable. Neck is without jugular venous distension. LUNGS: Breath sounds decreased. HEART: Rate and Rhythm are regular. ABDOMEN: Soft, nontender. EXTREMITITES: 1+ edema. Objective - Vital Signs Vital signs: Vital Signs Temp 97.8 F 09/04/20 04:00 Pulse 130 H 09/04/20 07:00 Resp 14 09/04/20 07:00 BP 92/53 09/04/20 07:00 Pulse Ox 95 09/04/20 07:00 Intake & Output 09/03/20 09/04/20 09/04/20 18:59 06:59 18:59 Intake Total 1109.04 1396.095 106.086 Output Total 4080 815 55 Balance -2970.96 581.095 51.086 Weight 96.479 kg Intake: IV 1050 900 75 Sodium Chloride 0.9% 1, 1050 900 75 000 ml @ 75 mls/hr IV . [id number] [facility] Rx#:[id number] Intake, IV Titration 59.04 496.095 31.086 Amount Albumin Human 25% 50 ml 50 In Empty Bag 1 bag @ 50 mls/hr IVPB Q12HR [facility] Rx# :[id number] Norepinephrine 4 mg In 59.04 446.095 31.086 Sodium Chloride 0.9% 250 ml @ 0.05 MCG/KG/MIN 18. 802 mls/hr IV .[id number] [facility] Rx#:[id number] Output: Urine 875 815 55 Emesis 5 Other 3200 Other: Voiding Method Indwelling Catheter Indwelling Catheter - Labs CBC & Chem 7: 09/04/20 04:45 09/04/20 04:45 Labs: Abnormal Lab Results - Last 24 Hours (Table) 09/04/20 09/04/20 09/04/20 Range/Units 04:45 04:45 06:54 WBC 107.0 H* (3.8-10.6) k/uL RBC 2.49 L (4.30-5.90) m/uL Hgb 6.9 L* (13.0-17.5) gm/dL Hct 22.3 L (39.0-53.0) % MCHC 30.7 L (31.0-37.0) g/dL RDW 19.1 H (11.5-15.5) % Plt Count 100 L (150-450) k/uL Neutrophils # (Manual) 66.30 H (1.3-7.7) k/uL Monocytes # (Manual) 25.68 H (0-1.0) k/uL Eosinophils # (Manual) 1.07 H (0-0.7) k/uL Metamyelocytes # (Man) 5.35 H (0) k/uL Myelocytes # (Manual) 7.49 H (0) k/uL Promyelocytes # (Man) 2.14 H (0) k/uL Nucleated RBCs 4 H (0-0) /100 WBC Sodium 127 L (137-145) mmol/L Potassium 5.2 H (3.5-5.1) mmol/L Carbon Dioxide 19 L (22-30) mmol/L BUN 62 H (9-20) mg/dL Creatinine 2.98 H (0.66-1.25) mg/dL Glucose 107 H (74-99) mg/dL Calcium 8.0 L (8.4-10.2) mg/dL Total Bilirubin 4.9 H (0.2-1.3) mg/dL AST 173 H (17-59) U/L Alkaline Phosphatase 223 H (38-126) U/L Total Protein 5.0 L (6.3-8.2) g/dL Albumin 2.4 L (3.5-5.0) g/dL Crossmatch See Detail Microbiology - Last 24 Hours (Table) 08/30/20 15:15 Anaerobic Culture - Final Ascites Fluid 08/30/20 14:45 Blood Culture - Preliminary Blood No Growth after 96 hours 08/30/20 14:30 Blood Culture - Preliminary Blood No Growth after 96 hours 08/30/20 15:15 Gram Stain - Final Ascites Fluid Body Fluid Culture - Final Assessment and Plan Plan: Assessment: 1. Acute kidney injury secondary to ATN secondary to hypotension/shock. Also concern for hepatorenal syndrome. Renal function worse. Creatinine 2.98 today. 2. Hypervolemic hyponatremia. Status post Samsca September 02. Sodium 127 today. 3. Ascites secondary to liver cirrhosis. Status post paracentesis on August 30 to September 01 with total 20 L removed; another paracentesis yesterday with 3.2 L drained. 4. Hypocalcemia secondary to acute kidney injury. Status post placement. Better. 5. Metabolic acidosis secondary to acute kidney injury and IV fluids. Stable. 6. Acute blood loss anemia. Hemoglobin 6.9 today. Scheduled to receive a unit of blood today. Plan: Maintain IV albumin 25 g twice daily - stop tomorrow. Decrease rate of normal saline to 50 mL an hour. Wean vasopressors. Maintain midodrine. Continue to monitor renal function and urine output. Lasix 60 mg IV once after blood transfusion completed. White count extremely elevated. Consider CAT scan of the abdomen. Potential transfer to tertiary center for hepatology eval.
[2020-09-04] MEDS: OCTREOTIDE 100 MCG/ML INJ SQ SCH ×3 (09:48→22:57)
[2020-09-04] MEDS: ALBUMIN HUMAN 25% 50 ML in EMPTY BAG 1 BAG IVPB SCH (09:57)
[2020-09-04] MEDS: polyethylene glycoL 3350 17 GM POWD.PACK PO SCH (11:25)
[2020-09-04 12:22] LABS: Amorphous Sediment,Urine Occasional /hpf; Appearance,Urine Turbid (Clear); Bacteria,Urine Rare /hpf; Bilirubin,Urine Negative (Negative); Blood,Urine Large (Negative); Color,Urine Light Red; Glucose,Urine (UA) Negative (Negative); Granular Casts,Urine 12 /lpf (0); Hyaline Casts,Urine 10 /lpf (0-2); Ketones,Urine Negative (Negative); Leukocyte Esterase,Urine Large (Negative); Mucus,Urine Rare /hpf; Nitrite,Urine Negative (Negative); PH, Urine 5.5 (5.0-8.0); Protein,Urine 1+ (Negative); RBC,Urine 66 /hpf (0-5); Specific Gravity,Urine 1.012 (1.001-1.035); Sperm,Urine Occasional /hpf; Squamous Epithelial Cell,Urine 3 /hpf (0-4); Urobilinogen,Urine <2.0 mg/dL (<2.0); WBC,Urine 41 /hpf (0-5)
--- NOTE | 2020-09-04 12:51 | P.PN ---
Subjective Progress Note Date: 09/04/20 Principal diagnosis: Liver failure 55-year-old male who apparently does not see a doctor on a regular basis. The patient presented to the emergency room on August 30 at 1045, with multiple complaints including chest pain, abdominal pain, abdominal distention, nausea, lower extremity edema, and shortness of breath. The patient is a recovering alcoholic and states she's not had anything to drink in one year. He does admit to smoking on a daily basis. He apparently does not take any medications on a regular basis although one point, he was on Abilify, and Zoloft. He has not been feeling well for a couple weeks or so prior to this admission. On this admission, he was seen by interventional radiology and had a high volume paracentesis. On August 30, 8 L was removed. He did have albumin replacement therapy. The patient came to the intensive care unit on August 31 for low blood pressure. An "A" was called last night and the patient was transferred down after one of the ICU nurses, Teresa Beckett, evaluated the patient. Currently, the patient is on O2 at 2 L by nasal cannula saline at 75 mL an hour, and norepinephrine at 13 mcg/m. We will ask interventional radiology to repeat the paracentesis. His transduced bladder pressure was 13. Currently, he bhaskar arently takes no medications at home. Progress note dated 09/02/2020. 55-year-old male who is a recovering alcoholic. The patient has alcoholic liver disease and liver cirrhosis. He came into the hospital on August 30, complaining of chest pain, abdominal pain, abdominal distention, nausea, april rtness of breath, and lower extremity edema. On August 30, he had a large- volume paracentesis, with 8.7 L removed. Yesterday, he also had another paracentesis abdominis, with 12 L removed. Currently, the patient remains on norepinephrine for hypotension at 21 mcg/m. He is getting saline at 75 mL an hour. The patient will get 1 dose of hydrocortisone today. It will be 100 mg, IV push. His cortisol level was 38. TSH was normal. In addition, we'll increase his fluids up to 150 mL an hour, and given 12-1/2 g of 25% albumin for a couple of days. He is hyponatremic. We believe he has hypovolemic hyponatremia. We'll hoping that the albumin and increased saline will expand his intravascular volume. Currently, his white count is 33.9, hemoglobin 11, hematocrit 33.3, and platelet count 91,000. His sodium is 123, potassium 5.2, chloride 95, CO2 17, anion gap 11, BUN and creatinine 58 and 3.60. His albumin is only 2.5. Progress note dated 09/03/2020. 55-year-old male who is a recovering alcoholic. Unfortunately, he developed alcoholic liver disease, alcoholic cirrhosis. The patient has had severe and profound ascites, and now has required paracentesis 3. Today, we were kim enough to have Dr. Chaidez come in and do his third paracentesis abdominis. His previous 2 procedures, -8.7, and 12 L of fluid. This will continue to be a problem though. Currently, the patient's on O2 at 2 L by nasal cannula, getting saline at 75 mL an hour, and also getting norepinephrine at 6 mcg/m. The patient is on IV Rocephin. The patient has significant nausea, and also has significant hypotension, when the ascitic fluid builds up suggesting abdominal compartment syndrome. His current white blood count is 56,000, hemoglobin 7.9, hematocrit 23.8, and platelet count 73,000. His sodium is 1:30, potassium 3.8, chlorides 108, CO2 18, anion gap is 4, and BUN and creatinine were 46 and 2.41. He has a non-anion gap metabolic acidosis. It secondary to renal failure. His calcium is 5.9. The chest x-ray today suggests a hiatal hernia, and bibasilar atelectasis. His overall prognosis is very poor. Even though the patient's only 55, I'm not sure what else to do for this patient. It might be a good idea to transfer him to a liver center. The patient's MELD score is 19, with a 6% estimated 3 month mortality. Progress note dated 09/04/2020. 55-year-old male who is a recovering alcoholic. He was admitted to hospital with alcoholic liver disease and alcoholic cirrhosis. The patient has had significant and profound ascites. He has had paracentesis 3. The first time, 8.7 L was removed, the second time, 12 L was removed, and this most recent time, yesterday, 3.2 L was removed by Dr. Chaidez. Currently, the patient is on 2 L nasal cannula. He is getting saline at 50 mL an hour. The patient is also getting norepinephrine at 11 mcg/m. We've asked hematology to see him because of his white count which is 107,000. I did have a long discussion with the patient today about CODE STATUS. He would not want to be on life support. The patient's hemoglobin was 6.9. He will get 1 unit of blood. The patient's platelet count was 100,000. The sodium was 127, potassium 5.2, chloride 101, carbon dioxide 19, anion gap 7, BUN 62, and creatinine 2.98. Objective - Vital Signs Vital signs: Vital Signs Temp 97.6 F 09/04/20 12:00 Pulse 123 H 09/04/20 12:00 Resp 11 L 09/04/20 12:00 BP 83/61 09/04/20 12:00 Pulse Ox 95 09/04/20 12:00 Intake & Output 09/03/20 09/04/20 09/04/20 18:59 06:59 18:59 Intake Total 1109.04 0282.781 8688.901 Output Total 4080 815 465 Balance -2970.96 581.095 798.901 Weight 96.479 kg Intake: IV 1050 900 350 Sodium Chloride 0.9% 1, 1050 900 350 000 ml @ 75 mls/hr IV . [id number] [facility] Rx#:[id number] Intake, IV Titration 59.04 496.095 293.901 Amount Albumin Human 25% 50 ml 50 50 In Empty Bag 1 bag @ 50 mls/hr IVPB Q12HR [facility] Rx# :[id number] Norepinephrine 4 mg In 59.04 446.095 143.901 Sodium Chloride 0.9% 250 ml @ 0.05 MCG/KG/MIN 18. 802 mls/hr IV .[id number] [facility] Rx#:[id number] cefTRIAXone 1 gm In 100 Sodium Chloride 0.9% 50 ml @ 100 mls/hr IVPB Q24HR [facility] Rx#:[id number] Blood Product 620 Rc As-1 Unit 310 [id number] Output: Urine 875 815 465 Emesis 5 Other 3200 Other: Voiding Method Indwelling Catheter Indwelling Catheter Indwelling Catheter - Exam No acute distress, oriented 3. Patient on nasal O2 at 2 L/m. The patient is very pale, and very chronically ill appearing. HEENT examination is grossly unremarkable. Mucous membranes are moist. No oral lesions. Neck supple. Full range of motion. No adenopathy thyromegaly or neck vein distention. Cardiovascular examination reveals regular rhythm rate. S1-S2 normal. No S3 or S4. No discernible murmur noted. Heart sounds are distant. Heart rate 123 bpm. Lungs reveal mostly clear breath sounds. A few scattered rhonchi are noted. No wheezes or crackles. Breath sounds equal bilaterally. Abdomen very distended. Bowel sounds are not noted. Mild abdominal tenderness. No mass. Extremities are intact. No cyanosis or clubbing. There is 1+ edema. It is pitting. Skin is without rash or lesion. Neurologic examination is brief but nonfocal. - Labs CBC & Chem 7: 09/04/20 04:45 09/04/20 04:45 Labs: Abnormal Lab Results - Last 24 Hours (Table) 09/04/20 09/04/20 09/04/20 Range/Units 04:45 04:45 06:54 WBC 107.0 H* (3.8-10.6) k/uL RBC 2.49 L (4.30-5.90) m/uL Hgb 6.9 L* (13.0-17.5) gm/dL Hct 22.3 L (39.0-53.0) % MCHC 30.7 L (31.0-37.0) g/dL RDW 19.1 H (11.5-15.5) % Plt Count 100 L (150-450) k/uL Neutrophils # (Manual) 66.30 H (1.3-7.7) k/uL Monocytes # (Manual) 25.68 H (0-1.0) k/uL Eosinophils # (Manual) 1.07 H (0-0.7) k/uL Metamyelocytes # (Man) 5.35 H (0) k/uL Myelocytes # (Manual) 7.49 H (0) k/uL Promyelocytes # (Man) 2.14 H (0) k/uL Nucleated RBCs 4 H (0-0) /100 WBC Sodium 127 L (137-145) mmol/L Potassium 5.2 H (3.5-5.1) mmol/L Carbon Dioxide 19 L (22-30) mmol/L BUN 62 H (9-20) mg/dL Creatinine 2.98 H (0.66-1.25) mg/dL Glucose 107 H (74-99) mg/dL Calcium 8.0 L (8.4-10.2) mg/dL Total Bilirubin 4.9 H (0.2-1.3) mg/dL AST 173 H (17-59) U/L Alkaline Phosphatase 223 H (38-126) U/L Total Protein 5.0 L (6.3-8.2) g/dL Albumin 2.4 L (3.5-5.0) g/dL Urine Protein (Negative) Urine Blood (Negative) Ur Leukocyte Esterase (Negative) Urine RBC (0-5) /hpf Urine WBC (0-5) /hpf Amorphous Sediment (None) /hpf Urine Bacteria (None) /hpf Hyaline Casts (0-2) /lpf Urine Mucus (None) /hpf Urine Sperm (None) /hpf Crossmatch See Detail 09/04/20 Range/Units 12:02 WBC (3.8-10.6) k/uL RBC (4.30-5.90) m/uL Hgb (13.0-17.5) gm/dL Hct (39.0-53.0) % MCHC (31.0-37.0) g/dL RDW (11.5-15.5) % Plt Count (150-450) k/uL Neutrophils # (Manual) (1.3-7.7) k/uL Monocytes # (Manual) (0-1.0) k/uL Eosinophils # (Manual) (0-0.7) k/uL Metamyelocytes # (Man) (0) k/uL Myelocytes # (Manual) (0) k/uL Promyelocytes # (Man) (0) k/uL Nucleated RBCs (0-0) /100 WBC Sodium (137-145) mmol/L Potassium (3.5-5.1) mmol/L Carbon Dioxide (22-30) mmol/L BUN (9-20) mg/dL Creatinine (0.66-1.25) mg/dL Glucose (74-99) mg/dL Calcium (8.4-10.2) mg/dL Total Bilirubin (0.2-1.3) mg/dL AST (17-59) U/L Alkaline Phosphatase (38-126) U/L Total Protein (6.3-8.2) g/dL Albumin (3.5-5.0) g/dL Urine Protein 1+ H (Negative) Urine Blood Large H (Negative) Ur Leukocyte Esterase Large H (Negative) Urine RBC 66 H (0-5) /hpf Urine WBC 41 H (0-5) /hpf Amorphous Sediment Occasional H (None) /hpf Urine Bacteria Rare H (None) /hpf Hyaline Casts 10 H (0-2) /lpf Urine Mucus Rare H (None) /hpf Urine Sperm Occasional H (None) /hpf Crossmatch Microbiology - Last 24 Hours (Table) 08/30/20 15:15 Anaerobic Culture - Final Ascites Fluid 08/30/20 14:45 Blood Culture - Preliminary Blood No Growth after 96 hours 08/30/20 14:30 Blood Culture - Preliminary Blood No Growth after 96 hours 08/30/20 15:15 Gram Stain - Final Ascites Fluid Body Fluid Culture - Final Assessment and Plan Assessment: Chronic alcoholic liver disease with alcoholic cirrhosis. Previous history of heavy alcohol consumption, although patient states he has not had anything to drink in one year. Severe abdominal ascites, status post high volume paracentesis on 08/30/2020. Repeat paracentesis abdominis, on 09/01/2020, with 12 L being removed. Third paracentesis performed on 09/03/2020, with 3.2 L removed. Anemia of chronic disease. Abdominal compartment syndrome (ACS). 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 Mild alcohol induced coagulopathy. Hypovolemic hyponatremia. Chronic kidney disease. Non-anion gap metabolic acidosis. Hyperbilirubinemia. Chronic constipation. MELD score is 19, suggesting a 6%, 3 month mortality. Plan: Plan dated 09/04/2020. The patient is very acutely ill. He is very pale today. He'll receive 1 unit of blood for hemoglobin of 6.9. The patient's norepinephrine dose is currently at 11 mcg/m. That's a double what it was yesterday. He did have a paracentesis performed yesterday on September 03, and 3.2 L was removed. Also, his white blood count has climbed to 107,000. Hematology will be asked to see the patient. The patient is a DO NOT RESUSCITATE. We did have a conversation with him today about CODE STATUS. He would not want to be on life support. I think that's a good decision given his chronic health issues. Additional recommendations and suggestions are forthcoming. Prognosis is very poor. Time with Patient: Greater than 30
--- NOTE | 2020-09-04 17:18 | P.CRDCN ---
History of Present Illness History of present illness: HISTORY OF PRESENTING ILLNESS This is a pleasant 55-year-old male without significant prior medical history and who had not seen a doctor regularly. Patient presented on January 28 secondary to chest pain, abdominal pain, abdominal distention, nausea, shortness breath and lower extremity edema. Patient is currently lethargic in the ICU and most of history is obtained per chart. Patient was noted to have a history of alcohol abuse and to be in liver failure. He did have paracentesis performed on January 28 with 8 L removed. He was transferred to the ICU and placed on levophed. He is found to have ascites, concern of abdominal compartment syndrome, alcohol induced bone marrow suppression, hyponatremia, CKD. Unfortunately he has deteriorated in the last 24 hours and was found to be in new A. fib with RVR. His hemoglobin has decreased from 11-7.9-6.9. Per nursing he has not had a bowel movement and no obvious GI bleed. His heart rates have currently been 110s to 130s. An echocardiogram has not been performed yet. Patient lethargic and not able to answer many questions. He denies any chest pain currently. DIAGNOSTICS EKG reveals sinus tachycardia at 101 bpm, normal axis, nonspecific T-wave inversions in the inferior leads and lateral leads. Chest xray subsegmental basilar atelectasis, hiatal hernia, correlate to exclude pneumonia. Laboratory reviewed, blood cell 107, hemoglobin 6.9, platelets 100, and 27, potassium 5.2, creatinine 2.98, AST 173, ALT 12, alk phos 223, bilirubin 4.9. Current cardiac medications include Midrin 10 mg, norepinephrine. REVIEW OF SYSTEMS At the time of my exam: Patient lethargic and unable to supply much of any history. He denies any chest pain and then fell back asleep PHYSICAL EXAMINATION Blood pressure 80/53 heart rate 131 afebrile and maintaining oxygen saturation on room air. CONSTITUTIONAL: Ill-appearing, lethargic, anasarca and ascites, mild jaundice HEENT: Head is normocephalic. Pupils are equal, round. Sclerae anicteric. Mucous membranes of the mouth are moist. No JVD. No carotid bruit. CHEST EXAMINATION: Lungs are clear to auscultation. No chest wall tenderness is noted on palpation or with deep breathing. HEART EXAMINATION: Irregularly irregular rate and rhythm, S1, S2 heard. No murmurs, gallops or rub. ABDOMEN: Soft, obese, ascites. Positive bowel sounds. EXTREMITIES: 2+ peripheral pulses, 2+ lower extremity edema and no calf tenderness. NEUROLOGIC EXAMINATION: Patient is lethargic but somewhat arousable ASSESSMENT 1. New-onset A. fib with RVR 2. Acute liver injury, likely alcoholic hepatitis 3. Alcohol abuse 4. Hepatorenal syndrome 5. Acute kidney injury 6. Encephalopathy 7. Abdominal ascites status post multiple paracentesis 8. Anemia which has been worsening, rule out acute blood loss anemia versus hemolysis. Status post 1 unit packed red blood cells today 9. Concern of abdominal compartment syndrome PLAN Patient recently made a no code by ICU which appears appropriate. Patient appears to be deteriorating from his alcoholic liver disease. Patient does have new onset of A. fib with mild RVR. Patient however remains on vasopressors and rate control will be difficult. Additionally most antiarrhythmics are affected by hepatic and renal secretion. Would continue with monitoring if heart rates are not overly fast and may consider Cardizem drip with up titration of n orepinephrine if needed. Prognosis grave. Past Medical History Past Medical History: No Reported History Additional Past Medical History / Comment(s): blindness, chronic back History of Any Multi-Drug Resistant Organisms: None Reported Past Surgical History: No Surgical Hx Reported Past Anesthesia/Blood Transfusion Reactions: No Reported Reaction Smoking Status: Current every day smoker - Past Family History Mother Family Medical History: Cancer Father Additional Family Medical History / Comment(s): staph infection Medications and Allergies Home Medications Medication Instructions Recorded Confirmed Type No Known Home Medications 08/30/20 08/30/20 History Allergies Allergy/AdvReac Type Severity Reaction Status Date / Time No Known Allergies Allergy Verified 08/30/20 12:13 Physical Exam Vitals: Vital Signs Temp Pulse Resp BP Pulse Ox 09/04/20 16:00 97.5 F L 128 H 14 84/58 95 09/04/20 15:30 126 H 12 83/51 95 09/04/20 15:00 125 H 16 78/53 94 L 09/04/20 14:30 125 H 716 H 90/55 96 09/04/20 14:00 122 H 12 84/49 96 09/04/20 13:30 131 H 13 80/50 95 09/04/20 13:00 125 H 16 89/56 96 09/04/20 12:30 131 H 24 93/64 96 09/04/20 12:00 97.6 F 123 H 11 L 83/61 95 09/04/20 11:30 121 H 12 88/49 96 09/04/20 11:20 97.8 F 122 H 7 L 88/49 96 09/04/20 11:00 123 H 12 82/53 96 09/04/20 10:30 128 H 16 87/52 96 09/04/20 10:00 123 H 16 84/52 96 09/04/20 09:30 114 H 16 96 09/04/20 09:25 97.6 F 124 H 12 85/54 96 09/04/20 09:00 124 H 12 85/54 97 09/04/20 08:55 97.7 F 118 H 16 83/52 97 09/04/20 08:45 97.5 F L 116 H 12 80/53 96 09/04/20 08:30 118 H 16 83/52 97 09/04/20 08:00 97.5 F L 116 H 12 80/53 96 09/04/20 07:30 116 H 16 86/52 96 09/04/20 07:00 130 H 14 92/53 95 09/04/20 06:30 129 H 11 L 80/45 96 09/04/20 06:00 122 H 14 85/49 96 09/04/20 05:30 118 H 17 81/53 95 09/04/20 05:00 112 H 12 83/51 96 09/04/20 04:30 101 H 18 86/57 95 09/04/20 04:00 97.8 F 122 H 14 87/54 96 09/04/20 03:30 120 H 18 88/53 96 09/04/20 03:00 86 20 98/54 96 09/04/20 02:30 88 16 96/56 97 09/04/20 02:00 89 20 94/54 97 09/04/20 01:30 89 22 80/50 96 09/04/20 01:00 90 18 86/47 97 09/04/20 00:30 92 16 90/55 97 09/04/20 00:00 98 F 92 18 95/53 96 09/03/20 23:30 88 20 100/57 97 01/16/21 23:00 89 18 88/51 97 09/03/20 22:30 83 17 88/52 96 09/03/20 22:02 22 96 09/03/20 22:00 88 20 82/54 97 09/03/20 21:30 92 18 91/52 97 09/03/20 21:00 95 16 85/50 96 09/03/20 20:30 92 18 84/52 97 09/03/20 20:00 97.8 F 89 16 88/59 97 09/03/20 19:30 97 14 87/61 09/03/20 19:00 95 10 L 96/57 95 09/03/20 18:30 89 17 91/53 97 09/03/20 18:00 92 18 100/58 09/03/20 17:30 93 17 90/60 Intake and Output 09/04/20 09/04/20 09/04/20 06:59 14:59 22:59 Intake Total 652.939 7647.901 100 Output Total 565 565 175 Balance 227.095 798.901 -75 Intake: IV 600 450 100 Sodium Chloride 0.9% 1, 600 450 100 000 ml @ 75 mls/hr IV . [id number] [facility] Rx#:[id number] Intake, IV Titration 192.095 293.901 Amount Albumin Human 25% 50 ml 50 In Empty Bag 1 bag @ 50 mls/hr IVPB Q12HR [facility] Rx# :[id number] Norepinephrine 4 mg In 192.095 143.901 Sodium Chloride 0.9% 250 ml @ 0.05 MCG/KG/MIN 18. 802 mls/hr IV .[id number] [facility] Rx#:[id number] cefTRIAXone 1 gm In 100 Sodium Chloride 0.9% 50 ml @ 100 mls/hr IVPB Q24HR [facility] Rx#:[id number] Blood Product 620 Rc As-1 Unit 310 [id number] Output: Urine 565 565 175 Other: Voiding Method Indwelling Catheter Indwelling Catheter Indwelling Catheter Weight 96.479 kg Results 09/04/20 04:45 09/04/20 04:45 Cardiac Enzymes 09/04/20 Range/Units 04:45 AST 173 H (17-59) U/L CBC 09/04/20 Range/Units 04:45 WBC 107.0 H* (3.8-10.6) k/uL RBC 2.49 L (4.30-5.90) m/uL Hgb 6.9 L* (13.0-17.5) gm/dL Hct 22.3 L (39.0-53.0) % Plt Count 100 L (150-450) k/uL Comprehensive Metabolic Panel 09/04/20 Range/Units 04:45 Sodium 127 L (137-145) mmol/L Potassium 5.2 H (3.5-5.1) mmol/L Chloride 101 (98-107) mmol/L Carbon Dioxide 19 L (22-30) mmol/L BUN 62 H (9-20) mg/dL Creatinine 2.98 H (0.66-1.25) mg/dL Glucose 107 H (74-99) mg/dL Calcium 8.0 L (8.4-10.2) mg/dL AST 173 H (17-59) U/L ALT 12 (4-49) U/L Alkaline Phosphatase 223 H (38-126) U/L Total Protein 5.0 L (6.3-8.2) g/dL Albumin 2.4 L (3.5-5.0) g/dL Current Medications Generic Name Dose Route Start Last Admin Trade Name Freq PRN Reason Stop Dose Admin Ceftriaxone Sodium 1 gm/ 50 mls @ 100 mls/hr 08/31/20 12:30 09/04/20 08:15 Sodium Chloride IVPB 100 mls/hr Q24HR [facility] Administration Norepinephrine Bitartrate 4 mg 254 mls @ 18.802 mls/hr 09/01/20 01:30 09/04/20 09:50 / Sodium Chloride IV 0.12 mcg/kg/min .[id number] [facility] 45.126 mls/hr Administration Protocol 0.05 MCG/KG/MIN Sodium Chloride 1,000 mls @ 50 mls/hr 09/04/20 08:00 09/04/20 08:00 Saline 0.9% IV 50 mls/hr .Q20H [facility] Administration Midodrine 10 mg 09/01/20 12:30 09/04/20 16:17 Midodrine 5 Mg Tab PO Not Given AC-TID [facility] Morphine Sulfate 4 mg 08/30/20 13:47 09/04/20 16:27 Morphine Sulfate 4 Mg/Ml Syringe IV 4 mg Q4HR PRN Administration Severe Pain Naloxone HCl 0.2 mg 08/30/20 13:47 Naloxone 0.4 Mg/Ml 1 Ml Vial IV Q2M PRN Opioid Reversal Octreotide Acetate 100 mcg 09/01/20 16:00 09/04/20 16:21 Octreotide 100 Mcg/Ml Inj SQ 100 mcg Q8HR [facility] Administration Ondansetron HCl 4 mg 08/31/20 09:13 09/03/20 22:15 Ondansetron 4 Mg/2 Ml Vial IVP 4 mg Q6HR PRN Administration Nausea And Vomiting Pantoprazole Sodium 40 mg 09/02/20 17:30 09/04/20 16:20 Pantoprazole 40 Mg Tablet PO Not Given AC-BID [facility] Polyethylene Glycol 17 gm 09/02/20 12:15 09/04/20 11:25 Polyethylene Glycol 3350 17 Gm Powd.Pack PO Not Given DAILY [facility] Tramadol HCl 50 mg 08/31/20 20:34 08/31/20 21:14 Tramadol 50 Mg Tab PO 50 mg TID PRN Administration Mild to Moderate Pain Intake and Output 09/04/20 09/04/20 09/04/20 06:59 14:59 22:59 Intake Total 022.810 7041.901 100 Output Total 565 565 175 Balance 227.095 798.901 -75 Intake: IV 600 450 100 Sodium Chloride 0.9% 1, 600 450 100 000 ml @ 75 mls/hr IV . [id number] [facility] Rx#:[id number] Intake, IV Titration 192.095 293.901 Amount Albumin Human 25% 50 ml 50 In Empty Bag 1 bag @ 50 mls/hr IVPB Q12HR [facility] Rx# :[id number] Norepinephrine 4 mg In 192.095 143.901 Sodium Chloride 0.9% 250 ml @ 0.05 MCG/KG/MIN 18. 802 mls/hr IV .[id number] [facility] Rx#:[id number] cefTRIAXone 1 gm In 100 Sodium Chloride 0.9% 50 ml @ 100 mls/hr IVPB Q24HR [facility] Rx#:[id number] Blood Product 620 Rc As-1 Unit 310 [id number] Output: Urine 565 565 175 Other: Voiding Method Indwelling Catheter Indwelling Catheter Indwelling Catheter Weight 96.479 kg 09/04/20 04:45 09/04/20 04:45
--- NOTE | 2020-09-04 19:51 | P.PN ---
Subjective Progress Note Date: 09/04/20 Principal diagnosis: Decompensated alcoholic cirrhosis, ascites, suspected hepatorenal syndrome, anemia Patient seen lying in bed with no acute complaints. The patient's CODE STATUS is Diaz to DO NOT RESUSCITATE today. Patient's hemoglobin has continued to fall with no signs or symptoms GI bleeding. Objective - Vital Signs Vital signs: Vital Signs Temp 97.8 F 09/04/20 11:20 Pulse 122 H 09/04/20 11:20 Resp 7 L 09/04/20 11:20 BP 88/49 09/04/20 11:20 Pulse Ox 96 09/04/20 11:20 Intake & Output 09/03/20 09/04/20 09/04/20 18:59 06:59 18:59 Intake Total 1109.04 1396.095 528.901 Output Total 4080 815 55 Balance -2970.96 581.095 473.901 Weight 96.479 kg Intake: IV 1050 900 75 Sodium Chloride 0.9% 1, 1050 900 75 000 ml @ 75 mls/hr IV . [id number] [facility] Rx#:[id number] Intake, IV Titration 59.04 496.095 143.901 Amount Albumin Human 25% 50 ml 50 In Empty Bag 1 bag @ 50 mls/hr IVPB Q12HR [facility] Rx# :[id number] Norepinephrine 4 mg In 59.04 446.095 143.901 Sodium Chloride 0.9% 250 ml @ 0.05 MCG/KG/MIN 18. 802 mls/hr IV .[id number] [facility] Rx#:[id number] Blood Product 310 Rc As-1 Unit 310 [id number] Output: Urine 875 815 55 Emesis 5 Other 3200 Other: Voiding Method Indwelling Catheter Indwelling Catheter - Exam On physical examination, patient appears comfortable in no apparent distress. HEAD: Normocephalic, atraumatic. EYES: No scleral icterus. No conjunctival injection. MOUTH: No lesions, tongue midline. NECK: Trachea midline, no gross abnormalities. CHEST: Decreased air entry in all lung gross. ABDOMEN: Soft, moderately distended. Bowel sounds are positive. Pronounced splenomegaly. No guarding or rigidity. EXTREMITIES: No pedal edema. SKIN: No rashes, no jaundice. NEUROLOGIC: Alert and oriented to person and place, no asterixis. No focal deficits. - Labs CBC & Chem 7: 09/04/20 04:45 09/04/20 04:45 Labs: Abnormal Lab Results - Last 24 Hours (Table) 09/04/20 09/04/20 09/04/20 Range/Units 04:45 04:45 06:54 WBC 107.0 H* (3.8-10.6) k/uL RBC 2.49 L (4.30-5.90) m/uL Hgb 6.9 L* (13.0-17.5) gm/dL Hct 22.3 L (39.0-53.0) % MCHC 30.7 L (31.0-37.0) g/dL RDW 19.1 H (11.5-15.5) % Plt Count 100 L (150-450) k/uL Neutrophils # (Manual) 66.30 H (1.3-7.7) k/uL Monocytes # (Manual) 25.68 H (0-1.0) k/uL Eosinophils # (Manual) 1.07 H (0-0.7) k/uL Metamyelocytes # (Man) 5.35 H (0) k/uL Myelocytes # (Manual) 7.49 H (0) k/uL Promyelocytes # (Man) 2.14 H (0) k/uL Nucleated RBCs 4 H (0-0) /100 WBC Sodium 127 L (137-145) mmol/L Potassium 5.2 H (3.5-5.1) mmol/L Carbon Dioxide 19 L (22-30) mmol/L BUN 62 H (9-20) mg/dL Creatinine 2.98 H (0.66-1.25) mg/dL Glucose 107 H (74-99) mg/dL Calcium 8.0 L (8.4-10.2) mg/dL Total Bilirubin 4.9 H (0.2-1.3) mg/dL AST 173 H (17-59) U/L Alkaline Phosphatase 223 H (38-126) U/L Total Protein 5.0 L (6.3-8.2) g/dL Albumin 2.4 L (3.5-5.0) g/dL Crossmatch See Detail Microbiology - Last 24 Hours (Table) 08/30/20 15:15 Anaerobic Culture - Final Ascites Fluid 08/30/20 14:45 Blood Culture - Preliminary Blood No Growth after 96 hours 08/30/20 14:30 Blood Culture - Preliminary Blood No Growth after 96 hours 08/30/20 15:15 Gram Stain - Final Ascites Fluid Body Fluid Culture - Final Assessment and Plan (1) Decompensated hepatic cirrhosis Narrative/Plan: 55-year-old male with a medical history significant for significant alcohol abuse for 40 years for which she has been sober for 1 year presented to the hospital due to abdominal distention, decreased oral intake and shortness of breath. Paracentesis was performed with 8.7 L of ascitic fluid removed, he is subsequently had 2 additional paracentesis. Suspicion is for decompensated alcoholic cirrhosis of the liver with new onset ascites. No prior history of encephalopathy or GI bleed. Patient's care is somewhat complicated as he has had hyponatremia and elevated creatinine with concerns for hepatorenal syndrome currently receiving octreotide, midodrine and albumin. Patient is also developed hematologic abnormalities with marked. Leukocytosis and anemia, although there continues to be no signs or symptoms of GI bleeding. Current Visit: Yes Status: Acute Code(s): K72.90 - HEPATIC FAILURE, UNSPECIFIED WITHOUT COMA; K74.60 - UNSPECIFIED CIRRHOSIS OF LIVER SNOMED Code(s): 452151945 (2) Abdominal ascites Current Visit: Yes Status: Acute Code(s): R18.8 - OTHER ASCITES SNOMED Code(s): 150416987 Plan: Supportive care Okay for sodium restricted diet as tolerated Continue alcohol abstinence Nephrology service consulted and managing fluid status Continue Midodrine, octreotide and albumin for suspected hepatorenal syndrome Sodium restricted diet discussed with the patient at length Continue empiric ceftriaxone although fluid studies were not suggestive of SBP Bruce leukocytosis and development of anemia, in the absence of any signs or symptoms of GI bleeding, hematology services been consult dated for further evaluation Overall poor prognosis given complex medical problems, if patient's labs and clinical picture do not improve may consider transfer to tertiary center for evaluation by hepatology service Thank you for allowing us to participate in the care of the patient
[2020-09-04] MEDS: ONDANSETRON 4 MG/2 ML VIAL IVP PRN (19:59)
--- NOTE | 2020-09-04 20:24 | P.PN ---
Subjective Progress Note Date: 09/03/20 Principal diagnosis: Ascites Patient is a 55-year-old male with a known history of alcohol abuse currently not drinking, everyday smoker, blindness and chronic back pain presents ER with complaints of shortness of breath, abdominal pain and increased girth. Patient was drinking heavily and has been abstinent for the past 1 year. Denied any complaints of fever or chills. No chest pain. No recent illnesses. Patient is also complaining of increased lower action to swelling. Chest x-ray showed suspected bilateral pleural effusions and associated atelectasis, correlate to exclude pneumonia. Hyperlipidemia. Ultrasound of the abdomen showed moderate to large abdominal ascites throughout the abdomen. Hepatomegaly with cirrhotic morphology of the liver. No focal lesion identified. No gallstones or biliary ductal dilatation. Severe splenomegaly. Laboratory data showed no obesity 19.9, hemoglobin 15.0 and platelets 126 INR 1.3 Sodium 126, potassium 5.2, chloride 93, BUN 38 and creatinine 1.96 ProBNP 3480, all within 3.4 Patient is status post paracentesis with 8.9 L of fluid removal. Patient was given a dose of ceftriaxone in the ER. Ascites fluid analysis showed 275 nucleated cells with 14 polynuclear WBCs. 08/31/2020 Patient is currently lying in the bed. Complains of generalized weakness and dizzy. SBP in the 80s. Patient was given 500 cc of normal saline fluid bolus. Patient has been afebrile. No complaints of chest pain. Shortness of breath is better. Laboratory data showed WBC 15.0 improved from 9.9 yesterday. Hemoglobin 11.4 and platelets 99 Sodium level dropped to 121 and chloride 91, BUN 48 and increase it to creatinine 2.84. Lasix has been discontinued. Patient has been afebrile. No nausea or vomiting. Started on low-salt diet. GI is following. 09/01/2020 Patient was transferred to MICU last night due to hypotension with blood pressure not improving with fluid boluses. Patient is awake alert and oriented but feels very weak. Ultrasound of the abdomen showed moderate to large ascites and repeat paracentesis was ordered. Patient is undergoing to be paracentesis now. Monitor blood pressure closely and GI is following. 09/02/2020 Patient is currently in the MICU and resting in the bed comfortably. Patient was given morphine for abdominal pain.. Otherwise still requiring pressor support. Started on albumin dose. Patient has been afebrile. Currently requiring 2 L oxygen with another cannula. Laboratory data showed WBC 33.9, hemoglobin 11.0 and platelets 91 sodium level is 123 and potassium 5.2 and BUN 58 and creatinine 3.6. Patient was given a dose of Tolvapan due to hyponatremia. Nephrology and GI is on board. 09/03/2020 Patient is currently lying in the bed. Denied any complaints of chest pain or worsening shortness of blood. Continued on pain medications for abdominal pain. Patient has been afebrile. Remains on pressor support due to hypotension. Patient had third paracentesis done today. Laboratory test showed WBC count going up to 56.0, hemoglobin 7.9 and platelets 73 with 28.56 neutrophils. Sodium 130 potassium 3.8 chloride 108, BUN 46 and creatinine 2.41 and calcium 5.9 Chest x-ray showed hiatal hernia and bibasilar atelectasis. Overall prognosis very poor. GI and pulmonary and nephrology is on board. Current medications reviewed. Objective - Vital Signs Vital signs: Vital Signs Temp 97.8 F 09/03/20 20:00 Pulse 88 09/03/20 22:00 Resp 20 09/03/20 22:00 BP 82/54 09/03/20 22:00 Pulse Ox 97 09/03/20 22:00 Intake & Output 09/03/20 09/03/20 09/04/20 06:59 18:59 06:59 Intake Total 2504.859 1109.04 604 Output Total 1520 4080 250 Balance 984.859 -2970.96 354 Weight 98.2 kg Intake: IV 1800 1050 300 Sodium Chloride 0.9% 1, 1800 1050 300 000 ml @ 75 mls/hr IV . [id number] [facility] Rx#:[id number] Intake, IV Titration 224.859 59.04 304 Amount Albumin Human 25% 50 ml 50 50 In Empty Bag 1 bag @ 50 mls/hr IVPB Q12HR [facility] Rx# :[id number] Norepinephrine 4 mg In 174.859 59.04 254 Sodium Chloride 0.9% 250 ml @ 0.05 MCG/KG/MIN 18. 802 mls/hr IV .[id number] [facility] Rx#:[id number] Oral 480 Output: Urine 1520 875 250 Emesis 5 Other 3200 Other: Voiding Method Indwelling Catheter Indwelling Catheter Indwelling Catheter - Exam PHYSICAL EXAMINATION: Patient is lying in the bed comfortably, no acute distress, awake alert and oriented.. HEENT: Normocephalic. Neck is supple. Pupils reactive. Nostrils clear. Oral cavity is moist. Ears reveal no drainage. Neck reveals no JVD, carotid bruits, or thyromegaly. CHEST EXAMINATION: Trachea is central. Symmetrical expansion. Bibasilar diminished air entry, no wheezing.. CARDIAC: Normal S1, S2 with no gallops. No murmurs ABDOMEN: Soft. Severely distended with ascites and fluid thrill, nontender. Bowel sounds present. Organomegaly could not be assessed. No abdominal bruits. Extremities: 3+ bilateral pedal edema. No clubbing or cyanosis Neurologically awake, alert, oriented x3 with well-coordinated movements. No focal deficits noted Skin: No rash or skin lesions. Psychiatric: Coperative. Nonsuicidal Musculoskeletal: No joint swelling or deformity. Normal range of motion. - Labs CBC & Chem 7: 09/04/20 04:45 09/04/20 04:45 Labs: Abnormal Lab Results - Last 24 Hours (Table) 09/03/20 09/03/20 Range/Units 04:23 05:35 WBC 56.0 H* (3.8-10.6) k/uL RBC 2.81 L (4.30-5.90) m/uL Hgb 7.9 L D (13.0-17.5) gm/dL Hct 23.8 L (39.0-53.0) % RDW 16.7 H (11.5-15.5) % Plt Count 73 L (150-450) k/uL Blast Cells % 2 H* % Neutrophils # (Manual) 28.56 H (1.3-7.7) k/uL Monocytes # (Manual) 17.36 H (0-1.0) k/uL Metamyelocytes # (Man) 1.12 H (0) k/uL Myelocytes # (Manual) 5.60 H (0) k/uL Blast Cells # (Man) 1.12 H (0) k/uL Nucleated RBCs 1 H (0-0) /100 WBC Sodium 130 L (137-145) mmol/L Chloride 108 H (98-107) mmol/L Carbon Dioxide 18 L (22-30) mmol/L BUN 46 H (9-20) mg/dL Creatinine 2.41 H (0.66-1.25) mg/dL Calcium 5.9 L* (8.4-10.2) mg/dL Total Bilirubin 2.6 H (0.2-1.3) mg/dL AST 64 H (17-59) U/L Total Protein 3.8 L (6.3-8.2) g/dL Albumin 1.7 L (3.5-5.0) g/dL Microbiology - Last 24 Hours (Table) 08/30/20 15:15 Anaerobic Culture - Final Ascites Fluid 08/30/20 14:45 Blood Culture - Preliminary Blood No Growth after 96 hours 08/30/20 14:30 Blood Culture - Preliminary Blood No Growth after 96 hours 08/30/20 15:15 Gram Stain - Final Ascites Fluid Body Fluid Culture - Final Assessment and Plan Assessment: Shortness of breath secondary to tense ascites Ascites status post paracentesis with 8.9 L fluid removal. Hypotension likely due to large volume paracentesis and hypoalbuminemia.Requiring pressor support. Acute kidney injury secondary to ATN, hypotension with possible underlying CK D/hepatorenal syndrome Metabolic acidosis secondary to acute kidney injury Leukocytosis. Possible SBP History of severe alcohol abuse and has been abstinent for the past 1 year Liver cirrhosis likely alcoholic Hypervolemic hyponatremia Hypoalbuminemia Thrombocytopenia due to liver cirrhosis Severe splenomegaly DVT prophylaxis Plan: Patient is status post paracentesis and fluid removal 3. Continue with pressor support.. Continue to monitor blood pressure and Gentle IV hydration.. Monitor renal function. Continue with antibiotics in the form of ceftriaxone. Monitor renal function. Gastroenterology and Nephrology is following. negative hepatitis panel. ordered Alpha fetoprotein level-not elevated. Cultures negative so far. Prognosis is guarded at this time. Time with Patient: Greater than 30
--- NOTE | 2020-09-04 20:29 | P.PN ---
Subjective Progress Note Date: 09/04/20 Principal diagnosis: Ascites Patient is a 55-year-old male with a known history of alcohol abuse currently not drinking, everyday smoker, blindness and chronic back pain presents ER with complaints of shortness of breath, abdominal pain and increased girth. Patient was drinking heavily and has been abstinent for the past 1 year. Denied any complaints of fever or chills. No chest pain. No recent illnesses. Patient is also complaining of increased lower action to swelling. Chest x-ray showed suspected bilateral pleural effusions and associated atelectasis, correlate to exclude pneumonia. Hyperlipidemia. Ultrasound of the abdomen showed moderate to large abdominal ascites throughout the abdomen. Hepatomegaly with cirrhotic morphology of the liver. No focal lesion identified. No gallstones or biliary ductal dilatation. Severe splenomegaly. Laboratory data showed no obesity 19.9, hemoglobin 15.0 and platelets 126 INR 1.3 Sodium 126, potassium 5.2, chloride 93, BUN 38 and creatinine 1.96 ProBNP 3480, all within 3.4 Patient is status post paracentesis with 8.9 L of fluid removal. Patient was given a dose of ceftriaxone in the ER. Ascites fluid analysis showed 275 nucleated cells with 14 polynuclear WBCs. 08/31/2020 Patient is currently lying in the bed. Complains of generalized weakness and dizzy. SBP in the 80s. Patient was given 500 cc of normal saline fluid bolus. Patient has been afebrile. No complaints of chest pain. Shortness of breath is better. Laboratory data showed WBC 15.0 improved from 9.9 yesterday. Hemoglobin 11.4 and platelets 99 Sodium level dropped to 121 and chloride 91, BUN 48 and increase it to creatinine 2.84. Lasix has been discontinued. Patient has been afebrile. No nausea or vomiting. Started on low-salt diet. GI is following. 09/01/2020 Patient was transferred to MICU last night due to hypotension with blood pressure not improving with fluid boluses. Patient is awake alert and oriented but feels very weak. Ultrasound of the abdomen showed moderate to large ascites and repeat paracentesis was ordered. Patient is undergoing to be paracentesis now. Monitor blood pressure closely and GI is following. 09/02/2020 Patient is currently in the MICU and resting in the bed comfortably. Patient was given morphine for abdominal pain.. Otherwise still requiring pressor support. Started on albumin dose. Patient has been afebrile. Currently requiring 2 L oxygen with another cannula. Laboratory data showed WBC 33.9, hemoglobin 11.0 and platelets 91 sodium level is 123 and potassium 5.2 and BUN 58 and creatinine 3.6. Patient was given a dose of Tolvapan due to hyponatremia. Nephrology and GI is on board. 09/03/2020 Patient is currently lying in the bed. Denied any complaints of chest pain or worsening shortness of blood. Continued on pain medications for abdominal pain. Patient has been afebrile. Remains on pressor support due to hypotension. Patient had third paracentesis done today. Laboratory test showed WBC count going up to 56.0, hemoglobin 7.9 and platelets 73 with 28.56 neutrophils. Sodium 130 potassium 3.8 chloride 108, BUN 46 and creatinine 2.41 and calcium 5.9 Chest x-ray showed hiatal hernia and bibasilar atelectasis. Overall prognosis very poor. GI and pulmonary and nephrology is on board. 09/04/2020 Patient is lying in the bed. awake and alert, lethargic. . Remains in the MICU and still requiring pressor support. Afebrile and denied any worsening pain. Laboratory data showed WBC count went up to 1 was 7.0, hemoglobin 6.9 and 1 unit of PRBC transfusion was ordered. Platelet count is 100 Sodium level 127 potassium 5.2, BUN 62 and creatinine 2.98 and calcium level up to 8.0 Current medications reviewed. Objective - Vital Signs Vital signs: Vital Signs Temp 97.6 F 09/04/20 12:00 Pulse 131 H 09/04/20 13:30 Resp 13 09/04/20 13:30 BP 80/50 09/04/20 13:30 Pulse Ox 95 09/04/20 13:30 Intake & Output 09/03/20 09/04/20 09/04/20 18:59 06:59 18:59 Intake Total 1109.04 9085.375 1900.901 Output Total 4080 815 565 Balance -2970.96 581.095 748.901 Weight 96.479 kg Intake: IV 1050 900 400 Sodium Chloride 0.9% 1, 1050 900 400 000 ml @ 75 mls/hr IV . [id number] [facility] Rx#:[id number] Intake, IV Titration 59.04 496.095 293.901 Amount Albumin Human 25% 50 ml 50 50 In Empty Bag 1 bag @ 50 mls/hr IVPB Q12HR [facility] Rx# :[id number] Norepinephrine 4 mg In 59.04 446.095 143.901 Sodium Chloride 0.9% 250 ml @ 0.05 MCG/KG/MIN 18. 802 mls/hr IV .[id number] [facility] Rx#:[id number] cefTRIAXone 1 gm In 100 Sodium Chloride 0.9% 50 ml @ 100 mls/hr IVPB Q24HR [facility] Rx#:[id number] Blood Product 620 Rc As-1 Unit 310 [id number] Output: Urine 875 815 565 Emesis 5 Other 3200 Other: Voiding Method Indwelling Catheter Indwelling Catheter Indwelling Catheter - Exam PHYSICAL EXAMINATION: Patient is lying in the bed comfortably, no acute distress, awake alert and oriented.. HEENT: Normocephalic. Neck is supple. Pupils reactive. Nostrils clear. Oral cavity is moist. Ears reveal no drainage. Neck reveals no JVD, carotid bruits, or thyromegaly. CHEST EXAMINATION: Trachea is central. Symmetrical expansion. Bibasilar diminished air entry, no wheezing.. CARDIAC: Normal S1, S2 with no gallops. No murmurs ABDOMEN: Soft. Severely distended with ascites and fluid thrill, nontender. Bowel sounds present. Organomegaly could not be assessed. No abdominal bruits. Extremities: 3+ bilateral pedal edema. No clubbing or cyanosis Neurologically awake, alert, oriented x3 with well-coordinated movements. No focal deficits noted Skin: No rash or skin lesions. Psychiatric: Coperative. Nonsuicidal Musculoskeletal: No joint swelling or deformity. Normal range of motion. - Labs CBC & Chem 7: 09/04/20 04:45 09/04/20 04:45 Labs: Abnormal Lab Results - Last 24 Hours (Table) 09/04/20 09/04/20 09/04/20 Range/Units 04:45 04:45 06:54 WBC 107.0 H* (3.8-10.6) k/uL RBC 2.49 L (4.30-5.90) m/uL Hgb 6.9 L* (13.0-17.5) gm/dL Hct 22.3 L (39.0-53.0) % MCHC 30.7 L (31.0-37.0) g/dL RDW 19.1 H (11.5-15.5) % Plt Count 100 L (150-450) k/uL Neutrophils # (Manual) 66.30 H (1.3-7.7) k/uL Monocytes # (Manual) 25.68 H (0-1.0) k/uL Eosinophils # (Manual) 1.07 H (0-0.7) k/uL Metamyelocytes # (Man) 5.35 H (0) k/uL Myelocytes # (Manual) 7.49 H (0) k/uL Promyelocytes # (Man) 2.14 H (0) k/uL Nucleated RBCs 4 H (0-0) /100 WBC Sodium 127 L (137-145) mmol/L Potassium 5.2 H (3.5-5.1) mmol/L Carbon Dioxide 19 L (22-30) mmol/L BUN 62 H (9-20) mg/dL Creatinine 2.98 H (0.66-1.25) mg/dL Glucose 107 H (74-99) mg/dL Calcium 8.0 L (8.4-10.2) mg/dL Total Bilirubin 4.9 H (0.2-1.3) mg/dL AST 173 H (17-59) U/L Alkaline Phosphatase 223 H (38-126) U/L Total Protein 5.0 L (6.3-8.2) g/dL Albumin 2.4 L (3.5-5.0) g/dL Urine Protein (Negative) Urine Blood (Negative) Ur Leukocyte Esterase (Negative) Urine RBC (0-5) /hpf Urine WBC (0-5) /hpf Amorphous Sediment (None) /hpf Urine Bacteria (None) /hpf Hyaline Casts (0-2) /lpf Urine Mucus (None) /hpf Urine Sperm (None) /hpf Crossmatch See Detail 09/04/20 Range/Units 12:02 WBC (3.8-10.6) k/uL RBC (4.30-5.90) m/uL Hgb (13.0-17.5) gm/dL Hct (39.0-53.0) % MCHC (31.0-37.0) g/dL RDW (11.5-15.5) % Plt Count (150-450) k/uL Neutrophils # (Manual) (1.3-7.7) k/uL Monocytes # (Manual) (0-1.0) k/uL Eosinophils # (Manual) (0-0.7) k/uL Metamyelocytes # (Man) (0) k/uL Myelocytes # (Manual) (0) k/uL Promyelocytes # (Man) (0) k/uL Nucleated RBCs (0-0) /100 WBC Sodium (137-145) mmol/L Potassium (3.5-5.1) mmol/L Carbon Dioxide (22-30) mmol/L BUN (9-20) mg/dL Creatinine (0.66-1.25) mg/dL Glucose (74-99) mg/dL Calcium (8.4-10.2) mg/dL Total Bilirubin (0.2-1.3) mg/dL AST (17-59) U/L Alkaline Phosphatase (38-126) U/L Total Protein (6.3-8.2) g/dL Albumin (3.5-5.0) g/dL Urine Protein 1+ H (Negative) Urine Blood Large H (Negative) Ur Leukocyte Esterase Large H (Negative) Urine RBC 66 H (0-5) /hpf Urine WBC 41 H (0-5) /hpf Amorphous Sediment Occasional H (None) /hpf Urine Bacteria Rare H (None) /hpf Hyaline Casts 10 H (0-2) /lpf Urine Mucus Rare H (None) /hpf Urine Sperm Occasional H (None) /hpf Crossmatch Microbiology - Last 24 Hours (Table) 08/30/20 15:15 Anaerobic Culture - Final Ascites Fluid 08/30/20 14:45 Blood Culture - Preliminary Blood No Growth after 96 hours 08/30/20 14:30 Blood Culture - Preliminary Blood No Growth after 96 hours 08/30/20 15:15 Gram Stain - Final Ascites Fluid Body Fluid Culture - Final Assessment and Plan Assessment: Shortness of breath secondary to tense ascites Ascites status post paracentesis x 3. Hypotension likely due to large volume paracentesis and hypoalbuminemia.Requiring pressor support. Chronic alcoholic liver cirrhosis Acute kidney injury secondary to ATN, hypotension with possible underlying CK D/hepatorenal syndrome Metabolic acidosis secondary to acute kidney injury Leukocytosis. Possible SBP History of severe alcohol abuse and has been abstinent for the past 1 year Liver cirrhosis likely alcoholic Hypervolemic hyponatremia Hypoalbuminemia Thrombocytopenia due to liver cirrhosis Severe splenomegaly DVT prophylaxis Plan: Patient is status post paracentesis and fluid removal 3. Continue with pressor support.. Continue to monitor blood pressure . on midodrine.. Monitor renal function. Continue with antibiotics in the form of ceftriaxone. Gastroenterology and Nephrology is following. negative hepatitis panel. ordered Alpha fetoprotein level-not elevated. Cultures negative so far. Prognosis is poor at this time. CODE STATUS has been changed to DNR/DNI. Time with Patient: Greater than 30
[2020-09-05] MEDS: NOREPINEPHRINE 4 MG in SODIUM CHLORIDE 0.9% 250 ML IV SCH ×4 (00:04→13:48)
[2020-09-05 04:35] LABS: Anisocytosis Moderate; HCT 24.3 % (39.0-53.0); HGB 7.8 gm/dL (13.0-17.5); Hypochromasia Marked; MCH 29.5 pg (25.0-35.0); MCHC 32.1 g/dL (31.0-37.0); MCV 91.7 fL (80.0-100.0); Macrocytosis Slight; Mean Platelet Volume 13.4; Poikilocytosis Slight; RBC 2.64 m/uL (4.30-5.90); RDW 21.2 % (11.5-15.5)
[2020-09-05 04:48] LABS: Albumin 2.4 g/dL (3.5-5.0); Bilirubin, Conjugated 1.9 mg/dL (0.0-0.3); Bilirubin, Delta 1.2 mg/dL (0.0-0.2); Bilirubin,Unconjugated 1.5 mg/dL (0.0-1.1); Platelet Count 96 k/uL (150-450); Potassium 5.9 mmol/L (3.5-5.1); Total Bilirubin 4.6 mg/dL (0.2-1.3); Total Protein 5.1 g/dL (6.3-8.2)
[2020-09-05 04:51] LABS: INR 1.4 (<1.2); Prothrombin Time 14.2 sec (9.0-12.0)
[2020-09-05 05:29] LABS: Band Neutrophils % 1 %; Myelocytes % 6 %; Neutrophils % (M) 65 %; Nucleated Red Blood Cells 2 /100 WBC (0-0); Total Cells Counted 200
[2020-09-05 05:30] LABS: Blast Cells # (M) 3.18 k/uL (0); Lymphocytes # (M) 6.37 k/uL (1.0-4.8); Monocytes # (M) 36.62 k/uL (0-1.0); Myelocytes # (M) 9.55 k/uL (0); Toxic Vacuolation Present; WBC 159.2 k/uL (3.8-10.6)
[2020-09-05 05:31] LABS: Large Platelets Present
[2020-09-05] MEDS: MIDODRINE 5 MG TAB PO SCH ×3 (05:46→15:22)
[2020-09-05] MEDS: PANTOPRAZOLE 40 MG TABLET PO SCH ×2 (05:46→15:22)
--- NOTE | 2020-09-05 06:39 | P.PN ---
Subjective Progress Note Date: 09/05/20 55-year-old male who apparently does not see a doctor on a regular basis. The patient presented to the emergency room on August 30 at 1045, with multiple complaints including chest pain, abdominal pain, abdominal distention, nausea, lower extremity edema, and shortness of breath. The patient is a recovering alcoholic and states he has not had anything to drink in one year. He does admit to smoking on a daily basis. He apparently does not take any medications on a regular basis although one point, he was on Abilify, and Zoloft. He has not been feeling well for a couple weeks or so prior to this admission. On this admission, he was seen by interventional radiology and had a high volume par acentesis. On August 30, 8 L was removed. He did have albumin replacement therapy. The patient came to the intensive care unit on August 31 for low blood pressure. An "A" was called last night and the patient was transferred down after one of the ICU The patient is also getting norepinephrine at 11 mcg/m. White count which is 107,000. Discussion with the patient was done about CODE STATUS. He would not want to be on life support. The patient's is anemic with a hemoglobin was 6.9. He received 1 unit of blood. The patient's platelet count was 100,000. The sodium was 127, BUN 62, and creatinine 2.98. The patient also has developed an [place]. The blood cultures are negative and the ascitic fluid culture was also negative for any growth. The patient is currently on IV Rocephin as an empiric antibiotic. On 09/05/2020, the patient is lethargic and sleepy. He is still tachycardic and heart disease in the 120 range and the patient is still in atrial fibrillation. IV fluids running in the form of normal saline at the rate of 50 mL an hour and the patient is on norepinephrine drip at 0. I micrograms per kilogram per minute. Urine output is diminished. He does have increased edema in lower extremities. He is not answering questions much. White cell count is up 150k and he is afebrile. Serum bicarb is down to 17. No reported diarrhea. No reported abdominal distention. All of his cultures came back negative. Objective - Vital Signs Vital signs: Vital Signs Temp 98.2 F 09/05/20 04:00 Pulse 122 H 09/05/20 05:30 Resp 12 09/05/20 05:30 BP 85/57 09/05/20 05:30 Pulse Ox 94 L 09/05/20 05:30 Intake & Output 09/04/20 09/04/20 09/05/20 06:59 18:59 06:59 Intake Total 5887.889 0414.901 927.693 Output Total 815 830 345 Balance 581.095 987.901 582.693 Weight 96.479 kg Intake: IV 900 650 500 Sodium Chloride 0.9% 1, 900 650 500 000 ml @ 75 mls/hr IV . [id number] [facility] Rx#:[id number] Intake, IV Titration 496.095 547.901 427.693 Amount Albumin Human 25% 50 ml 50 50 In Empty Bag 1 bag @ 50 mls/hr IVPB Q12HR [facility] Rx# :[id number] Norepinephrine 4 mg In 446.095 397.901 427.693 Sodium Chloride 0.9% 250 ml @ 0.05 MCG/KG/MIN 18. 802 mls/hr IV .[id number] [facility] Rx#:[id number] cefTRIAXone 1 gm In 100 Sodium Chloride 0.9% 50 ml @ 100 mls/hr IVPB Q24HR [facility] Rx#:[id number] Blood Product 620 Rc As-1 Unit 310 [id number] Output: Urine 815 830 345 Other: Voiding Method Indwelling Catheter Indwelling Catheter Indwelling Catheter - Exam No acute distress, oriented 3. Patient on nasal O2 at 2 L/m. The patient is very pale, and very chronically ill appearing. HEENT examination is grossly unremarkable. Mucous membranes are moist. No oral lesions. Neck supple. Full range of motion. No adenopathy thyromegaly or neck vein distention. Cardiovascular examination reveals regular rhythm rate. S1-S2 normal. No S3 or S4. No discernible murmur noted. Heart sounds are distant. Lungs reveal mostly clear breath sounds. A few scattered rhonchi are noted. No wheezes or crackles. Breath sounds equal bilaterally. Abdomen very distended. Bowel sounds are not noted. Mild abdominal tenderness. No mass. Extremities are intact. No cyanosis or clubbing. There is 1+ edema. It is pitting. Skin is without rash or lesion. Neurologic examination is brief but nonfocal. - Labs CBC & Chem 7: 09/05/20 04:19 09/05/20 04:19 Labs: Abnormal Lab Results - Last 24 Hours (Table) 09/04/20 09/04/20 09/04/20 Range/Units 04:45 06:54 12:02 WBC 107.0 H* (3.8-10.6) k/uL RBC (4.30-5.90) m/uL Hgb (13.0-17.5) gm/dL Hct (39.0-53.0) % RDW (11.5-15.5) % Plt Count (150-450) k/uL Blast Cells % % Neutrophils # (Manual) 66.30 H (1.3-7.7) k/uL Lymphocytes # (Manual) (1.0-4.8) k/uL Monocytes # (Manual) 25.68 H (0-1.0) k/uL Eosinophils # (Manual) 1.07 H (0-0.7) k/uL Metamyelocytes # (Man) 5.35 H (0) k/uL Myelocytes # (Manual) 7.49 H (0) k/uL Promyelocytes # (Man) 2.14 H (0) k/uL Blast Cells # (Man) (0) k/uL Nucleated RBCs 4 H (0-0) /100 WBC PT (9.0-12.0) sec INR (<1.2) Sodium (137-145) mmol/L Potassium (3.5-5.1) mmol/L Carbon Dioxide (22-30) mmol/L BUN (9-20) mg/dL Creatinine (0.66-1.25) mg/dL Calcium (8.4-10.2) mg/dL Total Bilirubin (0.2-1.3) mg/dL Conjugated Bilirubin (0.0-0.3) mg/dL Unconjugated Bilirubin (0.0-1.1) mg/dL Delta Bilirubin (0.0-0.2) mg/dL AST (17-59) U/L Alkaline Phosphatase (38-126) U/L Total Protein (6.3-8.2) g/dL Albumin (3.5-5.0) g/dL Urine Protein 1+ H (Negative) Urine Blood Large H (Negative) Ur Leukocyte Esterase Large H (Negative) Urine RBC 66 H (0-5) /hpf Urine WBC 41 H (0-5) /hpf Amorphous Sediment Occasional H (None) /hpf Urine Bacteria Rare H (None) /hpf Hyaline Casts 10 H (0-2) /lpf Urine Mucus Rare H (None) /hpf Urine Sperm Occasional H (None) /hpf Crossmatch See Detail 09/05/20 09/05/20 09/05/20 Range/Units 04:19 04:19 04:19 WBC 159.2 H* (3.8-10.6) k/uL RBC 2.64 L (4.30-5.90) m/uL Hgb 7.8 L (13.0-17.5) gm/dL Hct 24.3 L (39.0-53.0) % RDW 21.2 H (11.5-15.5) % Plt Count 96 L (150-450) k/uL Blast Cells % 2 H* % Neutrophils # (Manual) 105.00 H (1.3-7.7) k/uL Lymphocytes # (Manual) 6.37 H (1.0-4.8) k/uL Monocytes # (Manual) 36.62 H (0-1.0) k/uL Eosinophils # (Manual) (0-0.7) k/uL Metamyelocytes # (Man) (0) k/uL Myelocytes # (Manual) 9.55 H (0) k/uL Promyelocytes # (Man) (0) k/uL Blast Cells # (Man) 3.18 H (0) k/uL Nucleated RBCs 2 H (0-0) /100 WBC PT 14.2 H (9.0-12.0) sec INR 1.4 H (<1.2) Sodium 130 L (137-145) mmol/L Potassium 5.9 H (3.5-5.1) mmol/L Carbon Dioxide 17 L (22-30) mmol/L BUN 74 H (9-20) mg/dL Creatinine 3.11 H (0.66-1.25) mg/dL Calcium 8.0 L (8.4-10.2) mg/dL Total Bilirubin 4.6 H (0.2-1.3) mg/dL Conjugated Bilirubin 1.9 H (0.0-0.3) mg/dL Unconjugated Bilirubin 1.5 H (0.0-1.1) mg/dL Delta Bilirubin 1.2 H (0.0-0.2) mg/dL AST 95 H (17-59) U/L Alkaline Phosphatase 237 H (38-126) U/L Total Protein 5.1 L (6.3-8.2) g/dL Albumin 2.4 L (3.5-5.0) g/dL Urine Protein (Negative) Urine Blood (Negative) Ur Leukocyte Esterase (Negative) Urine RBC (0-5) /hpf Urine WBC (0-5) /hpf Amorphous Sediment (None) /hpf Urine Bacteria (None) /hpf Hyaline Casts (0-2) /lpf Urine Mucus (None) /hpf Urine Sperm (None) /hpf Crossmatch Microbiology - Last 24 Hours (Table) 08/30/20 14:30 Blood Culture - Preliminary Blood No Growth after 120 hours 08/30/20 14:45 Blood Culture - Preliminary Blood No Growth after 120 hours 09/04/20 12:02 Urine Culture - Preliminary Urine,Clean Catch Assessment and Plan Plan: 1 Chronic alcoholic liver disease with alcoholic cirrhosis, Previous history of heavy alcohol consumption, although patient states he has not had anything to drink in one year. 2 Severe abdominal ascites, status post high volume paracentesis on 08/30/2020. The ascitic fluid cultures was negative for any bacterial growth 3 Multiple paracentesis for ascites, on 09/01/2020, with 12 L being removed, Third paracentesis performed on 09/03/2020, with 3.2 L removed. 4 hypotension likely secondary to septic shock. The patient currently is on pressors and norepinephrine is running at 0.15 mcg/kg per minute. 5 Abdominal compartment syndrome (ACS). 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 6 Mild alcohol induced coagulopathy. 7 atrial fibrillation with rapid ventricular response 8 Acute on Chronic kidney disease. The patient's creatinine is at the rise in the patient's creatinine is up to 3.2 along with diminished urine output 9 Non-anion gap metabolic acidosis. 10 Hyperbilirubinemia. 11 severe leukocytosis white cell count continues to rise. The serum bicarb is at 17 12 Chronic constipation. 13 MELD score is 19, suggesting a 6%, 3 month mortality. Plan: The patient is very acutely ill. Increase his IV fluids to 100 mL an hour Received 1 unit of blood for hemoglobin of 6.9. The follow-up hemoglobin today is at 7.8 The patient's norepinephrine dose is currently at 0.15 mcg/kg per minute Repeat blood cultures, obtain lactic acid levels, obtain a CAT scan of the abdomen and pelvis looking for any intra-abdominal source of sepsis This continued IV Rocephin and put the patient IV Zosyn and give the patient a dose of vancomycin. The patient is a DO NOT RESUSCITATE. We did have a conversation with him today about CODE STATUS. He would not want to be on life support. I think that's a good decision given his chronic health issues. Prognosis is very poor.
[2020-09-05] MEDS ORDERED: VANCOMYCIN IV PER PHARMACY 1 EACH MISC MISCELLANE PRN (06:40)
[2020-09-05] MEDS ORDERED: VANCOMYCIN 1,500 MG in SODIUM CHLORIDE 0.9% 250 ML IVPB ONE (07:00)
[2020-09-05] MEDS ORDERED: INSULIN REGULAR 100 UNIT/ML VIAL IV ONE ×2 (07:35→21:35)
[2020-09-05] MEDS ORDERED: SODIUM BICARB 8.4% 50 ML SYR (1 MEQ/ML) IV STA ×4 (07:35→21:35)
[2020-09-05] MEDS ORDERED: DEXTROSE 50% SYRINGE 50 ML IVP STA ×2 (07:39→21:35)
--- NOTE | 2020-09-05 07:59 | P.PN ---
Subjective Patient is seen in follow-up for acute kidney injury and hyponatremia. Sodium level 130 today. Renal function continues to worsen. Remains on Levophed. Urine output 30 mL an hour. Scheduled for CAT scan of the abdomen today. White count trending up. Vital signs are stable. On Levophed. General: On nasal cannula. HEENT: Head exam is unremarkable. Neck is without jugular venous distension. LUNGS: Breath sounds decreased. HEART: Rate and Rhythm are regular. ABDOMEN: Soft, nontender. EXTREMITITES: 1+ edema. Objective - Vital Signs Vital signs: Vital Signs Temp 98.2 F 09/05/20 04:00 Pulse 138 H 09/05/20 07:00 Resp 9 L 09/05/20 07:00 BP 88/59 09/05/20 07:00 Pulse Ox 93 L 09/05/20 07:00 Intake & Output 09/04/20 09/05/20 09/05/20 18:59 06:59 18:59 Intake Total 9914.622 2532.693 50 Output Total 830 405 30 Balance 987.901 622.693 20 Weight 96.6 kg Intake: IV 650 600 50 Sodium Chloride 0.9% 1, 650 600 50 000 ml @ 75 mls/hr IV . [id number] [facility] Rx#:[id number] Intake, IV Titration 547.901 427.693 Amount Albumin Human 25% 50 ml 50 In Empty Bag 1 bag @ 50 mls/hr IVPB Q12HR [facility] Rx# :[id number] Norepinephrine 4 mg In 397.901 427.693 Sodium Chloride 0.9% 250 ml @ 0.05 MCG/KG/MIN 18. 802 mls/hr IV .[id number] [facility] Rx#:[id number] cefTRIAXone 1 gm In 100 Sodium Chloride 0.9% 50 ml @ 100 mls/hr IVPB Q24HR [facility] Rx#:[id number] Blood Product 620 Rc As-1 Unit 310 [id number] Output: Urine 830 405 30 Other: Voiding Method Indwelling Catheter Indwelling Catheter - Labs CBC & Chem 7: 09/05/20 04:19 09/05/20 04:19 Labs: Abnormal Lab Results - Last 24 Hours (Table) 09/04/20 09/04/20 09/05/20 Range/Units 06:54 12:02 04:19 WBC 159.2 H* (3.8-10.6) k/uL RBC 2.64 L (4.30-5.90) m/uL Hgb 7.8 L (13.0-17.5) gm/dL Hct 24.3 L (39.0-53.0) % RDW 21.2 H (11.5-15.5) % Plt Count 96 L (150-450) k/uL Blast Cells % 2 H* % Neutrophils # (Manual) 105.00 H (1.3-7.7) k/uL Lymphocytes # (Manual) 6.37 H (1.0-4.8) k/uL Monocytes # (Manual) 36.62 H (0-1.0) k/uL Myelocytes # (Manual) 9.55 H (0) k/uL Blast Cells # (Man) 3.18 H (0) k/uL Nucleated RBCs 2 H (0-0) /100 WBC PT (9.0-12.0) sec INR (<1.2) Sodium (137-145) mmol/L Potassium (3.5-5.1) mmol/L Carbon Dioxide (22-30) mmol/L BUN (9-20) mg/dL Creatinine (0.66-1.25) mg/dL Calcium (8.4-10.2) mg/dL Total Bilirubin (0.2-1.3) mg/dL Conjugated Bilirubin (0.0-0.3) mg/dL Unconjugated Bilirubin (0.0-1.1) mg/dL Delta Bilirubin (0.0-0.2) mg/dL AST (17-59) U/L Alkaline Phosphatase (38-126) U/L Total Protein (6.3-8.2) g/dL Albumin (3.5-5.0) g/dL Urine Protein 1+ H (Negative) Urine Blood Large H (Negative) Ur Leukocyte Esterase Large H (Negative) Urine RBC 66 H (0-5) /hpf Urine WBC 41 H (0-5) /hpf Amorphous Sediment Occasional H (None) /hpf Urine Bacteria Rare H (None) /hpf Hyaline Casts 10 H (0-2) /lpf Urine Mucus Rare H (None) /hpf Urine Sperm Occasional H (None) /hpf Crossmatch See Detail 09/05/20 09/05/20 Range/Units 04:19 04:19 WBC (3.8-10.6) k/uL RBC (4.30-5.90) m/uL Hgb (13.0-17.5) gm/dL Hct (39.0-53.0) % RDW (11.5-15.5) % Plt Count (150-450) k/uL Blast Cells % % Neutrophils # (Manual) (1.3-7.7) k/uL Lymphocytes # (Manual) (1.0-4.8) k/uL Monocytes # (Manual) (0-1.0) k/uL Myelocytes # (Manual) (0) k/uL Blast Cells # (Man) (0) k/uL Nucleated RBCs (0-0) /100 WBC PT 14.2 H (9.0-12.0) sec INR 1.4 H (<1.2) Sodium 130 L (137-145) mmol/L Potassium 5.9 H (3.5-5.1) mmol/L Carbon Dioxide 17 L (22-30) mmol/L BUN 74 H (9-20) mg/dL Creatinine 3.11 H (0.66-1.25) mg/dL Calcium 8.0 L (8.4-10.2) mg/dL Total Bilirubin 4.6 H (0.2-1.3) mg/dL Conjugated Bilirubin 1.9 H (0.0-0.3) mg/dL Unconjugated Bilirubin 1.5 H (0.0-1.1) mg/dL Delta Bilirubin 1.2 H (0.0-0.2) mg/dL AST 95 H (17-59) U/L Alkaline Phosphatase 237 H (38-126) U/L Total Protein 5.1 L (6.3-8.2) g/dL Albumin 2.4 L (3.5-5.0) g/dL Urine Protein (Negative) Urine Blood (Negative) Ur Leukocyte Esterase (Negative) Urine RBC (0-5) /hpf Urine WBC (0-5) /hpf Amorphous Sediment (None) /hpf Urine Bacteria (None) /hpf Hyaline Casts (0-2) /lpf Urine Mucus (None) /hpf Urine Sperm (None) /hpf Crossmatch Microbiology - Last 24 Hours (Table) 08/30/20 14:30 Blood Culture - Preliminary Blood No Growth after 120 hours 08/30/20 14:45 Blood Culture - Preliminary Blood No Growth after 120 hours 09/04/20 12:02 Urine Culture - Preliminary Urine,Clean Catch Assessment and Plan Plan: Assessment: 1. Acute kidney injury secondary to ATN secondary to hypotension/shock. Also concern for hepatorenal syndrome. Renal function worse. Creatinine 3.11 today. 2. Hypervolemic hyponatremia. Status post Samsca September 02. Sodium 130 today. 3. Ascites secondary to liver cirrhosis. Status post paracentesis on August 30 to September 01 with total 20 L removed; another paracentesis done September 03 with 3.2 L drained. 4. Hyperkalemia secondary to acute kidney injury and metabolic acidosis. 5. Metabolic acidosis secondary to acute kidney injury and IV fluids. 6. Acute blood loss anemia. Status post blood transfusion September 04. Better. Plan: IV fluids increased by ICU team today. Now on normal saline 100 mL an hour. Wean vasopressors. Maintain midodrine. Continue to monitor renal function and urine output. 10 units IV regular insulin with an amp of D50 now. 2 amps sodium bicarb IV push now. Add oral sodium bicarb. CAT scan of the abdomen pending. Repeat potassium level at noon. Potential transfer to tertiary center for hepatology eval. Monitor vancomycin level. Dose to be adjusted for renal function.
[2020-09-05 08:51] LABS: Lactic Acid, Venous 3.6 mmol/L (0.7-2.0)
[2020-09-05] MEDS: SODIUM CHLORIDE 0.9% 1,000 ML IV SCH (08:52)
[2020-09-05] MEDS: PIPERACILLIN-TAZOBACTAM 3.375 GM in SODIUM CHLORIDE 0.9% 100 ML IVPB SCH ×3 (08:53→23:58)
[2020-09-05] MEDS: OCTREOTIDE 100 MCG/ML INJ SQ SCH ×3 (08:55→23:58)
[2020-09-05] MEDS ORDERED: DILTIAZEM DRIP BOLUS FROM BAG 1 MG SOLN IV ONE (09:16)
[2020-09-05] MEDS: polyethylene glycoL 3350 17 GM POWD.PACK PO SCH (09:22)
[2020-09-05] MEDS: SODIUM BICARBONATE TAB 650 MG TAB PO SCH ×3 (09:22→21:14)
[2020-09-05] MEDS: DILTIAZEM 125 MG in SODIUM CHLORIDE 0.9% 100 ML IV SCH (09:36)
--- NOTE | 2020-09-05 09:41 | P.PN ---
Subjective Progress Note Date: 09/05/20 This is a 55-year-old gentleman with history of alcohol abuse, cirrhosis and liver failure with ascites and also renal failure. Patient has been hypotensive on Levophed. We're asked to see the patient because of atrial fibrillation with RVR. His heart rate has been in 120 to 130 range. Patient also has peripheral edema. His no CODE STATUS. Because of renal failure and also liver failure, patient could not receive rate controlling medication oriented, medications. Patient is also hypertensive. We will start small dose of Cardizem 5 mg followed by 5 mg drip and see if patient can tolerate. Patient's overall prognosis is poor Objective - Vital Signs Vital signs: Vital Signs Temp 98 F 09/05/20 08:00 Pulse 138 H 09/05/20 09:00 Resp 29 H 09/05/20 09:00 BP 93/56 09/05/20 09:00 Pulse Ox 93 L 09/05/20 09:00 Intake & Output 09/04/20 09/05/20 09/05/20 18:59 06:59 18:59 Intake Total 9883.438 9022.693 404 Output Total 830 405 130 Balance 987.901 622.693 274 Weight 96.6 kg Intake: IV 650 600 150 Sodium Chloride 0.9% 1, 650 600 150 000 ml @ 75 mls/hr IV . [id number] [facility] Rx#:[id number] Intake, IV Titration 547.901 427.693 254 Amount Albumin Human 25% 50 ml 50 In Empty Bag 1 bag @ 50 mls/hr IVPB Q12HR [facility] Rx# :[id number] Norepinephrine 4 mg In 397.901 427.693 254 Sodium Chloride 0.9% 250 ml @ 0.05 MCG/KG/MIN 18. 802 mls/hr IV .[id number] [facility] Rx#:[id number] cefTRIAXone 1 gm In 100 Sodium Chloride 0.9% 50 ml @ 100 mls/hr IVPB Q24HR [facility] Rx#:[id number] Blood Product 620 Rc As-1 Unit 310 [id number] Output: Urine 830 405 130 Other: Voiding Method Indwelling Catheter Indwelling Catheter Indwelling Catheter - Exam GENERAL EXAM: Patient is ill-looking and cachectic with ascites and edema. HEENT: Normocephalic. N NECK: No masses, no nuchal rigidity. CHEST: No chest wall deformity. LUNGS: Equal air entry with no crackles or wheeze. HEART: S1 and S2 normal . Irregular heart sounds ABDOMEN: No hepatosplenomegaly, normal bowel sounds, no guarding or rigidity. SKIN: No rashes CENTRAL NERVOUS SYSTEM: No focal deficits. EXTREMITIES: No cyanosis, clubbing or edema. - Labs CBC & Chem 7: 09/05/20 04:19 09/05/20 04:19 Labs: Abnormal Lab Results - Last 24 Hours (Table) 09/04/20 09/04/20 09/05/20 Range/Units 06:54 12:02 04:19 WBC 159.2 H* (3.8-10.6) k/uL RBC 2.64 L (4.30-5.90) m/uL Hgb 7.8 L (13.0-17.5) gm/dL Hct 24.3 L (39.0-53.0) % RDW 21.2 H (11.5-15.5) % Plt Count 96 L (150-450) k/uL Blast Cells % 2 H* % Neutrophils # (Manual) 105.00 H (1.3-7.7) k/uL Lymphocytes # (Manual) 6.37 H (1.0-4.8) k/uL Monocytes # (Manual) 36.62 H (0-1.0) k/uL Myelocytes # (Manual) 9.55 H (0) k/uL Blast Cells # (Man) 3.18 H (0) k/uL Nucleated RBCs 2 H (0-0) /100 WBC PT (9.0-12.0) sec INR (<1.2) Sodium (137-145) mmol/L Potassium (3.5-5.1) mmol/L Carbon Dioxide (22-30) mmol/L BUN (9-20) mg/dL Creatinine (0.66-1.25) mg/dL Plasma Lactic Acid Benigno (0.7-2.0) mmol/L Calcium (8.4-10.2) mg/dL Total Bilirubin (0.2-1.3) mg/dL Conjugated Bilirubin (0.0-0.3) mg/dL Unconjugated Bilirubin (0.0-1.1) mg/dL Delta Bilirubin (0.0-0.2) mg/dL AST (17-59) U/L Alkaline Phosphatase (38-126) U/L Total Protein (6.3-8.2) g/dL Albumin (3.5-5.0) g/dL Urine Protein 1+ H (Negative) Urine Blood Large H (Negative) Ur Leukocyte Esterase Large H (Negative) Urine RBC 66 H (0-5) /hpf Urine WBC 41 H (0-5) /hpf Amorphous Sediment Occasional H (None) /hpf Urine Bacteria Rare H (None) /hpf Hyaline Casts 10 H (0-2) /lpf Urine Mucus Rare H (None) /hpf Urine Sperm Occasional H (None) /hpf Crossmatch See Detail 09/05/20 09/05/20 09/05/20 Range/Units 04:19 04:19 07:49 WBC (3.8-10.6) k/uL RBC (4.30-5.90) m/uL Hgb (13.0-17.5) gm/dL Hct (39.0-53.0) % RDW (11.5-15.5) % Plt Count (150-450) k/uL Blast Cells % % Neutrophils # (Manual) (1.3-7.7) k/uL Lymphocytes # (Manual) (1.0-4.8) k/uL Monocytes # (Manual) (0-1.0) k/uL Myelocytes # (Manual) (0) k/uL Blast Cells # (Man) (0) k/uL Nucleated RBCs (0-0) /100 WBC PT 14.2 H (9.0-12.0) sec INR 1.4 H (<1.2) Sodium 130 L (137-145) mmol/L Potassium 5.9 H (3.5-5.1) mmol/L Carbon Dioxide 17 L (22-30) mmol/L BUN 74 H (9-20) mg/dL Creatinine 3.11 H (0.66-1.25) mg/dL Plasma Lactic Acid Benigno 3.6 H* (0.7-2.0) mmol/L Calcium 8.0 L (8.4-10.2) mg/dL Total Bilirubin 4.6 H (0.2-1.3) mg/dL Conjugated Bilirubin 1.9 H (0.0-0.3) mg/dL Unconjugated Bilirubin 1.5 H (0.0-1.1) mg/dL Delta Bilirubin 1.2 H (0.0-0.2) mg/dL AST 95 H (17-59) U/L Alkaline Phosphatase 237 H (38-126) U/L Total Protein 5.1 L (6.3-8.2) g/dL Albumin 2.4 L (3.5-5.0) g/dL Urine Protein (Negative) Urine Blood (Negative) Ur Leukocyte Esterase (Negative) Urine RBC (0-5) /hpf Urine WBC (0-5) /hpf Amorphous Sediment (None) /hpf Urine Bacteria (None) /hpf Hyaline Casts (0-2) /lpf Urine Mucus (None) /hpf Urine Sperm (None) /hpf Crossmatch Microbiology - Last 24 Hours (Table) 08/30/20 14:30 Blood Culture - Preliminary Blood No Growth after 120 hours 08/30/20 14:45 Blood Culture - Preliminary Blood No Growth after 120 hours 09/04/20 12:02 Urine Culture - Preliminary Urine,Clean Catch Assessment and Plan Plan: Patient is being treated with atypical fibrillation with RVR. Patient also has underlying liver failure, ascites, and also renal failure. We'll try small dose of Cardizem. Prognosis is poor
--- NOTE | 2020-09-05 11:13 | CT ---
EXAMINATION TYPE: CT abdomen pelvis wo con DATE OF EXAM: 09/05/2020 HISTORY: Abdominal discomfort, constipation, liver failure. CT DLP: 1095.4 mGycm. Automated Exposure Control for Dose Reduction was Utilized. TECHNIQUE: CT scan of the abdomen and pelvis is performed without oral or IV contrast. COMPARISON: Abdominal ultrasound [address] chest May 09, 2019. FINDINGS: Within the limitations of a non-contrast study, the following observations are made. Exam suboptimal inspiration unable to hold breath in addition there is artifact caused from overlying uppe r extremities near the diaphragm. LUNG BASES: Trace bilateral pleural effusions with associated compressive atelectasis left greater th an right. Motion artifact and rotation. Small pericardial effusion. No right posterior paraspinal sof t tissue lesion possible mass measuring 4.5 x 4.3 cm axial image 12 not clearly seen on April CT. LIVER/GB: Liver now somewhat small in size. Gallbladder has distended margins. PANCREAS: No significant abnormality is seen. SPLEEN: Marked splenomegaly is present. Spleen measures nearly 27 cm long axis coronal image 64 exten ding almost to level of the iliac crest. ADRENALS: No significant abnormality is seen. KIDNEYS: There are small nonobstructing renal calculi bilaterally. Roughly 3 calculi on the left and 5 calculi in the right. Cortical thinning bilaterally. No hydronephrosis seen bilaterally. Lara cath eter decompresses bladder. BOWEL: Suboptimal evaluation without enteric contrast. Some prominence of the right and proximal bobby sverse colon is present. No suspicious small or large bowel dilatation otherwise seen. Prominence of fecal material in the right colon.. GENITAL ORGANS: No gross abnormality seen. LYMPH NODES: Some prominent but subcentimeter retroperitoneal lymph nodes for reference lymph node ao rtocaval space on image 49 just before the aortic bifurcation. No definitive greater than 1 cm adenop athy. OSSEOUS STRUCTURES: No significant abnormality is seen. OTHER: [id number] amount of peritoneal ascites greatest in the lower abdomen and pelvis. Moder ate to severe diffuse soft tissue anasarca and/or subcutaneous edema. IMPRESSION: 1. Redemonstration of cirrhosis and underlying portal venous hypertension as there is marked splenome maliha and recurrent small to moderate amount of peritoneal ascites greatest in the lower abdomen and p francis. Interval paracentesis noted 3 days ago since most recent ultrasound. 2. Overall nonobstructive bowel gas pattern. Suboptimal evaluation. [id number] proximal colon ic fecal stasis flow present. 3. Moderate to severe diffuse soft tissue anasarca. 4. Possible new lower thoracic mediastinal mass or adenopathy causing left sided distal esophageal de viation, follow-up contrast enhanced chest CT would be beneficial to further assess.
[2020-09-05] MEDS: MORPHINE SULFATE 4 MG/ML SYRINGE IV PRN (11:57)
[2020-09-05 13:23] VITALS: BMI 28.8
--- NOTE | 2020-09-05 13:52 | P.CONS ---
History of Present Illness - Reason for Consult Consult date: 09/05/20 Leukocytosis, bicytopenia Requesting physician: Parker Santos - Chief Complaint liver failure - History of Present Illness Mr. Hansen is a confused 55-year-old male we've been asked to see in regards to leukocytosis with blasts in the periphery, anemia and thrombocytopenia. Patient is able to answer a few questions, he denies knowledge of low blood counts or abnormal white blood cell count in the past, denied current nausea, difficulty breathing or acute pain. He was oriented to self and place. He was not able to provide any other information CT of the abdomen and pelvis showed cirrhosis, portal vein hypertension, resulting splenomegaly, patient had 2 recent paracentesis (8/7 L 09/08, 3.2L 09/03, no malignant cells on path), there is a small to moderate amount of ascites currently, moderate to severe proximal colonic fecal stasis, severe anasarca, lower thoracic mediastinal mass/adenopathy noted. Review of Systems ROS unobtainable: due to mental status Past Medical History Past Medical History: No Reported History Additional Past Medical History / Comment(s): blindness, chronic back History of Any Multi-Drug Resistant Organisms: None Reported Past Surgical History: No Surgical Hx Reported Past Anesthesia/Blood Transfusion Reactions: No Reported Reaction Past Psychological History: Unable to Obtain Smoking Status: Current every day smoker Past Alcohol Use History: Unable to Obtain Past Drug Use History: Unable to Obtain - Past Family History Mother Family Medical History: Cancer Father Additional Family Medical History / Comment(s): staph infection Medications and Allergies Home Medications Medication Instructions Recorded Confirmed Type No Known Home Medications 08/30/20 08/30/20 History Allergies Allergy/AdvReac Type Severity Reaction Status Date / Time No Known Allergies Allergy Verified 08/30/20 12:13 Physical Exam Vitals: Vital Signs Temp Pulse Resp BP Pulse Ox 09/05/20 11:00 137 H 22 84/53 93 L 09/05/20 10:30 124 H 10 L 87/49 95 09/05/20 10:00 140 H 11 L 66/37 94 L 09/05/20 09:30 142 H 10 L 98/65 94 L 09/05/20 09:00 138 H 29 H 93/56 93 L 09/05/20 08:30 130 H 15 91/57 94 L 09/05/20 08:00 98 F 130 H 26 H 89/56 95 09/05/20 07:30 124 H 10 L 81/52 93 L 09/05/20 07:00 138 H 9 L 88/59 93 L 09/05/20 06:30 137 H 12 85/52 93 L 09/05/20 06:00 130 H 10 L 91/58 93 L 09/05/20 05:30 122 H 12 85/57 94 L 09/05/20 05:00 128 H 12 86/49 93 L 09/05/20 04:30 126 H 11 L 84/56 95 09/05/20 04:00 98.2 F 126 H 10 L 95/54 94 L 09/05/20 03:30 128 H 14 78/53 93 L 09/05/20 03:00 137 H 8 L 92/53 94 L 09/05/20 02:30 129 H 14 86/56 93 L 09/05/20 02:00 121 H 12 88/52 93 L 09/05/20 01:30 123 H 10 L 90/45 96 09/05/20 01:00 118 H 12 89/51 97 09/05/20 00:30 130 H 17 83/50 96 09/05/20 00:00 98.2 F 126 H 15 85/53 95 09/04/20 23:30 138 H 10 L 95/60 95 09/04/20 23:02 121 H 12 95/60 96 09/04/20 23:00 123 H 10 L 89/53 96 09/04/20 22:30 126 H 9 L 81/58 95 09/04/20 22:00 125 H 22 87/51 97 09/04/20 21:30 129 H 12 80/53 96 09/04/20 21:00 130 H 12 82/58 96 09/04/20 20:30 130 H 16 97/60 96 09/04/20 20:00 98.2 F 131 H 11 L 97/60 94 L 09/04/20 19:30 125 H 14 85/60 96 09/04/20 19:00 125 H 19 80/57 95 09/04/20 18:30 131 H 23 75/50 94 L 09/04/20 18:00 123 H 14 80/45 95 09/04/20 17:30 133 H 15 82/56 95 09/04/20 17:00 131 H 11 L 80/53 95 09/04/20 16:30 128 H 12 78/57 96 09/04/20 16:00 97.5 F L 128 H 14 84/58 95 09/04/20 15:30 126 H 12 83/51 95 09/04/20 15:00 125 H 16 78/53 94 L 09/04/20 14:30 125 H 716 H 90/55 96 09/04/20 14:00 122 H 12 84/49 96 Intake and Output 09/04/20 09/05/20 09/05/20 22:59 06:59 14:59 Intake Total 762.239 719.454 864 Output Total 425 245 240 Balance 337.239 474.454 624 Intake: IV 400 400 610 Diltiazem 125 mg In 10 Sodium Chloride 0.9% 100 ml @ 5 MG/HR 5 mls/hr IV .Q24H [facility] Rx#:[id number] Sodium Chloride 0.9% 1, 200 000 ml @ 100 mls/hr IV . Q10H [facility] Rx#:[id number] Sodium Chloride 0.9% 1, 400 400 150 000 ml @ 75 mls/hr IV . [id number] [facility] Rx#:[id number] Vancomycin 1,500 mg In 250 Sodium Chloride 0.9% 250 ml @ 125 mls/hr IVPB ONCE ONE Rx#:[id number] Intake, IV Titration 362.239 319.454 254 Amount Norepinephrine 4 mg In 362.239 319.454 254 Sodium Chloride 0.9% 250 ml @ 0.05 MCG/KG/MIN 18. 802 mls/hr IV .[id number] [facility] Rx#:[id number] Output: Urine 425 245 240 Other: Voiding Method Indwelling Catheter Indwelling Catheter Indwelling Catheter Weight 96.6 kg 96.6 kg - Constitutional General appearance: average body habitus, cooperative, mild distress - EENT Eyes: scleral icterus ENT: hearing grossly normal, normal oropharynx - Neck Neck: no lymphadenopathy - Respiratory Respiratory: bilateral: diminished - Cardiovascular Tachycardia Heart sounds: normal: S1, S2 Abnormal Heart Sounds: no systolic murmur, no diastolic murmur, no rub, no S3 Gallop, no S4 Gallop, no click, no other - Gastrointestinal General gastrointestinal: no absent bowel sounds, no decreased bowel sounds, distended, no hepatomegaly, no hyperactive bowel sounds, normal bowel sounds, no organomegaly, no rigid, no scaphoid, soft, no splenomegaly, no tenderness, no umbilical hernia, ventral hernia - Integumentary Integumentary: jaundiced - Neurologic No gross motor deficits noted, generalized muscle weakness - Musculoskeletal Musculoskeletal: generalized weakness - Psychiatric Lethargic, oriented x 2 Psychiatric: no appropriate affect, no intact judgment & insight Results CBC & Chem 7: 09/05/20 04:19 09/05/20 11:52 Labs: Abnormal Lab Results - Last 24 Hours (Table) 09/05/20 09/05/20 09/05/20 Range/Units 04:19 04:19 04:19 WBC 159.2 H* (3.8-10.6) k/uL RBC 2.64 L (4.30-5.90) m/uL Hgb 7.8 L (13.0-17.5) gm/dL Hct 24.3 L (39.0-53.0) % RDW 21.2 H (11.5-15.5) % Plt Count 96 L (150-450) k/uL Blast Cells % 2 H* % Neutrophils # (Manual) 105.00 H (1.3-7.7) k/uL Lymphocytes # (Manual) 6.37 H (1.0-4.8) k/uL Monocytes # (Manual) 36.62 H (0-1.0) k/uL Myelocytes # (Manual) 9.55 H (0) k/uL Blast Cells # (Man) 3.18 H (0) k/uL Nucleated RBCs 2 H (0-0) /100 WBC PT 14.2 H (9.0-12.0) sec INR 1.4 H (<1.2) Sodium 130 L (137-145) mmol/L Potassium 5.9 H (3.5-5.1) mmol/L Carbon Dioxide 17 L (22-30) mmol/L BUN 74 H (9-20) mg/dL Creatinine 3.11 H (0.66-1.25) mg/dL Plasma Lactic Acid Benigno (0.7-2.0) mmol/L Calcium 8.0 L (8.4-10.2) mg/dL Total Bilirubin 4.6 H (0.2-1.3) mg/dL Conjugated Bilirubin 1.9 H (0.0-0.3) mg/dL Unconjugated Bilirubin 1.5 H (0.0-1.1) mg/dL Delta Bilirubin 1.2 H (0.0-0.2) mg/dL AST 95 H (17-59) U/L Alkaline Phosphatase 237 H (38-126) U/L Total Protein 5.1 L (6.3-8.2) g/dL Albumin 2.4 L (3.5-5.0) g/dL 09/05/20 09/05/20 09/05/20 Range/Units 07:49 11:52 11:52 WBC (3.8-10.6) k/uL RBC (4.30-5.90) m/uL Hgb (13.0-17.5) gm/dL Hct (39.0-53.0) % RDW (11.5-15.5) % Plt Count (150-450) k/uL Blast Cells % % Neutrophils # (Manual) (1.3-7.7) k/uL Lymphocytes # (Manual) (1.0-4.8) k/uL Monocytes # (Manual) (0-1.0) k/uL Myelocytes # (Manual) (0) k/uL Blast Cells # (Man) (0) k/uL Nucleated RBCs (0-0) /100 WBC PT (9.0-12.0) sec INR (<1.2) Sodium (137-145) mmol/L Potassium 5.4 H (3.5-5.1) mmol/L Carbon Dioxide (22-30) mmol/L BUN (9-20) mg/dL Creatinine (0.66-1.25) mg/dL Plasma Lactic Acid Benigno 3.6 H* 4.5 H* (0.7-2.0) mmol/L Calcium (8.4-10.2) mg/dL Total Bilirubin (0.2-1.3) mg/dL Conjugated Bilirubin (0.0-0.3) mg/dL Unconjugated Bilirubin (0.0-1.1) mg/dL Delta Bilirubin (0.0-0.2) mg/dL AST (17-59) U/L Alkaline Phosphatase (38-126) U/L Total Protein (6.3-8.2) g/dL Albumin (3.5-5.0) g/dL Microbiology - Last 24 Hours (Table) 09/04/20 12:02 Urine Culture - Final Urine,Clean Catch 08/30/20 14:30 Blood Culture - Preliminary Blood No Growth after 120 hours 08/30/20 14:45 Blood Culture - Preliminary Blood No Growth after 120 hours Chest x-ray: report reviewed CT scan - abdomen: report reviewed CT scan - pelvis: report reviewed Assessment and Plan (1) Leukocytosis Current Visit: Yes Status: Acute Priority: High Code(s): D72.829 - ELEV ATED WHITE BLOOD CELL COUNT, UNSPECIFIED SNOMED Code(s): 073288059 (2) Bicytopenia Current Visit: Yes Status: Acute Priority: High Code(s): D75.89 - OTHER SPECIFIED DISEASES OF BLOOD AND BLOOD-FORMING ORGANS SNOMED Code(s): 64677884 Plan: Leukocytosis reviewed. Differential noted to consist of increased neutrophils as well as monocytes. Questioning if this is a possible CML. Blasts are noted in the periphery, reactive vs adn acute leukemia. Bone marrow biopsy and aspirate would be necessary to confirm diagnosis. Left message for daughter to discuss bone marrow biopsy and aspirate because patient currently is not able to give informed consent. Also, would have to wait until patient is more hemodynamically stable before proceeding. Anemia is of new or onset, thrombocytopenia has been present since at least 2019. Suspect multifactorial, including acute illness superimposed on suppressed marrow from her EtOH abuse, possibly nutritional deficits. Iron studies will be difficult to interpret in the setting of acute illness. Abdominal CT does show splenomegaly secondary to cirrhosis so, thrombocytopenia most likely from splenic sequestration. Transfuse for hemoglobin less than 7 or if patient is symptomatic. Transfused with platelets for a platelet count less than 10,000 unless patient is symptomatic. Follow with labs daily. Multiple labs have been ordered. Coags ordered. Doctor attests: I performed a history and physical examination of this patient, developed impression and plan of care. Discussed with dictator. I agree with dictators note, documented as a scribe.
--- NOTE | 2020-09-05 14:00 | P.PN ---
Subjective Progress Note Date: 09/05/20 Principal diagnosis: Decompensated alcoholic cirrhosis of the liver, ascites, hepatorenal syndrome This is a 55-year-old male patient who presented to the hospital with initial complaints of abdominal pain, distention and increased swelling in bilateral lower extremities. He is status post 2 large volume paracentesis underwent a third paracentesis yesterday with removal of 3.2 L of fluid. He has acute kidney injury which nephrology is following the patient for. He has had an elevated WBC but continuously is rising today WBC 159.2, hemoglobin 7.8, platelets 96. He and 1:30, potassium 5.9, BUN 74, creatinine 3.1. He has a plasma lactic acid of 3.1. He is scheduled for CT of the abdomen today. He is alert and oriented 3. Not had a bowel movement since admission. The patient continues to be on Levophed, antibiotics changed to Zosyn and vancomycin. He has been made a NO CODE STATUS. Objective - Vital Signs Vital signs: Vital Signs Temp 98 F 09/05/20 08:00 Pulse 138 H 09/05/20 09:00 Resp 29 H 09/05/20 09:00 BP 93/56 09/05/20 09:00 Pulse Ox 93 L 09/05/20 09:00 Intake & Output 09/04/20 09/05/20 09/05/20 18:59 06:59 18:59 Intake Total 1736.996 7380.693 404 Output Total 830 405 130 Balance 987.901 622.693 274 Weight 96.6 kg Intake: IV 650 600 150 Sodium Chloride 0.9% 1, 650 600 150 000 ml @ 75 mls/hr IV . [id number] [facility] Rx#:[id number] Intake, IV Titration 547.901 427.693 254 Amount Albumin Human 25% 50 ml 50 In Empty Bag 1 bag @ 50 mls/hr IVPB Q12HR [facility] Rx# :[id number] Norepinephrine 4 mg In 397.901 427.693 254 Sodium Chloride 0.9% 250 ml @ 0.05 MCG/KG/MIN 18. 802 mls/hr IV .[id number] [facility] Rx#:[id number] cefTRIAXone 1 gm In 100 Sodium Chloride 0.9% 50 ml @ 100 mls/hr IVPB Q24HR [facility] Rx#:[id number] Blood Product 620 Rc As-1 Unit 310 [id number] Output: Urine 830 405 130 Other: Voiding Method Indwelling Catheter Indwelling Catheter Indwelling Catheter - Exam General appearance: The patient is drowsy, ill appearing, oriented, appears in no acute distress. HET: Head is normocephalic and atraumatic. Conjunctiva pink. Sclera anicteric. Neck: Supple without lymphadenopathy. Abdomen: Tender, Distended with bowel sounds. No guarding or rigidity. Extremities: Normal skin color and turgor. Bilateral lower extremity pitting edema. Neurological: No focal deficits. Alert and oriented 3. - Labs CBC & Chem 7: 09/05/20 04:19 09/05/20 11:52 Labs: Abnormal Lab Results - Last 24 Hours (Table) 09/04/20 09/04/20 09/05/20 Range/Units 06:54 12:02 04:19 WBC 159.2 H* (3.8-10.6) k/uL RBC 2.64 L (4.30-5.90) m/uL Hgb 7.8 L (13.0-17.5) gm/dL Hct 24.3 L (39.0-53.0) % RDW 21.2 H (11.5-15.5) % Plt Count 96 L (150-450) k/uL Blast Cells % 2 H* % Neutrophils # (Manual) 105.00 H (1.3-7.7) k/uL Lymphocytes # (Manual) 6.37 H (1.0-4.8) k/uL Monocytes # (Manual) 36.62 H (0-1.0) k/uL Myelocytes # (Manual) 9.55 H (0) k/uL Blast Cells # (Man) 3.18 H (0) k/uL Nucleated RBCs 2 H (0-0) /100 WBC PT (9.0-12.0) sec INR (<1.2) Sodium (137-145) mmol/L Potassium (3.5-5.1) mmol/L Carbon Dioxide (22-30) mmol/L BUN (9-20) mg/dL Creatinine (0.66-1.25) mg/dL Plasma Lactic Acid Benigno (0.7-2.0) mmol/L Calcium (8.4-10.2) mg/dL Total Bilirubin (0.2-1.3) mg/dL Conjugated Bilirubin (0.0-0.3) mg/dL Unconjugated Bilirubin (0.0-1.1) mg/dL Delta Bilirubin (0.0-0.2) mg/dL AST (17-59) U/L Alkaline Phosphatase (38-126) U/L Total Protein (6.3-8.2) g/dL Albumin (3.5-5.0) g/dL Urine Protein 1+ H (Negative) Urine Blood Large H (Negative) Ur Leukocyte Esterase Large H (Negative) Urine RBC 66 H (0-5) /hpf Urine WBC 41 H (0-5) /hpf Amorphous Sediment Occasional H (None) /hpf Urine Bacteria Rare H (None) /hpf Hyaline Casts 10 H (0-2) /lpf Urine Mucus Rare H (None) /hpf Urine Sperm Occasional H (None) /hpf Crossmatch See Detail 09/05/20 09/05/20 09/05/20 Range/Units 04:19 04:19 07:49 WBC (3.8-10.6) k/uL RBC (4.30-5.90) m/uL Hgb (13.0-17.5) gm/dL Hct (39.0-53.0) % RDW (11.5-15.5) % Plt Count (150-450) k/uL Blast Cells % % Neutrophils # (Manual) (1.3-7.7) k/uL Lymphocytes # (Manual) (1.0-4.8) k/uL Monocytes # (Manual) (0-1.0) k/uL Myelocytes # (Manual) (0) k/uL Blast Cells # (Man) (0) k/uL Nucleated RBCs (0-0) /100 WBC PT 14.2 H (9.0-12.0) sec INR 1.4 H (<1.2) Sodium 130 L (137-145) mmol/L Potassium 5.9 H (3.5-5.1) mmol/L Carbon Dioxide 17 L (22-30) mmol/L BUN 74 H (9-20) mg/dL Creatinine 3.11 H (0.66-1.25) mg/dL Plasma Lactic Acid Benigno 3.6 H* (0.7-2.0) mmol/L Calcium 8.0 L (8.4-10.2) mg/dL Total Bilirubin 4.6 H (0.2-1.3) mg/dL Conjugated Bilirubin 1.9 H (0.0-0.3) mg/dL Unconjugated Bilirubin 1.5 H (0.0-1.1) mg/dL Delta Bilirubin 1.2 H (0.0-0.2) mg/dL AST 95 H (17-59) U/L Alkaline Phosphatase 237 H (38-126) U/L Total Protein 5.1 L (6.3-8.2) g/dL Albumin 2.4 L (3.5-5.0) g/dL Urine Protein (Negative) Urine Blood (Negative) Ur Leukocyte Esterase (Negative) Urine RBC (0-5) /hpf Urine WBC (0-5) /hpf Amorphous Sediment (None) /hpf Urine Bacteria (None) /hpf Hyaline Casts (0-2) /lpf Urine Mucus (None) /hpf Urine Sperm (None) /hpf Crossmatch Microbiology - Last 24 Hours (Table) 08/30/20 14:30 Blood Culture - Preliminary Blood No Growth after 120 hours 08/30/20 14:45 Blood Culture - Preliminary Blood No Growth after 120 hours 09/04/20 12:02 Urine Culture - Preliminary Urine,Clean Catch Assessment and Plan (1) Decompensated hepatic cirrhosis Narrative/Plan: This is a 55-year-old male with a past medical history with significant alcohol abuse for over 40 years for which he states he was drinking a case of beer to a fifth a day. He now states that he has been sober for 1 year. He presented to the hospital due to abdominal distention, decreased oral intake and shortness of breath. A paracentesis was performed with 8.7 L of ascitic fluid removed. Suspicious is for decompensated alcoholic cirrhosis of the liver with new onset ascites. No prior history of encephalopathy or GI bleed. Patient's care somewhat complicated as he is hyponatremic with elevated creatinine with concerns for hepatorenal syndrome currently receiving octreotide. Nephrology is on consult. Patient status post 3 large volume paracentesis. He is status post albumin. Current Visit: Yes Status: Acute Code(s): K72.90 - HEPATIC FAILURE, UNSPECIFIED WITHOUT COMA; K74.60 - UNSPECIFIED CIRRHOSIS OF LIVER SNOMED Code(s): 267186829 (2) Abdominal ascites Narrative/Plan: Nephrology is following patient closely and managing fluids. Appreciate recommendations from nephrology for diuretics. Current Visit: Yes Status: Acute Code(s): R18.8 - OTHER ASCITES SNOMED Code(s): 018656186 Plan: Supportive care Daily CBC and BMP Low-sodium diet Continue alcohol abstinence Nephrology on consult and managing fluid status Patient is status two large volume paracentesis May discontinue lactulose as patient is refusing, ammonia levels have been normal Continue octreotide for suspected hepatorenal syndrome, albumin and midodrine had been discontinued Miralax daily, can increase to twice a day for constipation Continue with current antibiotics Consult infectious disease Very guarded prognosis, may need to consider transfer to tertiary center for higher level of care if patient's labs and clinical picture does not improve We'll continue to follow closely Dr. Brittaney Mchugh I agree with the dictator's note, documented as a scribe by Monique Roman.
--- NOTE | 2020-09-05 16:49 | P.PCN ---
Date of Procedure: 09/05/20 Preoperative Diagnosis: Septic shock Postoperative Diagnosis: Septic shock Procedure(s) Performed: Insertion of a triple-lumen catheter and arterial line Anesthesia: local Surgeon: Rafael Art Estimated Blood Loss (ml): 0 Pathology: other Condition: critical Disposition: ICU Operative Findings: Indication: Hemodynamic monitoring/Intravenous access. A time-out was completed verifying correct patient, procedure, site, positioning, and implant(s) or special equipment if applicable. The patient was placed in a dependent position appropriate for central line placement based on the vein to be cannulated. The patients left neck was prepped and draped in sterile fashion. 1% Lidocaine was used to anesthetize the surrounding skin area. A triple lumen 9F Cordis catheter was introduced into the internal jugular vein using Seldinger technique. The catheter was thr eaded smoothly over the guide wire and appropriate blood return was obtained. Each lumen of the catheter was evacuated of air and flushed with sterile saline. The catheter was then sutured in place to the skin and a sterile dressing applied. Perfusion to the extremity distal to the point of catheter insertion was checked and found to be adequate. The patient tolerated the procedure well and there were no complications. Indication: Hemodynamic monitoring. A time-out was completed verifying correct patient, procedure, site, positioning, and implant(s) or special equipment if applicable. Allens test was performed to ensure adequate perfusion. The patients left breast was prepped and draped in sterile fashion. 1% Lidocaine was used to anesthetize the area. An 18G Arrow arterial line was introduced into the radial artery. The catheter was threaded over the guide wire and the needle was removed with appropriate pulsatile blood return. Blood loss was minimal. The catheter was then sutured in place to the skin and a sterile dressing applied. Perfusion to the extremity distal to the point of catheter insertion was checked and found to be adequate. The patient tolerated the procedure well and there were no complications.
--- NOTE | 2020-09-05 17:15 | XR ---
EXAMINATION TYPE: XR chest 1V portable DATE OF EXAM: 09/05/2020 COMPARISON: 09/03/2020 HISTORY: Check line placement TECHNIQUE: FINDINGS: Heart size is normal. There is some blunting of the costophrenic angles. There is left jugu lar catheter with tip in the superior vena cava. There is mild pulmonary vascular congestion. There i s probably some airspace infiltrate in the left lower lobe. IMPRESSION: Catheter appears in good position. There is possible mild congestive heart failure that i s increased compared to recent exam. There is mild atelectasis and infiltrate at the lung bases.
[2020-09-05] MEDS: NOREPINEPHRINE 32 MG in SODIUM CHLORIDE 0.9% 218 ML IV SCH (17:46)
[2020-09-05 21:01] LABS: Anisocytosis Marked; HCT 22.6 % (39.0-53.0); HGB 7.1 gm/dL (13.0-17.5); Hypochromasia Marked; MCH 29.5 pg (25.0-35.0); MCHC 31.3 g/dL (31.0-37.0); MCV 94.2 fL (80.0-100.0); Macrocytosis Slight; Mean Platelet Volume 13.6; Platelet Count 108 k/uL (150-450); Poikilocytosis Slight; RDW 24.6 % (11.5-15.5)
--- NOTE | 2020-09-05 21:06 | XR ---
EXAMINATION TYPE: XR chest 1V DATE OF EXAM: 09/05/2020 COMPARISON: Today HISTORY: Check line placement. Short of breath. TECHNIQUE: Single view FINDINGS: There is left jugular catheter with tip at the top of the right atrium. There is coarse inf iltrate and atelectasis at the lung bases. There is no gross heart failure. There are chest leads. IMPRESSION: There are increased infiltrate and atelectasis at the lung bases compared to the exam 4 h ours ago. No obvious heart failure.
[2020-09-05 21:14] LABS: Albumin 2.2 g/dL (3.5-5.0); Potassium 5.9 mmol/L (3.5-5.1); Total Bilirubin 4.9 mg/dL (0.2-1.3); Total Protein 4.9 g/dL (6.3-8.2)
[2020-09-05] MEDS: LACTULOSE 20 GM/30 ML CUP PO SCH (21:17)
[2020-09-05] MEDS ORDERED: DEXTROSE 5% IN WATER 1,000 ML with SODIUM BICARB (1 MEQ/ML) 150 ML IV SCH (21:30)
[2020-09-05] MEDS ORDERED: SODIUM CHLORIDE 0.9% 1,000 ML IV ONE (21:30)
[2020-09-05 21:55] LABS: Band Neutrophils % 9 %; Metamyelocytes % 5 %; Myelocytes % 10 %; Neutrophils % (M) 58 %; Nucleated Red Blood Cells 20 /100 WBC (0-0); Total Cells Counted 200
[2020-09-05 21:56] LABS: Anisocytosis (M) Present; Blast Cells # (M) 11.35 k/uL (0); Hypochromasia (M) Present; Lymphocytes # (M) 8.11 k/uL (1.0-4.8); Metamyelocytes # (M) 8.11 k/uL (0); Monocytes # (M) 11.35 k/uL (0-1.0); Myelocytes # (M) 16.22 k/uL (0); Poikilocytosis (M) Present; Polychromasia Present; WBC 162.2 k/uL (3.8-10.6)
--- NOTE | 2020-09-05 22:16 | CONS ---
CONSULTATION DATE OF SERVICE: 09/05/2020. REASON FOR CONSULTATION: Leukocytosis and sepsis. HISTORY OF PRESENT ILLNESS: The patient is a 55-year-old male presenting to the ER at [facility] about 6 days ago on August 30, 2020, for evaluation of abdominal pain, distention, nausea, lower extremity edema along with shortness of breath in this patient who apparently does not follow with a regular doctor and does have a history of alcohol abuse in the past. However, the patient has not been drinking for the last one year. The patient was not taking any medication on presentation to the hospital. The patient was afebrile on admission and no fever has been recorded since then. The patient did have a white count of 19.9, and this has subsequently gradually increased. It was up to 56,000 on September 03, 107,000 yesterday, and 159,000 today. That has prompted this infectious disease consultation. The patient shows blast cells 2% and some other abnormal forms on the CBC. The patient also has anemia requiring blood transfusion. The patient had an ultrasound on admission, with moderate to large abdominal ascites throughout the abdomen, hepatomegaly; no gallstone. The patient is status post paracentesis on August 30, September 01 and September 04. The ascitic fluid culture has been negative. Blood culture on admission has been negative as well. The patient is currently in the ICU and is on low-dose pressor support. The patient was slightly lethargic and not a very good historian. However, he was breathing comfortably on room air. When asked specifically, he denies having any chest pain or cough. No vomiting. No worsening abdominal discomfort. No diarrhea has been reported, either. The patient overall is not able to give a good history, so most of the history has been extracted from the chart. The patient also had a CT of the abdomen and pelvis completed which shows redemonstration of cirrhosis, portal hypertension, small ascites, nonobstructive bowel gas pattern, moderate to severe soft tissue anasarca, possible new lower thoracic mediastinal mass or adenopathy with left-sided distal esophageal deviation. The patient did have blood cultures drawn. He was previously on Rocephin, which has been discussed. The patient was started on vancomycin and Zosyn. Infectious Disease was consulted for further management because of his elevated white count. The patient also has elevated lactic acid and did have worsening of his kidney function; 1.96 on admission and now up to 3.11. REVIEW OF SYSTEMS: Positive points have been mentioned in the HPI. Rest of the systems are negative. PAST MEDICAL HISTORY: Chronic back pain, bipolar, depression. PAST SURGICAL HISTORY: No surgeries. SOCIAL HISTORY: Patient with history of alcohol; no drinking for a year. marijuana use. FAMILY HISTORY: Mother with history of cancer. ALLERGIES: NO KNOWN DRUG ALLERGIES. MEDICATIONS: The patient is currently on diltiazem, lactulose, midodrine, vancomycin, Pharmacy to dose, Narcan, Sandostatin, Zofran, Zosyn, MiraLAX, tramadol. PHYSICAL EXAMINATION: Blood pressure is 106/70 with a pulse of 124, temperature 98. He is 96% on room air. General description is a middle-aged male lying in bed in no distress. No tachypnea or accessory muscle of respiration use. HEENT: Examination shows slight scleral icterus. Oral mucous membrane is dry. NECK: Trachea is central. No thyromegaly. LUNGS: Unlabored breathing. Decreased breath sounds at the base. No wheeze. HEART: S1, S2. Tachycardic. ABDOMEN: Soft. Mildly distended. No guarding or rigidity or organomegaly. EXTREMITIES: Trace edema of feet. SKIN EXAMINATION: No rash or mass palpable. Neurologically the patient is lethargic though responds to name, person. Orientation could not be determined. LABS/IMAGING: Hemoglobin is 7.8, white count 159.2 with immature blast cells. His BUN is 74, creatinine is 3.11. Lactic acid 3.6. Liver exams are elevated. Blood culture on admission has been negative so far. Ascitic fluid culture done on August 30 is negative. DIAGNOSTIC IMPRESSION AND PLAN: Patient with significantly elevated white count which is likely multifactorial and more likely representing a leukemoid reaction in this patient who did have evidence of immature cells on the CBC. The patient presented with abdominal distention with evidence of ascites and underlying alcoholic cirrhosis. However, ascitic fluid culture has been negative and the CT of abdomen and pelvis did not show any evidence of colitis or an abscess. The patient is currently breathing comfortably on room air with no significant evidence of any pneumonia. No evidence of any cellulitis or joint swelling. Patient did have worsening kidney function and high risk of nephrotoxicity from the vancomycin. PLAN: 1. We will continue the patient on Zosyn; however, discontinue vancomycin to decrease the risk of toxicity and add daptomycin to cover for the Gram-positive while waiting for his condition to stabilize and culture to finalize. 2. We will continue to monitor his clinical course and culture. Will adjust antibiotics further if needed. Thank you for this consultation. Will follow this patient along with you. MMODL / IJN: [id number] /
[2020-09-05] MEDS: DEXTROSE 5% IN WATER 1,000 ML with SODIUM BICARB (1 MEQ/ML) 150 ML IV SCH (22:31)
[2020-09-06] MEDS: MORPHINE SULFATE 4 MG/ML SYRINGE IV PRN ×3 (00:59→14:05)
[2020-09-06 03:54] LABS: Anisocytosis Marked; HCT 21.9 % (39.0-53.0); Hypochromasia Marked; MCH 28.4 pg (25.0-35.0); MCHC 30.3 g/dL (31.0-37.0); MCV 93.8 fL (80.0-100.0); Macrocytosis Slight; Mean Platelet Volume 14.3; Platelet Count 108 k/uL (150-450); Poikilocytosis Slight; RBC 2.34 m/uL (4.30-5.90); RDW 24.2 % (11.5-15.5)
[2020-09-06 03:57] LABS: Albumin 2.1 g/dL (3.5-5.0); Calcium 7.8 mg/dL (8.4-10.2); Potassium 5.3 mmol/L (3.5-5.1); Total Bilirubin 5.6 mg/dL (0.2-1.3); Total Protein 4.7 g/dL (6.3-8.2)
[2020-09-06 04:06] LABS: HGB 6.6 gm/dL (13.0-17.5)
[2020-09-06] MEDS: NOREPINEPHRINE 32 MG in SODIUM CHLORIDE 0.9% 218 ML IV SCH ×2 (04:07→15:42)
[2020-09-06] MEDS: DILTIAZEM 125 MG in SODIUM CHLORIDE 0.9% 100 ML IV SCH (05:45)
[2020-09-06 05:55] LABS: Band Neutrophils % 9 %; Metamyelocytes % 6 %; Myelocytes % 3 %; Neutrophils % (M) 52 %; Promyelocytes % 2 %
[2020-09-06 05:56] LABS: Nucleated Red Blood Cells 12 /100 WBC (0-0); Total Cells Counted 200
[2020-09-06 05:57] LABS: Blast Cells # (M) 1.84 k/uL (0); Lymphocytes # (M) 3.69 k/uL (1.0-4.8); Metamyelocytes # (M) 11.06 k/uL (0); Monocytes # (M) 49.76 k/uL (0-1.0); Myelocytes # (M) 5.53 k/uL (0); Polychromasia Present; Promyelocytes # (M) 3.69 k/uL (0); WBC 184.3 k/uL (3.8-10.6)
[2020-09-06] MEDS ORDERED: VANCOMYCIN 1,500 MG in SODIUM CHLORIDE 0.9% 250 ML IVPB ONE (06:00)
--- NOTE | 2020-09-06 06:52 | P.PN ---
Subjective Progress Note Date: 09/06/20 55-year-old male who apparently does not see a doctor on a regular basis. The patient presented to the emergency room on August 30 at 1045, with multiple complaints including chest pain, abdominal pain, abdominal distention, nausea, lower extremity edema, and shortness of breath. The patient is a recovering alcoholic and states he has not had anything to drink in one year. He does admit to smoking on a daily basis. He apparently does not take any medications on a regular basis although one point, he was on Abilify, and Zoloft. He has not been feeling well for a couple weeks or so prior to this admission. On this admission, he was seen by interventional radiology and had a high volume parac entesis. On August 30, 8 L was removed. He did have albumin replacement therapy. The patient came to the intensive care unit on August 31 for low blood pressure. An "A" was called last night and the patient was transferred down after one of the ICU The patient is also getting norepinephrine at 11 mcg/m. White count which is 107,000. Discussion with the patient was done about CODE STATUS. He would not want to be on life support. The patient's is anemic with a hemoglobin was 6.9. He received 1 unit of blood. The patient's platelet count was 100,000. The sodium was 127, BUN 62, and creatinine 2.98. The patient also has developed an [place]. The blood cultures are negative and the ascitic fluid culture was also negative for any growth. The patient is currently on IV Rocephin as an empiric antibiotic. On 09/05/2020, the patient is lethargic and sleepy. He is still tachycardic and heart disease in the 120 range and the patient is still in atrial fibrillation. IV fluids running in the form of normal saline at the rate of 50 mL an hour and the patient is on norepinephrine drip at 0. I micrograms per kilogram per minute. Urine output is diminished. He does have increased edema in lower extremities. He is not answering questions much. White cell count is up 150k and he is afebrile. Serum bicarb is down to 17. No reported diarrhea. No reported abdominal distention. All of his cultures came back negative. On today's evaluation of 09/06/2020 and the patient for a follow-up. The patient's condition is significantly compensated since yesterday. The patient is unresponsive and very much somnolent and obtunded. He progressively went into shock state which is believed to be related to her septic shock and the patient was struck on his underarms and the patient's white cell count today is up to 184,000. At the same time, the patient had 7% blasts which is down to 1% and he has 52% bandemia. As part of a septic workup, a CAT scan of the abdomen and pelvis was done yesterday and the CAT scan of the abdomen and pelvis showed portal venous hypertension and splenomegaly consistent with his liver cirrhosis addition to ascites and nonobstructive bowel gas pattern and moderate to diffuse soft tissue anasarca. At the same time there was a possible thoracic mediastinal mass posteriorly left-sided distal to the esophagus. Hemodynamically, the patient's pressor requirements have gone up. Currently is running on levo fed at 0.45 mcg/kg per minute. He is also on IV fluid with bicarbonate infusion. The IV fluids was switched yesterday as the patient was becoming progressively more acidotic and his potassium level was on the rise. Morning labs showed a potassium level of 5.3 and his creatinine is at 3.64. Overnight he received a total of 2 doses of 25 mg of sodium bicarb and later on he was given a third making it a total of 150 mEq and the patient is currently on a bicarb infusion. Morning was at 6.6 and the patient is receiving a unit of packed RBC. Meanwhile his CVP level is at 10. He is covered with broad- spectrum antibiotics. I started him on a combination of Zosyn and vancomycin. ID evaluated the patient and switch this patient from vancomycin to daptomycin. All of his cultures are negative. His abdomen is soft. There is some soft ascites. His lactic acid level is up to 8.1. No bowel movement activity for now. He is afebrile. He is tachycardic with a heart rate of 120 irregular consistent with atrial fibrillation. The patient is also running on Cardizem drip at 5 mg an hour. He is on no anticoagulants for now. His correlation profile from yesterday showed an INR of 1.4 with a PT of 14.2. Lara catheter is in place and the neck fluid balance is in order of +3.4 L over the past 24 hours. The ammonia level was 18 from yesterday. Objective - Vital Signs Vital signs: Vital Signs Temp 99.0 F 09/06/20 05:41 Pulse 112 H 09/06/20 05:41 Resp 14 09/06/20 05:41 BP 98/52 09/06/20 05:41 Pulse Ox 94 L 09/06/20 05:41 Intake & Output 09/05/20 09/05/20 09/06/20 06:59 18:59 06:59 Intake Total 7386.997 7600.379 2227.560 Output Total 405 405 450 Balance 793.767 1823.379 1777.560 Weight 96.6 kg 96.6 kg 98.2 kg Intake: IV 600 1450 1900 Dextrose 5% in Water 1, 700 000 ml @ 100 mls/hr IV . [id number] [facility] with Sodium Bicarb (1 Meq/ml) 150 ml Rx#:[id number] Diltiazem 125 mg In 50 Sodium Chloride 0.9% 100 ml @ 5 MG/HR 5 mls/hr IV .Q24H [facility] Rx#:[id number] Sodium Chloride 0.9% 1, 1000 1200 000 ml @ 100 mls/hr IV . Q10H [facility] Rx#:[id number] Sodium Chloride 0.9% 1, 600 150 000 ml @ 75 mls/hr IV . [id number] [facility] Rx#:[id number] Vancomycin 1,500 mg In 250 Sodium Chloride 0.9% 250 ml @ 125 mls/hr IVPB ONCE ONE Rx#:[id number] Intake, IV Titration 427.693 599.379 287.560 Amount Diltiazem 125 mg In 100.75 Sodium Chloride 0.9% 100 ml @ 5 MG/HR 5 mls/hr IV .Q24H [facility] Rx#:[id number] Norepinephrine 32 mg In 186.810 Sodium Chloride 0.9% 218 ml @ 0.05 MCG/KG/MIN 2. 264 mls/hr IV .Q24H [facility] Rx#:[id number] Norepinephrine 4 mg In 427.693 599.379 Sodium Chloride 0.9% 250 ml @ 0.05 MCG/KG/MIN 18. 802 mls/hr IV .[id number] [facility] Rx#:[id number] Tube Feeding 40 Blood Product 0 Rc As-1 Unit 0 [id number] Output: Urine 405 405 450 Other: Voiding Method Indwelling Catheter Indwelling Catheter Indwelling Catheter ABP, PAP, CO, CI - Last Documented Arterial Blood Pressure 89/39 - Exam Is obtunded, lethargic, unresponsive currently on oxygen at 2 L.. Patient on nasal O2 at 2 L/m. The patient is very pale, and very chronically ill appearing. Head exam was generally normal. There was no scleral icterus or corneal arcus. Mucous membranes were moist. HEENT examination is grossly unremarkable. Mucous membranes are moist. No oral lesions. Neck supple. Full range of motion. No adenopathy thyromegaly or neck vein distention. Cardiovascular examination reveals regular rhythm rate. S1-S2 normal. No S3 or S4. No discernible murmur noted. Heart sounds are distant. Lungs reveal mostly clear breath sounds. A few scattered rhonchi are noted. No wheezes or crackles. Breath sounds equal bilaterally. There is also evidence of an upper airway secretions and congestion and rhonchi. Abdomen very distended. Bowel sounds are not noted. Mild abdominal tenderness. No mass. Extremities are intact. No cyanosis or clubbing. There is 1+ edema. It is pitting. Skin is without rash or lesion. Neurologic unresponsive. Not following any commands. Withdraws to deep painful stimulation. He has masses or painful stimulation. - Labs CBC & Chem 7: 09/06/20 03:30 09/06/20 03:30 Labs: Abnormal Lab Results - Last 24 Hours (Table) 09/04/20 09/05/20 09/05/20 Range/Units 06:54 07:49 11:52 WBC (3.8-10.6) k/uL RBC (4.30-5.90) m/uL Hgb (13.0-17.5) gm/dL Hct (39.0-53.0) % MCHC (31.0-37.0) g/dL RDW (11.5-15.5) % Plt Count (150-450) k/uL Blast Cells % % Neutrophils # (Manual) (1.3-7.7) k/uL Lymphocytes # (Manual) (1.0-4.8) k/uL Monocytes # (Manual) (0-1.0) k/uL Metamyelocytes # (Man) (0) k/uL Myelocytes # (Manual) (0) k/uL Promyelocytes # (Man) (0) k/uL Blast Cells # (Man) (0) k/uL Nucleated RBCs (0-0) /100 WBC Sodium (137-145) mmol/L Potassium 5.4 H (3.5-5.1) mmol/L Chloride (98-107) mmol/L Carbon Dioxide (22-30) mmol/L BUN (9-20) mg/dL Creatinine (0.66-1.25) mg/dL Glucose (74-99) mg/dL Plasma Lactic Acid Benigno 3.6 H* (0.7-2.0) mmol/L Calcium (8.4-10.2) mg/dL Total Bilirubin (0.2-1.3) mg/dL AST (17-59) U/L Alkaline Phosphatase (38-126) U/L Total Protein (6.3-8.2) g/dL Albumin (3.5-5.0) g/dL Crossmatch See Detail 09/05/20 09/05/20 09/05/20 Range/Units 11:52 14:55 19:47 WBC (3.8-10.6) k/uL RBC (4.30-5.90) m/uL Hgb (13.0-17.5) gm/dL Hct (39.0-53.0) % MCHC (31.0-37.0) g/dL RDW (11.5-15.5) % Plt Count (150-450) k/uL Blast Cells % % Neutrophils # (Manual) (1.3-7.7) k/uL Lymphocytes # (Manual) (1.0-4.8) k/uL Monocytes # (Manual) (0-1.0) k/uL Metamyelocytes # (Man) (0) k/uL Myelocytes # (Manual) (0) k/uL Promyelocytes # (Man) (0) k/uL Blast Cells # (Man) (0) k/uL Nucleated RBCs (0-0) /100 WBC Sodium (137-145) mmol/L Potassium (3.5-5.1) mmol/L Chloride (98-107) mmol/L Carbon Dioxide (22-30) mmol/L BUN (9-20) mg/dL Creatinine (0.66-1.25) mg/dL Glucose (74-99) mg/dL Plasma Lactic Acid Benigno 4.5 H* 4.8 H* 7.1 H* (0.7-2.0) mmol/L Calcium (8.4-10.2) mg/dL Total Bilirubin (0.2-1.3) mg/dL AST (17-59) U/L Alkaline Phosphatase (38-126) U/L Total Protein (6.3-8.2) g/dL Albumin (3.5-5.0) g/dL Crossmatch 09/05/20 09/05/20 09/05/20 Range/Units 19:47 20:50 20:50 WBC 162.2 H* (3.8-10.6) k/uL RBC 2.40 L (4.30-5.90) m/uL Hgb 7.1 L (13.0-17.5) gm/dL Hct 22.6 L (39.0-53.0) % MCHC (31.0-37.0) g/dL RDW 24.6 H (11.5-15.5) % Plt Count 108 L (150-450) k/uL Blast Cells % 7 H* % Neutrophils # (Manual) 108.60 H (1.3-7.7) k/uL Lymphocytes # (Manual) 8.11 H (1.0-4.8) k/uL Monocytes # (Manual) 11.35 H (0-1.0) k/uL Metamyelocytes # (Man) 8.11 H (0) k/uL Myelocytes # (Manual) 16.22 H (0) k/uL Promyelocytes # (Man) (0) k/uL Blast Cells # (Man) 11.35 H (0) k/uL Nucleated RBCs 20 H (0-0) /100 WBC Sodium 133 L (137-145) mmol/L Potassium 5.8 H 5.9 H (3.5-5.1) mmol/L Chloride (98-107) mmol/L Carbon Dioxide 12 L (22-30) mmol/L BUN 81 H (9-20) mg/dL Creatinine 3.53 H (0.66-1.25) mg/dL Glucose (74-99) mg/dL Plasma Lactic Acid Benigno (0.7-2.0) mmol/L Calcium 8.0 L (8.4-10.2) mg/dL Total Bilirubin 4.9 H (0.2-1.3) mg/dL AST 73 H (17-59) U/L Alkaline Phosphatase 201 H (38-126) U/L Total Protein 4.9 L (6.3-8.2) g/dL Albumin 2.2 L (3.5-5.0) g/dL Crossmatch 09/05/20 09/06/20 09/06/20 Range/Units 22:22 00:55 00:55 WBC (3.8-10.6) k/uL RBC (4.30-5.90) m/uL Hgb (13.0-17.5) gm/dL Hct (39.0-53.0) % MCHC (31.0-37.0) g/dL RDW (11.5-15.5) % Plt Count (150-450) k/uL Blast Cells % % Neutrophils # (Manual) (1.3-7.7) k/uL Lymphocytes # (Manual) (1.0-4.8) k/uL Monocytes # (Manual) (0-1.0) k/uL Metamyelocytes # (Man) (0) k/uL Myelocytes # (Manual) (0) k/uL Promyelocytes # (Man) (0) k/uL Blast Cells # (Man) (0) k/uL Nucleated RBCs (0-0) /100 WBC Sodium (137-145) mmol/L Potassium 5.2 H (3.5-5.1) mmol/L Chloride (98-107) mmol/L Carbon Dioxide (22-30) mmol/L BUN (9-20) mg/dL Creatinine (0.66-1.25) mg/dL Glucose (74-99) mg/dL Plasma Lactic Acid Benigno 8.9 H* 6.3 H* (0.7-2.0) mmol/L Calcium (8.4-10.2) mg/dL Total Bilirubin (0.2-1.3) mg/dL AST (17-59) U/L Alkaline Phosphatase (38-126) U/L Total Protein (6.3-8.2) g/dL Albumin (3.5-5.0) g/dL Crossmatch 09/06/20 09/06/20 09/06/20 Range/Units 03:30 03:30 03:30 WBC 184.3 H* (3.8-10.6) k/uL RBC 2.34 L (4.30-5.90) m/uL Hgb 6.6 L* (13.0-17.5) gm/dL Hct 21.9 L (39.0-53.0) % MCHC 30.3 L (31.0-37.0) g/dL RDW 24.2 H (11.5-15.5) % Plt Count 108 L (150-450) k/uL Blast Cells % 1 H* % Neutrophils # (Manual) 112.40 H (1.3-7.7) k/uL Lymphocytes # (Manual) (1.0-4.8) k/uL Monocytes # (Manual) 49.76 H (0-1.0) k/uL Metamyelocytes # (Man) 11.06 H (0) k/uL Myelocytes # (Manual) 5.53 H (0) k/uL Promyelocytes # (Man) 3.69 H (0) k/uL Blast Cells # (Man) 1.84 H (0) k/uL Nucleated RBCs 12 H (0-0) /100 WBC Sodium 135 L (137-145) mmol/L Potassium 5.3 H (3.5-5.1) mmol/L Chloride 108 H (98-107) mmol/L Carbon Dioxide 16 L (22-30) mmol/L BUN 83 H (9-20) mg/dL Creatinine 3.64 H (0.66-1.25) mg/dL Glucose 106 H (74-99) mg/dL Plasma Lactic Acid Benigno 7.1 H* (0.7-2.0) mmol/L Calcium 7.8 L (8.4-10.2) mg/dL Total Bilirubin 5.6 H (0.2-1.3) mg/dL AST 76 H (17-59) U/L Alkaline Phosphatase 189 H (38-126) U/L Total Protein 4.7 L (6.3-8.2) g/dL Albumin 2.1 L (3.5-5.0) g/dL Crossmatch 09/06/20 Range/Units 05:55 WBC (3.8-10.6) k/uL RBC (4.30-5.90) m/uL Hgb (13.0-17.5) gm/dL Hct (39.0-53.0) % MCHC (31.0-37.0) g/dL RDW (11.5-15.5) % Plt Count (150-450) k/uL Blast Cells % % Neutrophils # (Manual) (1.3-7.7) k/uL Lymphocytes # (Manual) (1.0-4.8) k/uL Monocytes # (Manual) (0-1.0) k/uL Metamyelocytes # (Man) (0) k/uL Myelocytes # (Manual) (0) k/uL Promyelocytes # (Man) (0) k/uL Blast Cells # (Man) (0) k/uL Nucleated RBCs (0-0) /100 WBC Sodium (137-145) mmol/L Potassium (3.5-5.1) mmol/L Chloride (98-107) mmol/L Carbon Dioxide (22-30) mmol/L BUN (9-20) mg/dL Creatinine (0.66-1.25) mg/dL Glucose (74-99) mg/dL Plasma Lactic Acid Benigno 8.1 H* (0.7-2.0) mmol/L Calcium (8.4-10.2) mg/dL Total Bilirubin (0.2-1.3) mg/dL AST (17-59) U/L Alkaline Phosphatase (38-126) U/L Total Protein (6.3-8.2) g/dL Albumin (3.5-5.0) g/dL Crossmatch Microbiology - Last 24 Hours (Table) 08/30/20 14:45 Blood Culture - Final Blood No Growth after 144 hours 08/30/20 14:30 Blood Culture - Final Blood No Growth after 144 hours 09/04/20 12:02 Urine Culture - Final Urine,Clean Catch Assessment and Plan Plan: 1 Chronic alcoholic liver disease with alcoholic cirrhosis, Previous history of heavy alcohol consumption, although patient states he has not had anything to drink in one year. 2 Severe abdominal ascites, status post high volume paracentesis on 08/30/2020. The ascitic fluid cultures was negative for any bacterial growth 3 Multiple paracentesis for ascites, on 09/01/2020, with 12 L being removed, Third paracentesis performed on 09/03/2020, with 3.2 L removed. 4 septic shock with Leukocytosis hypotension likely secondary to septic shock. The patient currently is on pressors and norepinephrine is running at 0.45 mcg/kg per minute. The exact source is not clear. Blood cultures of been negative. Nevertheless, the patient became progressively more and shock state and he developed severe leukocytosis and hemodynamic collapse. He also has signs of multisystem organ failure. 5 Abdominal compartment syndrome (ACS) at this point in time as the patient's ascites has been drained in the patient's abdomen is soft.. 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 6 Mild alcohol induced coagulopathy. 7 atrial fibrillation with rapid ventricular response, currently on a Cardizem drip for rate control 8 Acute on Chronic kidney disease. The patient's creatinine is at the rise in the patient's creatinine is up to 3.8 along with diminished urine output . The patient is in a positive fluid balance 9 lactic acidosis with secondary anion gap metabolic acidosis. 10 Hyperbilirubinemia. 11 severe leukocytosis white cell count continues to rise. 12 Chronic constipation. 13 MELD score is 19, suggesting a 6%, 3 month mortality. 14 mass and the thorax based on the CAT scan of the abdomen and pelvis that showed a posteriorly located thoracic mass, could be essentially mediastinal origin. 15 altered mental status with ammonia level of 18. Altered mentation secondary to metabolic encephalopathy related to septic shock and liver failure. Plan: The patient is very acutely ill. Continue bicarbonate infusion for now Received 1 unit of blood for hemoglobin of 6.6 and the patient is currently receiving units of packed RBC The patient's norepinephrine dose is currently at 0.45 mcg/kg per minute Follow-up on the blood cultures and the lactic acid level This continued IV Rocephin and put the patient IV Zosyn and daptomycin The patient is a DO NOT RESUSCITATE. Ammonia level Keep the Cardizem drip for rate control Monitor potassium level and the rest of the electrolytes We did have a conversation with him today about CODE STATUS. He would not want to be on life support. I think that's a good decision given his chronic health issues. Prognosis is very poor.
[2020-09-06] MEDS: MIDODRINE 5 MG TAB PO SCH ×2 (09:03→13:13)
[2020-09-06] MEDS: PANTOPRAZOLE 40 MG TABLET PO SCH (09:03)
[2020-09-06] MEDS: polyethylene glycoL 3350 17 GM POWD.PACK PO SCH (09:04)
[2020-09-06] MEDS: LACTULOSE 20 GM/30 ML CUP PO SCH (09:04)
[2020-09-06] MEDS: PIPERACILLIN-TAZOBACTAM 3.375 GM in SODIUM CHLORIDE 0.9% 100 ML IVPB SCH ×2 (09:08→15:42)
[2020-09-06 09:10] LABS: Phosphorus 5.3 mg/dL (2.5-4.5)
[2020-09-06 09:14] LABS: Uric Acid 15.7 mg/dL (3.5-8.5)
--- NOTE | 2020-09-06 09:18 | P.PN ---
Subjective Progress Note Date: 09/06/20 This is a 55-year-old gentleman with history of alcohol abuse, cirrhosis and liver failure with ascites and also renal failure. Patient has been hypotensive on Levophed. We're asked to see the patient because of atrial fibrillation with RVR. His heart rate has been in 120 to 130 range. Patient also has peripheral edema. His no CODE STATUS. Because of renal failure and also liver failure, patient could not receive rate controlling medication oriented, medications. Patient is also hypertensive. We will start small dose of Cardizem 5 mg followed by 5 mg drip and see if patient can tolerate. Patient's overall prognosis is poor. 09/06/2020: This patient. Condition has deteriorated significantly. Patient is not responding and is attended. His white count went up high. His felt that patient may have underlying septic shock. Likewise patient is still needs fibrillation with heart rate is relatively controlled with the average of about 100 to 110. Patient is on IV Cardizem. Patient is also on multiple antibiotics and also vessel process. There is a possibility that he could be considered for comfort care or hospice care. Meanwhile, will continue current supportive care. Prognosis is very poor Objective - Vital Signs Vital signs: Vital Signs Temp 98 F 09/06/20 08:33 Pulse 107 H 09/06/20 08:45 Resp 15 09/06/20 08:45 BP 94/60 09/06/20 08:45 Pulse Ox 93 L 09/06/20 08:45 Intake & Output 09/05/20 09/06/20 09/06/20 18:59 06:59 18:59 Intake Total 2049.379 2327.560 510 Output Total 405 490 65 Balance 5516.346 7428.560 445 Weight 96.6 kg 98.2 kg Intake: IV 1450 2000 200 Dextrose 5% in Water 1, 800 200 000 ml @ 100 mls/hr IV . [id number] [facility] with Sodium Bicarb (1 Meq/ml) 150 ml Rx#:[id number] Diltiazem 125 mg In 50 Sodium Chloride 0.9% 100 ml @ 5 MG/HR 5 mls/hr IV .Q24H [facility] Rx#:[id number] Sodium Chloride 0.9% 1, 1000 1200 000 ml @ 100 mls/hr IV . Q10H [facility] Rx#:[id number] Sodium Chloride 0.9% 1, 150 000 ml @ 75 mls/hr IV . [id number] [facility] Rx#:[id number] Vancomycin 1,500 mg In 250 Sodium Chloride 0.9% 250 ml @ 125 mls/hr IVPB ONCE ONE Rx#:[id number] Intake, IV Titration 599.379 287.560 Amount Diltiazem 125 mg In 100.75 Sodium Chloride 0.9% 100 ml @ 5 MG/HR 5 mls/hr IV .Q24H [facility] Rx#:[id number] Norepinephrine 32 mg In 186.810 Sodium Chloride 0.9% 218 ml @ 0.05 MCG/KG/MIN 2. 264 mls/hr IV .Q24H [facility] Rx#:[id number] Norepinephrine 4 mg In 599.379 Sodium Chloride 0.9% 250 ml @ 0.05 MCG/KG/MIN 18. 802 mls/hr IV .[id number] [facility] Rx#:[id number] Tube Feeding 40 Blood Product 0 310 Rc As-1 Unit 0 310 [id number] Output: Urine 405 490 65 Other: Voiding Method Indwelling Catheter Indwelling Catheter Indwelling Catheter ABP, PAP, CO, CI - Last Documented Arterial Blood Pressure 82/42 - Exam GENERAL EXAM: Patient is obtunded HEENT: Normocephalic. NECK: No masses, no nuchal rigidity. CHEST: No chest wall deformity. LUNGS: Equal air entry with no crackles or wheeze. HEART: S1 and S2 normal . Irregular heart sounds ABDOMEN: No hepatosplenomegaly, normal bowel sounds, no guarding or rigidity. SKIN: No rashes CENTRAL NERVOUS SYSTEM: Patient is obtunded EXTREMITIES: Mild edema - Labs CBC & Chem 7: 09/06/20 03:30 09/06/20 03:30 Labs: Abnormal Lab Results - Last 24 Hours (Table) 09/04/20 09/05/20 09/05/20 Range/Units 06:54 11:52 11:52 WBC (3.8-10.6) k/uL RBC (4.30-5.90) m/uL Hgb (13.0-17.5) gm/dL Hct (39.0-53.0) % MCHC (31.0-37.0) g/dL RDW (11.5-15.5) % Plt Count (150-450) k/uL Blast Cells % % Neutrophils # (Manual) (1.3-7.7) k/uL Lymphocytes # (Manual) (1.0-4.8) k/uL Monocytes # (Manual) (0-1.0) k/uL Metamyelocytes # (Man) (0) k/uL Myelocytes # (Manual) (0) k/uL Promyelocytes # (Man) (0) k/uL Blast Cells # (Man) (0) k/uL Nucleated RBCs (0-0) /100 WBC Sodium (137-145) mmol/L Potassium 5.4 H (3.5-5.1) mmol/L Chloride (98-107) mmol/L Carbon Dioxide (22-30) mmol/L BUN (9-20) mg/dL Creatinine (0.66-1.25) mg/dL Glucose (74-99) mg/dL Plasma Lactic Acid Benigno 4.5 H* (0.7-2.0) mmol/L Uric Acid (3.5-8.5) mg/dL Calcium (8.4-10.2) mg/dL Phosphorus (2.5-4.5) mg/dL Total Bilirubin (0.2-1.3) mg/dL AST (17-59) U/L Alkaline Phosphatase (38-126) U/L Total Protein (6.3-8.2) g/dL Albumin (3.5-5.0) g/dL Crossmatch See Detail 09/05/20 09/05/20 09/05/20 Range/Units 14:55 19:47 19:47 WBC (3.8-10.6) k/uL RBC (4.30-5.90) m/uL Hgb (13.0-17.5) gm/dL Hct (39.0-53.0) % MCHC (31.0-37.0) g/dL RDW (11.5-15.5) % Plt Count (150-450) k/uL Blast Cells % % Neutrophils # (Manual) (1.3-7.7) k/uL Lymphocytes # (Manual) (1.0-4.8) k/uL Monocytes # (Manual) (0-1.0) k/uL Metamyelocytes # (Man) (0) k/uL Myelocytes # (Manual) (0) k/uL Promyelocytes # (Man) (0) k/uL Blast Cells # (Man) (0) k/uL Nucleated RBCs (0-0) /100 WBC Sodium (137-145) mmol/L Potassium 5.8 H (3.5-5.1) mmol/L Chloride (98-107) mmol/L Carbon Dioxide (22-30) mmol/L BUN (9-20) mg/dL Creatinine (0.66-1.25) mg/dL Glucose (74-99) mg/dL Plasma Lactic Acid Benigno 4.8 H* 7.1 H* (0.7-2.0) mmol/L Uric Acid (3.5-8.5) mg/dL Calcium (8.4-10.2) mg/dL Phosphorus (2.5-4.5) mg/dL Total Bilirubin (0.2-1.3) mg/dL AST (17-59) U/L Alkaline Phosphatase (38-126) U/L Total Protein (6.3-8.2) g/dL Albumin (3.5-5.0) g/dL Crossmatch 09/05/20 09/05/20 09/05/20 Range/Units 20:50 20:50 22:22 WBC 162.2 H* (3.8-10.6) k/uL RBC 2.40 L (4.30-5.90) m/uL Hgb 7.1 L (13.0-17.5) gm/dL Hct 22.6 L (39.0-53.0) % MCHC (31.0-37.0) g/dL RDW 24.6 H (11.5-15.5) % Plt Count 108 L (150-450) k/uL Blast Cells % 7 H* % Neutrophils # (Manual) 108.60 H (1.3-7.7) k/uL Lymphocytes # (Manual) 8.11 H (1.0-4.8) k/uL Monocytes # (Manual) 11.35 H (0-1.0) k/uL Metamyelocytes # (Man) 8.11 H (0) k/uL Myelocytes # (Manual) 16.22 H (0) k/uL Promyelocytes # (Man) (0) k/uL Blast Cells # (Man) 11.35 H (0) k/uL Nucleated RBCs 20 H (0-0) /100 WBC Sodium 133 L (137-145) mmol/L Potassium 5.9 H (3.5-5.1) mmol/L Chloride (98-107) mmol/L Carbon Dioxide 12 L (22-30) mmol/L BUN 81 H (9-20) mg/dL Creatinine 3.53 H (0.66-1.25) mg/dL Glucose (74-99) mg/dL Plasma Lactic Acid Benigno 8.9 H* (0.7-2.0) mmol/L Uric Acid (3.5-8.5) mg/dL Calcium 8.0 L (8.4-10.2) mg/dL Phosphorus (2.5-4.5) mg/dL Total Bilirubin 4.9 H (0.2-1.3) mg/dL AST 73 H (17-59) U/L Alkaline Phosphatase 201 H (38-126) U/L Total Protein 4.9 L (6.3-8.2) g/dL Albumin 2.2 L (3.5-5.0) g/dL Crossmatch 09/06/20 09/06/20 09/06/20 Range/Units 00:55 00:55 03:30 WBC 184.3 H* (3.8-10.6) k/uL RBC 2.34 L (4.30-5.90) m/uL Hgb 6.6 L* (13.0-17.5) gm/dL Hct 21.9 L (39.0-53.0) % MCHC 30.3 L (31.0-37.0) g/dL RDW 24.2 H (11.5-15.5) % Plt Count 108 L (150-450) k/uL Blast Cells % 1 H* % Neutrophils # (Manual) 112.40 H (1.3-7.7) k/uL Lymphocytes # (Manual) (1.0-4.8) k/uL Monocytes # (Manual) 49.76 H (0-1.0) k/uL Metamyelocytes # (Man) 11.06 H (0) k/uL Myelocytes # (Manual) 5.53 H (0) k/uL Promyelocytes # (Man) 3.69 H (0) k/uL Blast Cells # (Man) 1.84 H (0) k/uL Nucleated RBCs 12 H (0-0) /100 WBC Sodium (137-145) mmol/L Potassium 5.2 H (3.5-5.1) mmol/L Chloride (98-107) mmol/L Carbon Dioxide (22-30) mmol/L BUN (9-20) mg/dL Creatinine (0.66-1.25) mg/dL Glucose (74-99) mg/dL Plasma Lactic Acid Benigno 6.3 H* (0.7-2.0) mmol/L Uric Acid (3.5-8.5) mg/dL Calcium (8.4-10.2) mg/dL Phosphorus (2.5-4.5) mg/dL Total Bilirubin (0.2-1.3) mg/dL AST (17-59) U/L Alkaline Phosphatase (38-126) U/L Total Protein (6.3-8.2) g/dL Albumin (3.5-5.0) g/dL Crossmatch 09/06/20 09/06/20 09/06/20 Range/Units 03:30 03:30 03:30 WBC (3.8-10.6) k/uL RBC (4.30-5.90) m/uL Hgb (13.0-17.5) gm/dL Hct (39.0-53.0) % MCHC (31.0-37.0) g/dL RDW (11.5-15.5) % Plt Count (150-450) k/uL Blast Cells % % Neutrophils # (Manual) (1.3-7.7) k/uL Lymphocytes # (Manual) (1.0-4.8) k/uL Monocytes # (Manual) (0-1.0) k/uL Metamyelocytes # (Man) (0) k/uL Myelocytes # (Manual) (0) k/uL Promyelocytes # (Man) (0) k/uL Blast Cells # (Man) (0) k/uL Nucleated RBCs (0-0) /100 WBC Sodium 135 L (137-145) mmol/L Potassium 5.3 H (3.5-5.1) mmol/L Chloride 108 H (98-107) mmol/L Carbon Dioxide 16 L (22-30) mmol/L BUN 83 H (9-20) mg/dL Creatinine 3.64 H (0.66-1.25) mg/dL Glucose 106 H (74-99) mg/dL Plasma Lactic Acid Benigno 7.1 H* (0.7-2.0) mmol/L Uric Acid 15.7 H* (3.5-8.5) mg/dL Calcium 7.8 L (8.4-10.2) mg/dL Phosphorus 5.3 H (2.5-4.5) mg/dL Total Bilirubin 5.6 H (0.2-1.3) mg/dL AST 76 H (17-59) U/L Alkaline Phosphatase 189 H (38-126) U/L Total Protein 4.7 L (6.3-8.2) g/dL Albumin 2.1 L (3.5-5.0) g/dL Crossmatch 09/06/20 Range/Units 05:55 WBC (3.8-10.6) k/uL RBC (4.30-5.90) m/uL Hgb (13.0-17.5) gm/dL Hct (39.0-53.0) % MCHC (31.0-37.0) g/dL RDW (11.5-15.5) % Plt Count (150-450) k/uL Blast Cells % % Neutrophils # (Manual) (1.3-7.7) k/uL Lymphocytes # (Manual) (1.0-4.8) k/uL Monocytes # (Manual) (0-1.0) k/uL Metamyelocytes # (Man) (0) k/uL Myelocytes # (Manual) (0) k/uL Promyelocytes # (Man) (0) k/uL Blast Cells # (Man) (0) k/uL Nucleated RBCs (0-0) /100 WBC Sodium (137-145) mmol/L Potassium (3.5-5.1) mmol/L Chloride (98-107) mmol/L Carbon Dioxide (22-30) mmol/L BUN (9-20) mg/dL Creatinine (0.66-1.25) mg/dL Glucose (74-99) mg/dL Plasma Lactic Acid Benigno 8.1 H* (0.7-2.0) mmol/L Uric Acid (3.5-8.5) mg/dL Calcium (8.4-10.2) mg/dL Phosphorus (2.5-4.5) mg/dL Total Bilirubin (0.2-1.3) mg/dL AST (17-59) U/L Alkaline Phosphatase (38-126) U/L Total Protein (6.3-8.2) g/dL Albumin (3.5-5.0) g/dL Crossmatch Microbiology - Last 24 Hours (Table) 08/30/20 14:45 Blood Culture - Final Blood No Growth after 144 hours 08/30/20 14:30 Blood Culture - Final Blood No Growth after 144 hours 09/04/20 12:02 Urine Culture - Final Urine,Clean Catch Assessment and Plan Plan: Patient is being treated with atypical fibrillation with RVR. Patient also has underlying liver failure, ascites, and also renal failure. We'll try small dose of Cardizem. Prognosis is poor. In 09/06/2020: Patient is currently on IV Cardizem. He is also getting norepinephrine and multiple antibiotics. Patient received blood transfusion. It appears that patient has underlying severe sepsis. He may be considered for comfort care.
[2020-09-06] MEDS ORDERED: RASBURICASE 6 MG in SODIUM CHLORIDE 0.9% 46 ML IV STA (09:21)
--- NOTE | 2020-09-06 09:21 | P.PN ---
Subjective Patient is seen in follow-up for acute kidney injury and hyponatremia. Sodium level 135 today. Renal function continues to worsen. On higher dose Levophed. Urine output 30-70 mL an hour. Received a unit of blood this morning. Maintained on bicarb drip. Lactic acid 8.1. Also on Cardizem drip for A. fib. Vital signs are stable. On Levophed. General: On nasal cannula. HEENT: Head exam is unremarkable. Neck is without jugular venous distension. LUNGS: Breath sounds decreased. HEART: Irregular rate and rhythm. ABDOMEN: Soft, nontender. EXTREMITITES: 1+ edema. Objective - Vital Signs Vital signs: Vital Signs Temp 98 F 09/06/20 08:33 Pulse 107 H 09/06/20 08:45 Resp 15 09/06/20 08:45 BP 94/60 09/06/20 08:45 Pulse Ox 93 L 09/06/20 08:45 Intake & Output 09/05/20 09/06/20 09/06/20 18:59 06:59 18:59 Intake Total 2049.379 2327.560 510 Output Total 405 490 65 Balance 8873.488 9921.560 445 Weight 96.6 kg 98.2 kg Intake: IV 1450 2000 200 Dextrose 5% in Water 1, 800 200 000 ml @ 100 mls/hr IV . [id number] [facility] with Sodium Bicarb (1 Meq/ml) 150 ml Rx#:[id number] Diltiazem 125 mg In 50 Sodium Chloride 0.9% 100 ml @ 5 MG/HR 5 mls/hr IV .Q24H [facility] Rx#:[id number] Sodium Chloride 0.9% 1, 1000 1200 000 ml @ 100 mls/hr IV . Q10H [facility] Rx#:[id number] Sodium Chloride 0.9% 1, 150 000 ml @ 75 mls/hr IV . [id number] [facility] Rx#:[id number] Vancomycin 1,500 mg In 250 Sodium Chloride 0.9% 250 ml @ 125 mls/hr IVPB ONCE ONE Rx#:[id number] Intake, IV Titration 599.379 287.560 Amount Diltiazem 125 mg In 100.75 Sodium Chloride 0.9% 100 ml @ 5 MG/HR 5 mls/hr IV .Q24H [facility] Rx#:[id number] Norepinephrine 32 mg In 186.810 Sodium Chloride 0.9% 218 ml @ 0.05 MCG/KG/MIN 2. 264 mls/hr IV .Q24H [facility] Rx#:[id number] Norepinephrine 4 mg In 599.379 Sodium Chloride 0.9% 250 ml @ 0.05 MCG/KG/MIN 18. 802 mls/hr IV .[id number] [facility] Rx#:[id number] Tube Feeding 40 Blood Product 0 310 Rc As-1 Unit 0 310 [id number] Output: Urine 405 490 65 Other: Voiding Method Indwelling Catheter Indwelling Catheter Indwelling Catheter ABP, PAP, CO, CI - Last Documented Arterial Blood Pressure 82/42 - Labs CBC & Chem 7: 09/06/20 03:30 09/06/20 03:30 Labs: Abnormal Lab Results - Last 24 Hours (Table) 09/04/20 09/05/20 09/05/20 Range/Units 06:54 11:52 11:52 WBC (3.8-10.6) k/uL RBC (4.30-5.90) m/uL Hgb (13.0-17.5) gm/dL Hct (39.0-53.0) % MCHC (31.0-37.0) g/dL RDW (11.5-15.5) % Plt Count (150-450) k/uL Blast Cells % % Neutrophils # (Manual) (1.3-7.7) k/uL Lymphocytes # (Manual) (1.0-4.8) k/uL Monocytes # (Manual) (0-1.0) k/uL Metamyelocytes # (Man) (0) k/uL Myelocytes # (Manual) (0) k/uL Promyelocytes # (Man) (0) k/uL Blast Cells # (Man) (0) k/uL Nucleated RBCs (0-0) /100 WBC Sodium (137-145) mmol/L Potassium 5.4 H (3.5-5.1) mmol/L Chloride (98-107) mmol/L Carbon Dioxide (22-30) mmol/L BUN (9-20) mg/dL Creatinine (0.66-1.25) mg/dL Glucose (74-99) mg/dL Plasma Lactic Acid Benigno 4.5 H* (0.7-2.0) mmol/L Calcium (8.4-10.2) mg/dL Total Bilirubin (0.2-1.3) mg/dL AST (17-59) U/L Alkaline Phosphatase (38-126) U/L Total Protein (6.3-8.2) g/dL Albumin (3.5-5.0) g/dL Crossmatch See Detail 09/05/20 09/05/20 09/05/20 Range/Units 14:55 19:47 19:47 WBC (3.8-10.6) k/uL RBC (4.30-5.90) m/uL Hgb (13.0-17.5) gm/dL Hct (39.0-53.0) % MCHC (31.0-37.0) g/dL RDW (11.5-15.5) % Plt Count (150-450) k/uL Blast Cells % % Neutrophils # (Manual) (1.3-7.7) k/uL Lymphocytes # (Manual) (1.0-4.8) k/uL Monocytes # (Manual) (0-1.0) k/uL Metamyelocytes # (Man) (0) k/uL Myelocytes # (Manual) (0) k/uL Promyelocytes # (Man) (0) k/uL Blast Cells # (Man) (0) k/uL Nucleated RBCs (0-0) /100 WBC Sodium (137-145) mmol/L Potassium 5.8 H (3.5-5.1) mmol/L Chloride (98-107) mmol/L Carbon Dioxide (22-30) mmol/L BUN (9-20) mg/dL Creatinine (0.66-1.25) mg/dL Glucose (74-99) mg/dL Plasma Lactic Acid Benigno 4.8 H* 7.1 H* (0.7-2.0) mmol/L Calcium (8.4-10.2) mg/dL Total Bilirubin (0.2-1.3) mg/dL AST (17-59) U/L Alkaline Phosphatase (38-126) U/L Total Protein (6.3-8.2) g/dL Albumin (3.5-5.0) g/dL Crossmatch 09/05/20 09/05/20 09/05/20 Range/Units 20:50 20:50 22:22 WBC 162.2 H* (3.8-10.6) k/uL RBC 2.40 L (4.30-5.90) m/uL Hgb 7.1 L (13.0-17.5) gm/dL Hct 22.6 L (39.0-53.0) % MCHC (31.0-37.0) g/dL RDW 24.6 H (11.5-15.5) % Plt Count 108 L (150-450) k/uL Blast Cells % 7 H* % Neutrophils # (Manual) 108.60 H (1.3-7.7) k/uL Lymphocytes # (Manual) 8.11 H (1.0-4.8) k/uL Monocytes # (Manual) 11.35 H (0-1.0) k/uL Metamyelocytes # (Man) 8.11 H (0) k/uL Myelocytes # (Manual) 16.22 H (0) k/uL Promyelocytes # (Man) (0) k/uL Blast Cells # (Man) 11.35 H (0) k/uL Nucleated RBCs 20 H (0-0) /100 WBC Sodium 133 L (137-145) mmol/L Potassium 5.9 H (3.5-5.1) mmol/L Chloride (98-107) mmol/L Carbon Dioxide 12 L (22-30) mmol/L BUN 81 H (9-20) mg/dL Creatinine 3.53 H (0.66-1.25) mg/dL Glucose (74-99) mg/dL Plasma Lactic Acid Benigno 8.9 H* (0.7-2.0) mmol/L Calcium 8.0 L (8.4-10.2) mg/dL Total Bilirubin 4.9 H (0.2-1.3) mg/dL AST 73 H (17-59) U/L Alkaline Phosphatase 201 H (38-126) U/L Total Protein 4.9 L (6.3-8.2) g/dL Albumin 2.2 L (3.5-5.0) g/dL Crossmatch 09/06/20 09/06/20 09/06/20 Range/Units 00:55 00:55 03:30 WBC 184.3 H* (3.8-10.6) k/uL RBC 2.34 L (4.30-5.90) m/uL Hgb 6.6 L* (13.0-17.5) gm/dL Hct 21.9 L (39.0-53.0) % MCHC 30.3 L (31.0-37.0) g/dL RDW 24.2 H (11.5-15.5) % Plt Count 108 L (150-450) k/uL Blast Cells % 1 H* % Neutrophils # (Manual) 112.40 H (1.3-7.7) k/uL Lymphocytes # (Manual) (1.0-4.8) k/uL Monocytes # (Manual) 49.76 H (0-1.0) k/uL Metamyelocytes # (Man) 11.06 H (0) k/uL Myelocytes # (Manual) 5.53 H (0) k/uL Promyelocytes # (Man) 3.69 H (0) k/uL Blast Cells # (Man) 1.84 H (0) k/uL Nucleated RBCs 12 H (0-0) /100 WBC Sodium (137-145) mmol/L Potassium 5.2 H (3.5-5.1) mmol/L Chloride (98-107) mmol/L Carbon Dioxide (22-30) mmol/L BUN (9-20) mg/dL Creatinine (0.66-1.25) mg/dL Glucose (74-99) mg/dL Plasma Lactic Acid Benigno 6.3 H* (0.7-2.0) mmol/L Calcium (8.4-10.2) mg/dL Total Bilirubin (0.2-1.3) mg/dL AST (17-59) U/L Alkaline Phosphatase (38-126) U/L Total Protein (6.3-8.2) g/dL Albumin (3.5-5.0) g/dL Crossmatch 09/06/20 09/06/20 09/06/20 Range/Units 03:30 03:30 05:55 WBC (3.8-10.6) k/uL RBC (4.30-5.90) m/uL Hgb (13.0-17.5) gm/dL Hct (39.0-53.0) % MCHC (31.0-37.0) g/dL RDW (11.5-15.5) % Plt Count (150-450) k/uL Blast Cells % % Neutrophils # (Manual) (1.3-7.7) k/uL Lymphocytes # (Manual) (1.0-4.8) k/uL Monocytes # (Manual) (0-1.0) k/uL Metamyelocytes # (Man) (0) k/uL Myelocytes # (Manual) (0) k/uL Promyelocytes # (Man) (0) k/uL Blast Cells # (Man) (0) k/uL Nucleated RBCs (0-0) /100 WBC Sodium 135 L (137-145) mmol/L Potassium 5.3 H (3.5-5.1) mmol/L Chloride 108 H (98-107) mmol/L Carbon Dioxide 16 L (22-30) mmol/L BUN 83 H (9-20) mg/dL Creatinine 3.64 H (0.66-1.25) mg/dL Glucose 106 H (74-99) mg/dL Plasma Lactic Acid Benigno 7.1 H* 8.1 H* (0.7-2.0) mmol/L Calcium 7.8 L (8.4-10.2) mg/dL Total Bilirubin 5.6 H (0.2-1.3) mg/dL AST 76 H (17-59) U/L Alkaline Phosphatase 189 H (38-126) U/L Total Protein 4.7 L (6.3-8.2) g/dL Albumin 2.1 L (3.5-5.0) g/dL Crossmatch Microbiology - Last 24 Hours (Table) 08/30/20 14:45 Blood Culture - Final Blood No Growth after 144 hours 08/30/20 14:30 Blood Culture - Final Blood No Growth after 144 hours 09/04/20 12:02 Urine Culture - Final Urine,Clean Catch Assessment and Plan Plan: Assessment: 1. Acute kidney injury secondary to ATN secondary to hypotension/shock. Also concern for hepatorenal syndrome. Renal function worse. Creatinine 3.64 today. 2. Hypervolemic hyponatremia. Status post [facility] [place] September 02. Sodium 135 today. 3. Ascites secondary to liver cirrhosis. Status post paracentesis on August 30 to September 01 with total 20 L removed; another paracentesis done September 03 with 3.2 L drained. 4. Hyperkalemia secondary to acute kidney injury and metabolic acidosis. Stable. 5. Metabolic acidosis secondary to acute kidney injury and IV fluids. Maintain on bicarb drip. 6. Acute blood loss anemia. Status post blood transfusion this morning. 7. Leukocytosis. Oncology following. ?CML. It. A. fib maintained on Cardizem drip. Plan: Maintain bicarb drip. Wean vasopressors. Maintain midodrine if able to take oral meds. Continue to monitor renal function and urine output. Overall prognosis guarded. Repeat BMP this evening.
[2020-09-06] MEDS: OCTREOTIDE 100 MCG/ML INJ SQ SCH ×2 (09:44→15:42)
[2020-09-06] MEDS: DEXTROSE 5% IN WATER 1,000 ML with SODIUM BICARB (1 MEQ/ML) 150 ML IV SCH (10:15)
--- NOTE | 2020-09-06 10:35 | P.PN ---
Subjective Progress Note Date: 09/06/20 Principal diagnosis: Decompensated alcoholic cirrhosis of the liver, ascites, hepatorenal syndrome This is a 55-year-old male patient who presented to the hospital with initial complaints of abdominal pain, distention and increased swelling in bilateral lower extremities. He is status post 2 large volume paracentesis underwent a third paracentesis yesterday with removal of 3.2 L of fluid. He has acute kidney injury which nephrology is following the patient for. He has had an elevated WBC but continuously is rising today WBC 184.3, hemoglobin 6.6, platelets 108. Sodium 135, potassium 5.4, BUN 83, creatinine 3.64. He has a plasma lactic acid 8.1. Getting 1 unit of packed red blood cell. Not had a bowel movement since admission. His condition continues to decline. He is seen and then examined in the ICU, he is moaning in pain, he is lethargic and did, he is rattling with his breathing. His family is here to discuss possible hospice. Objective - Vital Signs Vital signs: Vital Signs Temp 98 F 09/06/20 08:33 Pulse 112 H 09/06/20 10:00 Resp 15 09/06/20 10:00 BP 107/48 09/06/20 10:00 Pulse Ox 92 L 09/06/20 10:00 Intake & Output 09/05/20 09/06/20 09/06/20 18:59 06:59 18:59 Intake Total 2049.379 2327.560 710 Output Total 405 490 150 Balance 3515.051 5728.560 560 Weight 96.6 kg 98.2 kg Intake: IV 1450 2000 400 Dextrose 5% in Water 1, 800 400 000 ml @ 100 mls/hr IV . [id number] [facility] with Sodium Bicarb (1 Meq/ml) 150 ml Rx#:[id number] Diltiazem 125 mg In 50 Sodium Chloride 0.9% 100 ml @ 5 MG/HR 5 mls/hr IV .Q24H [facility] Rx#:[id number] Sodium Chloride 0.9% 1, 1000 1200 000 ml @ 100 mls/hr IV . Q10H [facility] Rx#:[id number] Sodium Chloride 0.9% 1, 150 000 ml @ 75 mls/hr IV . [id number] [facility] Rx#:[id number] Vancomycin 1,500 mg In 250 Sodium Chloride 0.9% 250 ml @ 125 mls/hr IVPB ONCE ONE Rx#:[id number] Intake, IV Titration 599.379 287.560 Amount Diltiazem 125 mg In 100.75 Sodium Chloride 0.9% 100 ml @ 5 MG/HR 5 mls/hr IV .Q24H [facility] Rx#:[id number] Norepinephrine 32 mg In 186.810 Sodium Chloride 0.9% 218 ml @ 0.05 MCG/KG/MIN 2. 264 mls/hr IV .Q24H [facility] Rx#:[id number] Norepinephrine 4 mg In 599.379 Sodium Chloride 0.9% 250 ml @ 0.05 MCG/KG/MIN 18. 802 mls/hr IV .[id number] [facility] Rx#:[id number] Tube Feeding 40 Blood Product 0 310 Rc As-1 Unit 0 310 [id number] Output: Urine 405 490 150 Other: Voiding Method Indwelling Catheter Indwelling Catheter Indwelling Catheter ABP, PAP, CO, CI - Last Documented Arterial Blood Pressure 77/44 - Exam General appearance: The patient is lethargic and obtunded, ill appearing, oriented. HET: Head is normocephalic and atraumatic. Conjunctiva pink. Sclera anicteric. Neck: Supple without lymphadenopathy. Abdomen: Tender, Distended with bowel sounds. No guarding or rigidity. Extremities: Normal skin color and turgor. Bilateral lower extremity pitting edema. Neurological: Obtunded, oriented 3. - Labs CBC & Chem 7: 09/06/20 03:30 09/06/20 03:30 Labs: Abnormal Lab Results - Last 24 Hours (Table) 09/04/20 09/05/20 09/05/20 Range/Units 06:54 11:52 11:52 WBC (3.8-10.6) k/uL RBC (4.30-5.90) m/uL Hgb (13.0-17.5) gm/dL Hct (39.0-53.0) % MCHC (31.0-37.0) g/dL RDW (11.5-15.5) % Plt Count (150-450) k/uL Blast Cells % % Neutrophils # (Manual) (1.3-7.7) k/uL Lymphocytes # (Manual) (1.0-4.8) k/uL Monocytes # (Manual) (0-1.0) k/uL Metamyelocytes # (Man) (0) k/uL Myelocytes # (Manual) (0) k/uL Promyelocytes # (Man) (0) k/uL Blast Cells # (Man) (0) k/uL Nucleated RBCs (0-0) /100 WBC Sodium (137-145) mmol/L Potassium 5.4 H (3.5-5.1) mmol/L Chloride (98-107) mmol/L Carbon Dioxide (22-30) mmol/L BUN (9-20) mg/dL Creatinine (0.66-1.25) mg/dL Glucose (74-99) mg/dL Plasma Lactic Acid Benigno 4.5 H* (0.7-2.0) mmol/L Uric Acid (3.5-8.5) mg/dL Calcium (8.4-10.2) mg/dL Phosphorus (2.5-4.5) mg/dL Total Bilirubin (0.2-1.3) mg/dL AST (17-59) U/L Alkaline Phosphatase (38-126) U/L Total Protein (6.3-8.2) g/dL Albumin (3.5-5.0) g/dL Crossmatch See Detail 09/05/20 09/05/20 09/05/20 Range/Units 14:55 19:47 19:47 WBC (3.8-10.6) k/uL RBC (4.30-5.90) m/uL Hgb (13.0-17.5) gm/dL Hct (39.0-53.0) % MCHC (31.0-37.0) g/dL RDW (11.5-15.5) % Plt Count (150-450) k/uL Blast Cells % % Neutrophils # (Manual) (1.3-7.7) k/uL Lymphocytes # (Manual) (1.0-4.8) k/uL Monocytes # (Manual) (0-1.0) k/uL Metamyelocytes # (Man) (0) k/uL Myelocytes # (Manual) (0) k/uL Promyelocytes # (Man) (0) k/uL Blast Cells # (Man) (0) k/uL Nucleated RBCs (0-0) /100 WBC Sodium (137-145) mmol/L Potassium 5.8 H (3.5-5.1) mmol/L Chloride (98-107) mmol/L Carbon Dioxide (22-30) mmol/L BUN (9-20) mg/dL Creatinine (0.66-1.25) mg/dL Glucose (74-99) mg/dL Plasma Lactic Acid Benigno 4.8 H* 7.1 H* (0.7-2.0) mmol/L Uric Acid (3.5-8.5) mg/dL Calcium (8.4-10.2) mg/dL Phosphorus (2.5-4.5) mg/dL Total Bilirubin (0.2-1.3) mg/dL AST (17-59) U/L Alkaline Phosphatase (38-126) U/L Total Protein (6.3-8.2) g/dL Albumin (3.5-5.0) g/dL Crossmatch 09/05/20 09/05/20 09/05/20 Range/Units 20:50 20:50 22:22 WBC 162.2 H* (3.8-10.6) k/uL RBC 2.40 L (4.30-5.90) m/uL Hgb 7.1 L (13.0-17.5) gm/dL Hct 22.6 L (39.0-53.0) % MCHC (31.0-37.0) g/dL RDW 24.6 H (11.5-15.5) % Plt Count 108 L (150-450) k/uL Blast Cells % 7 H* % Neutrophils # (Manual) 108.60 H (1.3-7.7) k/uL Lymphocytes # (Manual) 8.11 H (1.0-4.8) k/uL Monocytes # (Manual) 11.35 H (0-1.0) k/uL Metamyelocytes # (Man) 8.11 H (0) k/uL Myelocytes # (Manual) 16.22 H (0) k/uL Promyelocytes # (Man) (0) k/uL Blast Cells # (Man) 11.35 H (0) k/uL Nucleated RBCs 20 H (0-0) /100 WBC Sodium 133 L (137-145) mmol/L Potassium 5.9 H (3.5-5.1) mmol/L Chloride (98-107) mmol/L Carbon Dioxide 12 L (22-30) mmol/L BUN 81 H (9-20) mg/dL Creatinine 3.53 H (0.66-1.25) mg/dL Glucose (74-99) mg/dL Plasma Lactic Acid Benigno 8.9 H* (0.7-2.0) mmol/L Uric Acid (3.5-8.5) mg/dL Calcium 8.0 L (8.4-10.2) mg/dL Phosphorus (2.5-4.5) mg/dL Total Bilirubin 4.9 H (0.2-1.3) mg/dL AST 73 H (17-59) U/L Alkaline Phosphatase 201 H (38-126) U/L Total Protein 4.9 L (6.3-8.2) g/dL Albumin 2.2 L (3.5-5.0) g/dL Crossmatch 09/06/20 09/06/20 09/06/20 Range/Units 00:55 00:55 03:30 WBC 184.3 H* (3.8-10.6) k/uL RBC 2.34 L (4.30-5.90) m/uL Hgb 6.6 L* (13.0-17.5) gm/dL Hct 21.9 L (39.0-53.0) % MCHC 30.3 L (31.0-37.0) g/dL RDW 24.2 H (11.5-15.5) % Plt Count 108 L (150-450) k/uL Blast Cells % 1 H* % Neutrophils # (Manual) 112.40 H (1.3-7.7) k/uL Lymphocytes # (Manual) (1.0-4.8) k/uL Monocytes # (Manual) 49.76 H (0-1.0) k/uL Metamyelocytes # (Man) 11.06 H (0) k/uL Myelocytes # (Manual) 5.53 H (0) k/uL Promyelocytes # (Man) 3.69 H (0) k/uL Blast Cells # (Man) 1.84 H (0) k/uL Nucleated RBCs 12 H (0-0) /100 WBC Sodium (137-145) mmol/L Potassium 5.2 H (3.5-5.1) mmol/L Chloride (98-107) mmol/L Carbon Dioxide (22-30) mmol/L BUN (9-20) mg/dL Creatinine (0.66-1.25) mg/dL Glucose (74-99) mg/dL Plasma Lactic Acid Benigno 6.3 H* (0.7-2.0) mmol/L Uric Acid (3.5-8.5) mg/dL Calcium (8.4-10.2) mg/dL Phosphorus (2.5-4.5) mg/dL Total Bilirubin (0.2-1.3) mg/dL AST (17-59) U/L Alkaline Phosphatase (38-126) U/L Total Protein (6.3-8.2) g/dL Albumin (3.5-5.0) g/dL Crossmatch 09/06/20 09/06/20 09/06/20 Range/Units 03:30 03:30 03:30 WBC (3.8-10.6) k/uL RBC (4.30-5.90) m/uL Hgb (13.0-17.5) gm/dL Hct (39.0-53.0) % MCHC (31.0-37.0) g/dL RDW (11.5-15.5) % Plt Count (150-450) k/uL Blast Cells % % Neutrophils # (Manual) (1.3-7.7) k/uL Lymphocytes # (Manual) (1.0-4.8) k/uL Monocytes # (Manual) (0-1.0) k/uL Metamyelocytes # (Man) (0) k/uL Myelocytes # (Manual) (0) k/uL Promyelocytes # (Man) (0) k/uL Blast Cells # (Man) (0) k/uL Nucleated RBCs (0-0) /100 WBC Sodium 135 L (137-145) mmol/L Potassium 5.3 H (3.5-5.1) mmol/L Chloride 108 H (98-107) mmol/L Carbon Dioxide 16 L (22-30) mmol/L BUN 83 H (9-20) mg/dL Creatinine 3.64 H (0.66-1.25) mg/dL Glucose 106 H (74-99) mg/dL Plasma Lactic Acid Benigno 7.1 H* (0.7-2.0) mmol/L Uric Acid 15.7 H* (3.5-8.5) mg/dL Calcium 7.8 L (8.4-10.2) mg/dL Phosphorus 5.3 H (2.5-4.5) mg/dL Total Bilirubin 5.6 H (0.2-1.3) mg/dL AST 76 H (17-59) U/L Alkaline Phosphatase 189 H (38-126) U/L Total Protein 4.7 L (6.3-8.2) g/dL Albumin 2.1 L (3.5-5.0) g/dL Crossmatch 09/06/20 Range/Units 05:55 WBC (3.8-10.6) k/uL RBC (4.30-5.90) m/uL Hgb (13.0-17.5) gm/dL Hct (39.0-53.0) % MCHC (31.0-37.0) g/dL RDW (11.5-15.5) % Plt Count (150-450) k/uL Blast Cells % % Neutrophils # (Manual) (1.3-7.7) k/uL Lymphocytes # (Manual) (1.0-4.8) k/uL Monocytes # (Manual) (0-1.0) k/uL Metamyelocytes # (Man) (0) k/uL Myelocytes # (Manual) (0) k/uL Promyelocytes # (Man) (0) k/uL Blast Cells # (Man) (0) k/uL Nucleated RBCs (0-0) /100 WBC Sodium (137-145) mmol/L Potassium (3.5-5.1) mmol/L Chloride (98-107) mmol/L Carbon Dioxide (22-30) mmol/L BUN (9-20) mg/dL Creatinine (0.66-1.25) mg/dL Glucose (74-99) mg/dL Plasma Lactic Acid Benigno 8.1 H* (0.7-2.0) mmol/L Uric Acid (3.5-8.5) mg/dL Calcium (8.4-10.2) mg/dL Phosphorus (2.5-4.5) mg/dL Total Bilirubin (0.2-1.3) mg/dL AST (17-59) U/L Alkaline Phosphatase (38-126) U/L Total Protein (6.3-8.2) g/dL Albumin (3.5-5.0) g/dL Crossmatch Microbiology - Last 24 Hours (Table) 09/05/20 08:08 Blood Culture - Preliminary Blood No Growth after 24 hours 09/05/20 07:49 Blood Culture - Preliminary Blood No Growth after 24 hours 08/30/20 14:45 Blood Culture - Final Blood No Growth after 144 hours 08/30/20 14:30 Blood Culture - Final Blood No Growth after 144 hours 09/04/20 12:02 Urine Culture - Final Urine,Clean Catch Assessment and Plan (1) Decompensated hepatic cirrhosis Narrative/Plan: This is a 55-year-old male with a past medical history with significant alcohol abuse for over 40 years for which he states he was drinking a case of beer to a fifth a day. He now states that he has been sober for 1 year. He presented to the hospital due to abdominal distention, decreased oral intake and shortness of breath. A paracentesis was performed with 8.7 L of ascitic fluid removed. Suspicious is for decompensated alcoholic cirrhosis of the liver with new onset ascites. No prior history of encephalopathy or GI bleed. Patient's care somewhat complicated as he is hyponatremic with elevated creatinine with concerns for hepatorenal syndrome currently receiving octreotide. Patient status post 3 large volume paracentesis. He is status post albumin. Current Visit: Yes Status: Acute Code(s): K72.90 - HEPATIC FAILURE, UNSPECIFIED WITHOUT COMA; K74.60 - UNSPECIFIED CIRRHOSIS OF LIVER SNOMED C ode(s): 799430250 (2) Abdominal ascites Narrative/Plan: Nephrology is following patient closely and managing fluids. Appreciate recommendations from nephrology for diuretics. Current Visit: Yes Status: Acute Code(s): R18.8 - OTHER ASCITES SNOMED Cod e(s): 910261834 (3) Bicytopenia Narrative/Plan: Hematology/oncology on consult and following patient closely Current Visit: Yes Status: Acute Priority: High Code(s): D75.89 - OTHER SPECIFIED DISEASES OF BLOOD AND BLOOD-FORMING ORGANS SNOMED Code(s): 03490644 (4) Leukocytosis Narrative/Plan: Infectious disease consulted, antibiotics changed to IV Zosyn and daptomycin. Current Visit: Yes Status: Acute Priority: High Code(s): D72.829 - ELEVATED WHITE BLOOD CELL COUNT, UNSPECIFIED SNOMED Code(s): 891940799 Plan: Supportive care Daily CBC and BMP Low-sodium diet Continue alcohol abstinence Nephrology on consult and managing fluid status Patient is status three large volume paracentesis Lactulose 20mg BID for constipation Continue octreotide for suspected hepatorenal syndrome, albumin and midodrine had been discontinued Miralax daily, can increase to twice a day for constipation Continue with current antibiotics Consult infectious disease Hematology/Oncology on consult, appreciate their recommendations Very poorprognosis, family is at bedside to discuss possible Hopsice care. We'll continue to follow closely Dr. Brittaney Mchugh I agree with the dictator's note, documented as a scribe by Monique Roman.
--- NOTE | 2020-09-06 13:25 | P.PN ---
Subjective Progress Note Date: 09/06/20 Principal diagnosis: liver failure Sedated and ventilated. daughter and sister at bedside, awaiting son to come from [place] Objective - Vital Signs Vital signs: Vital Signs Temp 98 F 09/06/20 08:33 Pulse 112 H 09/06/20 10:00 Resp 15 09/06/20 10:00 BP 107/48 09/06/20 10:00 Pulse Ox 92 L 09/06/20 10:00 Intake & Output 09/05/20 09/06/20 09/06/20 18:59 06:59 18:59 Intake Total 2049.379 2327.560 710 Output Total 405 490 150 Balance 5583.091 9244.560 560 Weight 96.6 kg 98.2 kg Intake: IV 1450 2000 400 Dextrose 5% in Water 1, 800 400 000 ml @ 100 mls/hr IV . [id number] [facility] with Sodium Bicarb (1 Meq/ml) 150 ml Rx#:[id number] Diltiazem 125 mg In 50 Sodium Chloride 0.9% 100 ml @ 5 MG/HR 5 mls/hr IV .Q24H [facility] Rx#:[id number] Sodium Chloride 0.9% 1, 1000 1200 000 ml @ 100 mls/hr IV . Q10H [facility] Rx#:[id number] Sodium Chloride 0.9% 1, 150 000 ml @ 75 mls/hr IV . [id number] [facility] Rx#:[id number] Vancomycin 1,500 mg In 250 Sodium Chloride 0.9% 250 ml @ 125 mls/hr IVPB ONCE ONE Rx#:[id number] Intake, IV Titration 599.379 287.560 Amount Diltiazem 125 mg In 100.75 Sodium Chloride 0.9% 100 ml @ 5 MG/HR 5 mls/hr IV .Q24H [facility] Rx#:[id number] Norepinephrine 32 mg In 186.810 Sodium Chloride 0.9% 218 ml @ 0.05 MCG/KG/MIN 2. 264 mls/hr IV .Q24H [facility] Rx#:[id number] Norepinephrine 4 mg In 599.379 Sodium Chloride 0.9% 250 ml @ 0.05 MCG/KG/MIN 18. 802 mls/hr IV .[id number] [facility] Rx#:[id number] Tube Feeding 40 Blood Product 0 310 Rc As-1 Unit 0 310 [id number] Output: Urine 405 490 150 Other: Voiding Method Indwelling Catheter Indwelling Catheter Indwelling Catheter ABP, PAP, CO, CI - Last Documented Arterial Blood Pressure 77/44 - Constitutional General appearance: Present: thin - Respiratory Respiratory: bilateral: rhonchi (harsh) - Cardiovascular Heart sounds: normal: S1, S2 Abnormal Heart Sounds: Absent: systolic murmur, diastolic murmur, rub, S3 Gallop, S4 Gallop, click, other - Peripheral edema leg Peripheral Edema: bilateral: Trace - Gastrointestinal General gastrointestinal: Present: distended, soft - Integumentary Integumentary: Present: pale - Musculoskeletal Musculoskeletal: Present: generalized weakness - Psychiatric Psychiatric Comment(s): unable to arouse pt to enough to answer questions Psychiatric: Absent: A&O x's 3, appropriate affect, intact judgment & insight - Labs CBC & Chem 7: 09/06/20 03:30 09/06/20 03:30 Labs: Abnormal Lab Results - Last 24 Hours (Table) 09/04/20 09/05/20 09/05/20 Range/Units 06:54 11:52 11:52 WBC (3.8-10.6) k/uL RBC (4.30-5.90) m/uL Hgb (13.0-17.5) gm/dL Hct (39.0-53.0) % MCHC (31.0-37.0) g/dL RDW (11.5-15.5) % Plt Count (150-450) k/uL Blast Cells % % Neutrophils # (Manual) (1.3-7.7) k/uL Lymphocytes # (Manual) (1.0-4.8) k/uL Monocytes # (Manual) (0-1.0) k/uL Metamyelocytes # (Man) (0) k/uL Myelocytes # (Manual) (0) k/uL Promyelocytes # (Man) (0) k/uL Blast Cells # (Man) (0) k/uL Nucleated RBCs (0-0) /100 WBC Sodium (137-145) mmol/L Potassium 5.4 H (3.5-5.1) mmol/L Chloride (98-107) mmol/L Carbon Dioxide (22-30) mmol/L BUN (9-20) mg/dL Creatinine (0.66-1.25) mg/dL Glucose (74-99) mg/dL Plasma Lactic Acid Benigno 4.5 H* (0.7-2.0) mmol/L Uric Acid (3.5-8.5) mg/dL Calcium (8.4-10.2) mg/dL Phosphorus (2.5-4.5) mg/dL Total Bilirubin (0.2-1.3) mg/dL AST (17-59) U/L Alkaline Phosphatase (38-126) U/L Total Protein (6.3-8.2) g/dL Albumin (3.5-5.0) g/dL Crossmatch See Detail 09/05/20 09/05/20 09/05/20 Range/Units 14:55 19:47 19:47 WBC (3.8-10.6) k/uL RBC (4.30-5.90) m/uL Hgb (13.0-17.5) gm/dL Hct (39.0-53.0) % MCHC (31.0-37.0) g/dL RDW (11.5-15.5) % Plt Count (150-450) k/uL Blast Cells % % Neutrophils # (Manual) (1.3-7.7) k/uL Lymphocytes # (Manual) (1.0-4.8) k/uL Monocytes # (Manual) (0-1.0) k/uL Metamyelocytes # (Man) (0) k/uL Myelocytes # (Manual) (0) k/uL Promyelocytes # (Man) (0) k/uL Blast Cells # (Man) (0) k/uL Nucleated RBCs (0-0) /100 WBC Sodium (137-145) mmol/L Potassium 5.8 H (3.5-5.1) mmol/L Chloride (98-107) mmol/L Carbon Dioxide (22-30) mmol/L BUN (9-20) mg/dL Creatinine (0.66-1.25) mg/dL Glucose (74-99) mg/dL Plasma Lactic Acid Benigno 4.8 H* 7.1 H* (0.7-2.0) mmol/L Uric Acid (3.5-8.5) mg/dL Calcium (8.4-10.2) mg/dL Phosphorus (2.5-4.5) mg/dL Total Bilirubin (0.2-1.3) mg/dL AST (17-59) U/L Alkaline Phosphatase (38-126) U/L Total Protein (6.3-8.2) g/dL Albumin (3.5-5.0) g/dL Crossmatch 09/05/20 09/05/20 09/05/20 Range/Units 20:50 20:50 22:22 WBC 162.2 H* (3.8-10.6) k/uL RBC 2.40 L (4.30-5.90) m/uL Hgb 7.1 L (13.0-17.5) gm/dL Hct 22.6 L (39.0-53.0) % MCHC (31.0-37.0) g/dL RDW 24.6 H (11.5-15.5) % Plt Count 108 L (150-450) k/uL Blast Cells % 7 H* % Neutrophils # (Manual) 108.60 H (1.3-7.7) k/uL Lymphocytes # (Manual) 8.11 H (1.0-4.8) k/uL Monocytes # (Manual) 11.35 H (0-1.0) k/uL Metamyelocytes # (Man) 8.11 H (0) k/uL Myelocytes # (Manual) 16.22 H (0) k/uL Promyelocytes # (Man) (0) k/uL Blast Cells # (Man) 11.35 H (0) k/uL Nucleated RBCs 20 H (0-0) /100 WBC Sodium 133 L (137-145) mmol/L Potassium 5.9 H (3.5-5.1) mmol/L Chloride (98-107) mmol/L Carbon Dioxide 12 L (22-30) mmol/L BUN 81 H (9-20) mg/dL Creatinine 3.53 H (0.66-1.25) mg/dL Glucose (74-99) mg/dL Plasma Lactic Acid Benigno 8.9 H* (0.7-2.0) mmol/L Uric Acid (3.5-8.5) mg/dL Calcium 8.0 L (8.4-10.2) mg/dL Phosphorus (2.5-4.5) mg/dL Total Bilirubin 4.9 H (0.2-1.3) mg/dL AST 73 H (17-59) U/L Alkaline Phosphatase 201 H (38-126) U/L Total Protein 4.9 L (6.3-8.2) g/dL Albumin 2.2 L (3.5-5.0) g/dL Crossmatch 09/06/20 09/06/20 09/06/20 Range/Units 00:55 00:55 03:30 WBC 184.3 H* (3.8-10.6) k/uL RBC 2.34 L (4.30-5.90) m/uL Hgb 6.6 L* (13.0-17.5) gm/dL Hct 21.9 L (39.0-53.0) % MCHC 30.3 L (31.0-37.0) g/dL RDW 24.2 H (11.5-15.5) % Plt Count 108 L (150-450) k/uL Blast Cells % 1 H* % Neutrophils # (Manual) 112.40 H (1.3-7.7) k/uL Lymphocytes # (Manual) (1.0-4.8) k/uL Monocytes # (Manual) 49.76 H (0-1.0) k/uL Metamyelocytes # (Man) 11.06 H (0) k/uL Myelocytes # (Manual) 5.53 H (0) k/uL Promyelocytes # (Man) 3.69 H (0) k/uL Blast Cells # (Man) 1.84 H (0) k/uL Nucleated RBCs 12 H (0-0) /100 WBC Sodium (137-145) mmol/L Potassium 5.2 H (3.5-5.1) mmol/L Chloride (98-107) mmol/L Carbon Dioxide (22-30) mmol/L BUN (9-20) mg/dL Creatinine (0.66-1.25) mg/dL Glucose (74-99) mg/dL Plasma Lactic Acid Benigno 6.3 H* (0.7-2.0) mmol/L Uric Acid (3.5-8.5) mg/dL Calcium (8.4-10.2) mg/dL Phosphorus (2.5-4.5) mg/dL Total Bilirubin (0.2-1.3) mg/dL AST (17-59) U/L Alkaline Phosphatase (38-126) U/L Total Protein (6.3-8.2) g/dL Albumin (3.5-5.0) g/dL Crossmatch 09/06/20 09/06/20 09/06/20 Range/Units 03:30 03:30 03:30 WBC (3.8-10.6) k/uL RBC (4.30-5.90) m/uL Hgb (13.0-17.5) gm/dL Hct (39.0-53.0) % MCHC (31.0-37.0) g/dL RDW (11.5-15.5) % Plt Count (150-450) k/uL Blast Cells % % Neutrophils # (Manual) (1.3-7.7) k/uL Lymphocytes # (Manual) (1.0-4.8) k/uL Monocytes # (Manual) (0-1.0) k/uL Metamyelocytes # (Man) (0) k/uL Myelocytes # (Manual) (0) k/uL Promyelocytes # (Man) (0) k/uL Blast Cells # (Man) (0) k/uL Nucleated RBCs (0-0) /100 WBC Sodium 135 L (137-145) mmol/L Potassium 5.3 H (3.5-5.1) mmol/L Chloride 108 H (98-107) mmol/L Carbon Dioxide 16 L (22-30) mmol/L BUN 83 H (9-20) mg/dL Creatinine 3.64 H (0.66-1.25) mg/dL Glucose 106 H (74-99) mg/dL Plasma Lactic Acid Benigno 7.1 H* (0.7-2.0) mmol/L Uric Acid 15.7 H* (3.5-8.5) mg/dL Calcium 7.8 L (8.4-10.2) mg/dL Phosphorus 5.3 H (2.5-4.5) mg/dL Total Bilirubin 5.6 H (0.2-1.3) mg/dL AST 76 H (17-59) U/L Alkaline Phosphatase 189 H (38-126) U/L Total Protein 4.7 L (6.3-8.2) g/dL Albumin 2.1 L (3.5-5.0) g/dL Crossmatch 09/06/20 Range/Units 05:55 WBC (3.8-10.6) k/uL RBC (4.30-5.90) m/uL Hgb (13.0-17.5) gm/dL Hct (39.0-53.0) % MCHC (31.0-37.0) g/dL RDW (11.5-15.5) % Plt Count (150-450) k/uL Blast Cells % % Neutrophils # (Manual) (1.3-7.7) k/uL Lymphocytes # (Manual) (1.0-4.8) k/uL Monocytes # (Manual) (0-1.0) k/uL Metamyelocytes # (Man) (0) k/uL Myelocytes # (Manual) (0) k/uL Promyelocytes # (Man) (0) k/uL Blast Cells # (Man) (0) k/uL Nucleated RBCs (0-0) /100 WBC Sodium (137-145) mmol/L Potassium (3.5-5.1) mmol/L Chloride (98-107) mmol/L Carbon Dioxide (22-30) mmol/L BUN (9-20) mg/dL Creatinine (0.66-1.25) mg/dL Glucose (74-99) mg/dL Plasma Lactic Acid Benigno 8.1 H* (0.7-2.0) mmol/L Uric Acid (3.5-8.5) mg/dL Calcium (8.4-10.2) mg/dL Phosphorus (2.5-4.5) mg/dL Total Bilirubin (0.2-1.3) mg/dL AST (17-59) U/L Alkaline Phosphatase (38-126) U/L Total Protein (6.3-8.2) g/dL Albumin (3.5-5.0) g/dL Crossmatch Microbiology - Last 24 Hours (Table) 09/05/20 08:08 Blood Culture - Preliminary Blood No Growth after 24 hours 09/05/20 07:49 Blood Culture - Preliminary Blood No Growth after 24 hours 08/30/20 14:45 Blood Culture - Final Blood No Growth after 144 hours 08/30/20 14:30 Blood Culture - Final Blood No Growth after 144 hours 09/04/20 12:02 Urine Culture - Final Urine,Clean Catch Assessment and Plan (1) Hyperuricemia Narrative/Plan: Urinc acid 15.7. Possible tumor lysis. Elitek ordered. Current Visit: Yes Status: Acute Priority: High Code(s): E79.0 - HYPERURICEMIA W/O SIGNS OF INFLAM ARTHRIT AND TOPHACEOUS DIS SNOMED Code(s): 33752485 (2) Leukocytosis Narrative/Plan: Reviewed peripheral smear with Litigation Assistant. 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 BCR-ABL and flow cytometry ordered Only definite diagnosis would be from Bone marrow biopsy. Pt is not hemodynamically stable enough to do procedure Current Visit: Yes Status: Acute Priority: High Code(s): D72.829 - ELEVATED WHITE BLOOD CELL COUNT, UNSPECIFIED SNOMED Code(s): 182659875 (3) Bicytopenia Narrative/Plan: Pt was transfused with a unit of blood today for Hgb 6.6. Plt 108,0000 Current Visit: Yes Status: Acute Priority: High Code(s): D75.89 - OTHER SPECIFIED DISEASES OF BLOOD AND BLOOD-FORMING ORGANS SNOMED Code(s): 22465007 Plan: Peripheral smear reviewed. Increased neutrophil precursors. Blasts percentage is not incrementally elevating, in fact it is stable. Reviewing case with Lab CML is felt to be most likely diagnosis. Few additional labs have been ordered. Anemia is of new onset, thrombocytopenia has been present since at least 2019. Cause is multifactorial, including acute illness superimposed on suppressed marrow from EtOH abuse, possibly nutritional deficits. Pt has splenomegaly secondary to cirrhosis so, a degree of cellular destruction from splenic sequestration. Transfuse for hemoglobin less than 7 or if patient is symptomatic, pt 6.6 today and transfused with 1 unit. Transfused with platelets for a platelet count less than 10,000 unless patient is symptomatic. Did speak with daughter (who is caregiver) and sister. They are waiting for the pt son to arrive to discuss comfort measures and very likely hospice. I explained our suspicions for a chronic leukemia and that those can be treated rather successfully with minimal toxicities. Unfortunately, pt current condition is very critical. Family understands and has spoken to all the Providers on the case. They will make their decision in the next 24 hours. Time with Patient: Greater than 30 (>45 min spent counseling and coordinating care)
--- NOTE | 2020-09-06 15:26 | PN ---
PROGRESS NOTE DATE OF SERVICE: 09/06/2020 REASON FOR FOLLOWUP: Leukocytosis and a question of sepsis. INTERVAL HISTORY: The patient is currently afebrile. The patient is still requiring pressor support to maintain his blood pressure. The patient is seems to be more lethargic. He did respond to his name but did not answer any question. He has significant upper airway rhonchi. No vomiting or diarrhea reported by the nursing staff. PHYSICAL EXAMINATION: Blood pressure is 100/67, pulse of 110, temperature 98. He is 92% on 2 L nasal cannula. General description is a middle-aged male lying in bed in no distress. RESPIRATORY SYSTEM: Unlabored breathing. Bilateral upper airway rhonchi. HEART: S1, S2. Regular rate and rhythm. C ABDOMEN: Soft. No tenderness. EXTREMITIES: No edema of the feet. LABS: Hemoglobin 6.3, white count up to 184 with negative with multiple immature forms. BUN of 83, creatinine 3.64. Lactic acid 8.1. DIAGNOSTIC IMPRESSION AND PLAN: Patient with sepsis and the patient did have significantly elevated white count, more likely leukemoid reaction. The patient does not have any other obvious focus of infection and is covered broadly with daptomycin and Zosyn. Culture has been followed. Overall prognosis remains guarded. Family at the bedside. Questions were answered. MMODL / IJN: [id number] /
[2020-09-06 15:41] VITALS: TEMP 97.6
[2020-09-06] MEDS ORDERED: MORPHINE SULFATE 4 MG/ML SYRINGE IV PRN (17:18)
[2020-09-06] MEDS ORDERED: MORPHINE SULFATE 2 MG/ML SYRINGE IV PRN (17:18)
[2020-09-06] MEDS ORDERED: ATROPINE OPHTH SOLN 1% 5ML BTL SUBLINGUAL PRN (17:18)
[2020-09-06] MEDS ORDERED: LORazepam 2 MG/ML INJ IV PRN (17:18)
[2020-09-06] MEDS ORDERED: SCOPOLAMINE 1.5MG/72HR PATCH TRANSDERM SCH (17:30)
[2020-09-06] MEDS ORDERED: SODIUM CHLORIDE 0.9% 1,000 ML IV SCH (17:30)
[2020-09-06] MEDS ORDERED: MORPHINE SULFATE (100 MG/2 ML) 100 MG in SODIUM CHLORIDE 0.9% 100 ML IV SCH (17:45)
[2020-09-06 19:11] VITALS: BP 73/46; PULSE 117; RESP 14
--- NOTE | 2020-09-07 11:48 | CDI ---
Documentation Clarification Form Persistent atrial fib Date: 09/07/2020 1144 CDS: Jennifer Lizarraga RN, CCDS Admit Date: 08/30/2020 1347 D/C Date: 09/06/2020 2143 Patient Name: Marty Hansen ATTENTION: The Clinical Documentation Specialists (CDI) and [facility] Coding Staff appreciate your assistance in clarifying documentation. Please respond to the clarification below the line at the bottom and electronically sign. The CDI & [facility] Coding staff will review the response and follow-up if needed. Please note: Queries are made part of the Legal Health Record. If you have any questions, please contact the author of this message via ITS. Dr. Paul Atypical Atrial Fibrillation is documented in the Cardiology and pulmonary 08/26 & 09/06 Progress notes and requires further specificity. History/Risk Factors: ETOH liver cirrhosis with ascites, [place] with ATN secondary to hepatorenal syndrome, splenomegaly, Sepsis with septic shock, large volume paracentesis x 3, anemia of chronic disease, possible CML, hyponatremia, hyperkalemia, metabolic acidosis Clinical Indicators: 09/05-09/06 Pulmonary Progress note: "He is still tachycardic and heart disease in the 120 range and the patient is still in atrial fibrillation. Atrial fibrillation with rapid ventricular response, currently on a Cardizem drip for rate control " 09/05-09/06 Cardiology progress Note: "Patient is being treated with atypical fibrillation with RVR. Patient also has underlying liver failure, ascites, and also renal failure. We'll try small dose of Cardizem. Prognosis is poor." EKG: only EKG on chart is 08/30 Admission: ST Treatment: Cardizem drip @ 5 mg/hr 09/01-09/06 Levophed Gtt titrate for B/P In your professional opinion, can you please clarify the type of Atrial Fibrillation, if known? Chronic/Permanent Paroxysmal Persistent Other, please specify Unable to determine Please continue to document in your progress notes and discharge summary in order to capture severity of illness and risk of mortality. Include clinical findings that support your diagnosis. MTDD
== END 2020-09-06 21:43 | disposition expired | DRG 432 ==
LOC: EC 10:45 → 3SCARD 13:47 → 3NCARDOBS 20:31 → 3SCARD 20:31 → 2SICU 09-01 01:38
PROVIDERS: ADMIT Hospitalist; ATTEND Hospitalist
DX: K70.31 Alcoholic cirrhosis of liver with ascites (principal); K76.7 Hepatorenal syndrome; A41.9 Sepsis, unspecified organism; K72.00 Acute and subacute hepatic failure without coma; N17.0 Acute kidney failure with tubular necrosis; R65.21 Severe sepsis with septic shock; G93.41 Metabolic encephalopathy; D62 Acute posthemorrhagic anemia; D68.9 Coagulation defect, unspecified; E87.1 Hypo-osmolality and hyponatremia; E87.2 Acidosis; J98.11 Atelectasis; K76.6 Portal hypertension; M79.A3 Nontraumatic compartment syndrome of abdomen; J90 Pleural effusion, not elsewhere classified; K70.11 Alcoholic hepatitis with ascites; Z66 Do not resuscitate; Z51.5 Encounter for palliative care; D63.1 Anemia in chronic kidney disease; E83.51 Hypocalcemia; I27.20 Pulmonary hypertension, unspecified; E88.09 Other disorders of plasma-protein metabolism, not elsewhere classified; D69.59 Other secondary thrombocytopenia; I48.91 Unspecified atrial fibrillation; N18.9 Chronic kidney disease, unspecified; D72.823 Leukemoid reaction; E78.5 Hyperlipidemia, unspecified; E86.1 Hypovolemia; E87.5 Hyperkalemia; E87.70 Fluid overload, unspecified; G89.29 Other chronic pain; F10.21 Alcohol dependence, in remission; F31.9 Bipolar disorder, unspecified; D75.9 Disease of blood and blood-forming organs, unspecified; K21.9 Gastro-esophageal reflux disease without esophagitis; K44.9 Diaphragmatic hernia without obstruction or gangrene; R16.1 Splenomegaly, not elsewhere classified; K59.09 Other constipation; F17.210 Nicotine dependence, cigarettes, uncomplicated; H54.7 Unspecified visual loss; M54.9 Dorsalgia, unspecified; Z80.9 Family history of malignant neoplasm, unspecified; Z71.3 Dietary counseling and surveillance; Z88.8 Allergy status to other drugs, medicaments and biological substances
CPT/HCPCS: 36415; 49083; 71045; 71046; 74176; 76700; 76705; 80053; 80074; 81001; 81206; 82042; 82105; 82140; 82248; 82533; 82945; 83605; 83615; 83690; 83735; 83880; 83935; 84100; 84132; 84157; 84295; 84300; 84443; 84484; 84550; 85025; 85027; 85610; 85730; 86850; 86900; 86901; 86920; 87040; 87070; 87075; 87086; 87205; 88108; 88305; 89050; 93005; 96365; 96375; 99285